=== PATIENT | male | born 1940 | race Hispanic/Latino ===

== ENCOUNTER 2018-09-03 09:37 | Emergency (ER) | payer OTHER ==
--- NOTE | 2018-09-03 10:41 | RAD REPORT ---
EXAM DESCRIPTION: RAD - Ribs Left - 09/03/2018 10:35 am CLINICAL HISTORY: PAIN Trauma COMPARISON: Chest Pa And Lat (2 Views) dated 09/03/2018 FINDINGS: Left lateral seventh rib demonstrates cortical irregularity likely representing a fracture . Displacement is minimal. Additional fracture is not seen. No underlying pneumothorax is present.
--- NOTE | 2018-09-03 10:41 | RAD REPORT ---
EXAM DESCRIPTION: RAD - Chest Pa And Lat (2 Views) - 09/03/2018 10:35 am CLINICAL HISTORY: BLUNT CHEST TRAUMA Chest pain. COMPARISON: Ribs Left dated 09/03/2018 FINDINGS: Linear subsegmental atelectasis is present in the left lung base. No pneumothorax. No foca l infiltrate typical of pneumonia seen. The heart is normal in size.
[2018-09-03 10:59] LABS: Absolute Lymphocytes (CBC) 1.6 K/uL (0.7-4.9); Absolute Monocytes 0.7 K/uL (0.1-1.3); Absolute Neutrophil 5.5 K/uL (1.8-8.0); Basophils % 0.4 % (0-1.3); Eosinophils % 4.1 % (0-4.4); Hematocrit 48.2 % (39.6-49.0); Lymphocytes % 19.7 % (15.3-44.8); MCH 33.9 pg (27.0-35.0); MCV 97.8 fL (80-100); MPV 9.9 fL (7.6-11.3); Monocytes % 8.1 % (3.3-12.3); RBC Red Blood Cell Count 4.93 M/uL (4.33-5.43)
[2018-09-03 11:02] LABS: Protime INR 0.91
[2018-09-03 11:09] LABS: BUN Blood Urea Nitrogen 10 mg/dL (7-18); Bicarbonate 27 mmol/L (21-32); Glucose Level 94 mg/dL (74-106); Lipase 135 U/L (73-393); Potassium 4.2 mmol/L (3.5-5.1); Sodium Level 139 mmol/L (136-145)
--- NOTE | 2018-09-03 11:48 | RAD REPORT ---
EXAM DESCRIPTION: CT - Abdomen Pelvis W Contrast - 09/03/2018 11:22 am CLINICAL HISTORY: left sided abd trauma and bruising left flank, IV only COMPARISON: May 2018 CT imaging TECHNIQUE: Biphasic, helical CT imaging of the abdomen and pelvis was performed following 100 ml non -ionic IV contrast. Oral contrast was given. All CT scans are performed using dose optimization technique as appropriate and may include automated exposure control or mA/KV adjustment according to patient size. FINDINGS: There multiple small 4 mm or less pulmonary nodules in the lower lung moreira. No calcifica tions. No cardiomegaly or pericardial effusion. Small hiatal hernia is present. The liver, spleen, and pancreas show no suspicious findings. Gallbladder and biliary tree are also wi thout suspicious finding. Symmetric renal function is seen with no hydronephrosis or suspicious renal mass. Multiple left-side parapelvic cysts are present as an incidental finding. No dilated bowel loops or bowel wall thickening. Diverticulosis is present without diverticulitis. No appendicitis. No acute GI process seen. No free air, free fluid or inflammatory stranding. No mass or bulky lymphadenopathy. No omental thickening. Bilateral fat filled inguinal hernias are present. T he urinary bladder is without significant finding. No adrenal abnormality. No suspicious bony findings. No clearly blastic or pathologic bone findings. IMPRESSION: No evidence for an acute posttraumatic injury to the abdomen or pelvis. Multiple less than 6 millimeter sized pulmonary nodules seen in the lower lung moreira. Given the pros rubalcava cancer history, follow-up CT chest imaging may be needed as an outpatient for complete character ization of lung moreira. Nonacute findings detailed in the body of the report.
--- NOTE | 2018-09-03 11:54 | EDPHYS ---
Physician Documentation [facility] Name: Roxane Chávez Age: 77 yrs Sex: Male : 1940 Arrival Date: 09/03/2018 Time: 09:40 Bed 18 Private MD: ED Physician Luigi Gonsalves HPI: 09/03 10:22 This 77 yrs old Male presents to ER via Ambulatory with complaints of Fall rn Injury. 10:22 Details of fall: The patient fell from an upright position. Onset: The symptoms/episode rn began/occurred 2 day(s) ago. Associated injuries: The patient sustained injury to the chest, injury to the abdomen. Severity of symptoms: At their worst the symptoms were moderate, in the emergency department the symptoms are unchanged. The patient has not experienced similar symptoms in the past. The patient has not recently seen a physician. REports left abd and rib pain s/p fall 2 days ago, landed on 2x6, pain with movement, not on blood thinners.. Historical: - Allergies: 09:47 No Known Allergies; hj - Home Meds: 09:47 None [Active]; hj - PMHx: 09:47 None; hj - PSHx: 09:47 None; hj - Immunization history:: Adult Immunizations up to date. - Social history:: Smoking status: Patient/guardian denies using tobacco, Patient uses alcohol, occasionally. - Ebola Screening: : Patient negative for fever greater than or equal to 101.5 degrees Fahrenheit, and additional compatible Ebola Virus Disease symptoms Patient denies exposure to infectious person Patient denies travel to an Ebola-affected area in the 21 days before illness onset. - Family history:: not pertinent. - Hospitalizations: : No recent hospitalization is reported. ROS: 10:22 Constitutional: Negative for fever, chills, and weight loss, Eyes: Negative for injury, rn pain, redness, and discharge, Cardiovascular: + left chest wall injury and pain Respiratory: + pleuritic chest pain Abdomen/GI: + left sided abd pain Back: Negative for injury and pain, MS/Extremity: Negative for injury and deformity, Skin: + bruising Neuro: Negative for headache, weakness, numbness, tingling, and seizure. Exam: 10:22 Constitutional: This is a well developed, well nourished patient who is awake, alert, rn and in no acute distress. Head/Face: Normocephalic, atraumatic. Eyes: Pupils equal round and reactive to light, extra-ocular motions intact. Lids and lashes normal. Conjunctiva and sclera are non-icteric and not injected. Cornea within normal limits. Periorbital areas with no swelling, redness, or edema. Chest/axilla: Normal chest wall appearance and motion. No crepitus, + left anterior/inferior rib tenderness Cardiovascular: Regular rate and rhythm with a normal S1 and S2. No gallops, murmurs, or rubs. Normal PMI, no JVD. No pulse deficits. Respiratory: Lungs have equal breath sounds bilaterally, clear to auscultation. No rales, rhonchi or wheezes noted. No increased work of breathing, no retractions or nasal flaring. Abdomen/GI: soft, + left sided abd tenderness, + linear ecchymosis LLQ to epigastric region, no peritoneal signs Back: No spinal tenderness. No costovertebral tenderness. Full range of motion. MS/ Extremity: Pulses equal, no cyanosis. Neurovascular intact. Full, normal range of motion. Equal circumference. Neuro: Awake and alert, GCS 15, oriented to person, place, time, and situation. Cranial nerves II-XII grossly intact. Motor strength 5/5 in all extremities. Sensory grossly intact. Cerebellar exam normal. Normal gait. Vital Signs: 09:49 BP 172 / 127; Pulse 75; Resp 18; Temp 98.1(O); Pulse Ox 97% on R/A; Weight 77.11 kg; Height 5 ft. 11 in. (180.34 cm); Pain 9/10; 10:46 BP 161 / 102; Pulse 79; Resp 18; Pulse Ox 97% on R/A; hj 11:56 BP 160 / 109; Pulse 80; Resp 18; Pulse Ox 97% on R/A; hj 09:49 Body Mass Index 23.71 (77.11 kg, 180.34 cm) 11:56 MD aware; MDM: 09:46 Patient medically screened. rn 11:52 Differential diagnosis: abrasion, contusion, fracture. Data reviewed: vital signs, rn nurses notes, lab test result(s), radiologic studies, plain films, and as a result, I will discharge patient. Counseling: I had a detailed discussion with the patient and/or guardian regarding: the historical points, exam findings, and any diagnostic results supporting the discharge/admit diagnosis, lab results, radiology results, the need for outpatient follow up, to return to the emergency department if symptoms worsen or persist or if there are any questions or concerns that arise at home. Special discussion: Based on the patient's history, exam, and Dx evaluation, there is no indication for emergent intervention or inpatient Tx. It is understood by the patient/guardian that if the Sx's persist or worsen they need to return immediately for re-evaluation. I discussed with the patient/guardian in detail that at this point there is no indication for admission to the hospital. It is understood, however, that if the symptoms persist or worsen the patient needs to return immediately for re-evaluation. 11:52 Special discussion: I discussed with the patient the need to follow-up with the rn PCP/specialist for the noted incidental finding on X-ray/CT scanning. 09/03 09:52 Order name: CBC with Diff; Complete Time: 11:13 09/03 09:52 Order name: Basic Metabolic Panel; Complete Time: 11:13 09/03 09:52 Order name: CT Abd/Pelvis - W/Contrast; Complete Time: 11:51 09/03 09:52 Order name: Protime (+inr); Complete Time: 11:13 09/03 09:52 Order name: Ptt, Activated; Complete Time: 11:13 09/03 09:52 Order name: Lipase; Complete Time: 11:13 09/03 09:52 Order name: IV Start; Complete Time: 10:05 09/03 09:52 Order name: XRAY Chest Pa And Lat (2 Views); Complete Time: 10:58 09/03 09:52 Order name: XRAY Ribs LEFT; Complete Time: 10:58 09/03 10:15 Order name: Labs - recollect needed; Complete Time: 10:42 eb Administered Medications: 11:59 Drug: [place] 10 mg-325 mg 1 tabs Route: PO; hj 12:04 Follow up: Response: No adverse reaction; Pain is decreased hj Disposition: 09/03/18 11:53 Discharged to Home. Impression: Fracture of one rib, left side. - Condition is Stable. - Discharge Instructions: Rib Fracture. - Prescriptions for Tylenol- Codeine #3 300-30 mg Oral Tablet - take 1 tablet by ORAL route every 6 hours As needed; 15 tablet. - Medication Reconciliation Form, Thank You Letter, Antibiotic Education, Prescription Opioid Use form. - Follow up: Private Physician; When: As needed; Reason: Recheck today's complaints, Re-evaluation by your physician. - Problem is new. - Symptoms have improved. Signatures: Dispatcher [employer] EDMS Luigi Gonsalves MD MD rn Joaquin, Henry, RN RN hj Botello, Elizabeth eb Corrections: (The following items were deleted from the chart) 12:07 11:53 09/03/2018 11:53 Discharged to Home. Impression: Fracture of one rib, left side. hj Condition is Stable. Forms are Medication Reconciliation Form, Thank You Letter, Antibiotic Education, Prescription Opioid Use. Follow up: Private Physician; When: As needed; Reason: Recheck today's complaints, Re-evaluation by your physician. Problem is new. Symptoms have improved. rn
--- NOTE | 2018-09-03 11:54 | ER ---
Nurse's Notes [facility] Name: Roxane Chávez Age: 77 yrs Sex: Male : 1940 Arrival Date: 09/03/2018 Time: 09:40 Bed 18 Private MD: Diagnosis: Fracture of one rib, left side Presentation: 09/03 09:45 Presenting complaint: Patient states: was working at home last Saturday when i hit the L hj side of my chest and to a 2x6 wood; ever since monik been hurting especially when i cough or burp or deep breathe; denies SOB;. Transition of care: patient was not received from another setting of care. Onset of symptoms was August 31, 2018. Risk Assessment: Do you want to hurt yourself or someone else? Patient reports no desire to harm self or others. Initial Sepsis Screen: Does the patient meet any 2 criteria? No. Patient's initial sepsis screen is negative. Does the patient have a suspected source of infection? No. Patient's initial sepsis screen is negative. Care prior to arrival: None. 09:45 Method Of Arrival: Ambulatory 09:45 Acuity: TITO 4 hj Triage Assessment: 09:48 General: Appears in no apparent distress. uncomfortable, Behavior is calm, cooperative, hj appropriate for age. Pain: Complains of pain in L side of chest. Historical: - Allergies: 09:47 No Known Allergies; hj - Home Meds: 09:47 None [Active]; hj - PMHx: 09:47 None; hj - PSHx: 09:47 None; hj - Immunization history:: Adult Immunizations up to date. - Social history:: Smoking status: Patient/guardian denies using tobacco, Patient uses alcohol, occasionally. - Ebola Screening: : Patient negative for fever greater than or equal to 101.5 degrees Fahrenheit, and additional compatible Ebola Virus Disease symptoms Patient denies exposure to infectious person Patient denies travel to an Ebola-affected area in the 21 days before illness onset. - Family history:: not pertinent. - Hospitalizations: : No recent hospitalization is reported. Screenin:48 Abuse screen: Denies threats or abuse. Denies injuries from another. Nutritional hj screening: No deficits noted. Tuberculosis screening: No symptoms or risk factors identified. Fall Risk Fall in past 12 months (25 points). Assessment: 09:47 Reassessment: see triage for assessment;. hj 10:30 Reassessment: Patient and/or family updated on plan of care and expected duration. Pain hj level reassessed. Patient is alert, oriented x 3, equal unlabored respirations, skin warm/dry/pink. awaiting results and POC;. 11:56 Reassessment: Patient and/or family updated on plan of care and expected duration. Pain hj level reassessed. Patient is alert, oriented x 3, equal unlabored respirations, skin warm/dry/pink. provider in room for POC and D/C instructions;. Vital Signs: 09:49 BP 172 / 127; Pulse 75; Resp 18; Temp 98.1(O); Pulse Ox 97% on R/A; Weight 77.11 kg; hj Height 5 ft. 11 in. (180.34 cm); Pain 9/10; 10:46 BP 161 / 102; Pulse 79; Resp 18; Pulse Ox 97% on R/A; hj 11:56 BP 160 / 109; Pulse 80; Resp 18; Pulse Ox 97% on R/A; hj 09:49 Body Mass Index 23.71 (77.11 kg, 180.34 cm) hj 11:56 MD aware; hj ED Course: 09:40 Patient arrived in ED. iw 09:40 Carlos Disla, RN is Primary Nurse. hj 09:46 Luigi Gonsalves MD is Attending Physician. rn 09:47 Triage completed. hj 09:48 Arm band placed on right wrist. hj 09:49 Patient has correct armband on for positive identification. Bed in low position. Call light in reach. Side rails up X 1. Adult w/ patient. 09:54 Radiology exam delayed due to lab results not completed at this time. (BUN/Creatinine). sj 10:06 Initial lab(s) drawn, by ma, sent to lab. Inserted saline lock: 20 gauge in right mh5 forearm, using aseptic technique. Blood collected. 10:07 Protime (+inr) Sent. 5 10:07 Ptt, Activated Sent. 5 10:07 Basic Metabolic Panel Sent. 5 10:08 Warm blanket given. Pulse ox on. NIBP on. [facility] 10:08 Lipase Sent. 5 10:13 Radiology exam delayed due to lab results not completed at this time. (BUN/Creatinine). sj 10:34 XRAY Chest Pa And Lat (2 Views) In Process Unspecified. EDMS 10:34 XRAY Ribs LEFT In Process Unspecified. EDMS 10:42 Lab(s) recollected, by me, sent to lab. hj 11:03 Radiology exam delayed due to lab results not completed at this time. (BUN/Creatinine). sj 11:20 CT completed. Patient tolerated procedure well. Patient moved to CT via wheelchair. vr Patient moved back from CT. 11:21 CT Abd/Pelvis - W/Contrast In Process Unspecified. EDMS 12:06 No provider procedures requiring assistance completed. IV discontinued, intact, hj bleeding controlled, No redness/swelling at site. Pressure dressing applied. Administered Medications: 11:59 Drug: [place] 10 mg-325 mg 1 tabs Route: PO; hj 12:04 Follow up: Response: No adverse reaction; Pain is decreased hj Outcome: 11:53 Discharge ordered by MD. rn 12:06 Discharged to home ambulatory, with family. hj 12:06 Condition: stable 12:06 Discharge instructions given to patient, family, Instructed on discharge instructions, follow up and referral plans. medication usage, Demonstrated understanding of instructions, follow-up care, medications, Prescriptions given X 1. 12:07 Patient left the ED. Signatures: Dispatcher [employer] Nelly Pereira Irene, RN Luigi Rodriguez MD MD rn Davis, Victoria vr Joaquin, Henry, RN RN hj Martinez, Maria [facility]
[2018-09-03] MEDS ORDERED: HYDROCODONE/APAP 10/325 TAB ONE (12:07)
== END 2018-09-03 12:07 | disposition home or self-care (01) ==
LOC: ER 09:37
DX: S22.32XA Fracture of one rib, left side, initial encounter for closed fracture (principal); W19.XXXA Unspecified fall, initial encounter; Y93.9 Activity, unspecified; Y92.9 Unspecified place or not applicable
CPT/HCPCS: 36415; 71046; 71100; 74177; 80048; 83690; 85025; 85610; 85730; Q9967

== ENCOUNTER 2018-11-23 11:52 | Emergency (ER) | payer OTHER ==
--- NOTE | 2018-11-23 14:17 | RAD REPORT ---
EXAM DESCRIPTION: CT - Spine Lumbar Wo Con - 11/23/2018 2:06 pm CLINICAL HISTORY: Radiculopathy. Pain;Lower back pain COMPARISON: <Comparisons> TECHNIQUE: Axial noncontrast CT imaging of the lumbar spine was performed with coronal and sagittal re-formatted images. All CT scans are performed using dose optimization technique as appropriate and may include automated exposure control or mA/KV adjustment according to patient size. FINDINGS: No acute lumbar spine fracture seen. No aggressive marrow pattern or malalignment. 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 Paraspinal tissues are normal in thickness. No paraspinal abscess or hematoma seen. Mild posterior disc bulges are seen lower lumbar levels. Within these limitations, no high-grade keny l stenosis suspected. IMPRESSION: No acute cervical spine finding. 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
[2018-11-23 14:52] LABS: Absolute Lymphocytes (CBC) 1.2 K/uL (0.7-4.9); Absolute Monocytes 0.4 K/uL (0.1-1.3); Absolute Neutrophil 8.6 K/uL (1.8-8.0); Basophils % 0.2 % (0-1.3); Eosinophils % 0.8 % (0-4.4); Hematocrit 47.5 % (39.6-49.0); Lymphocytes % 11.7 % (15.3-44.8); MPV 10.4 fL (7.6-11.3); Monocytes % 3.6 % (3.3-12.3); RBC Red Blood Cell Count 4.88 M/uL (4.33-5.43)
--- NOTE | 2018-11-23 15:07 | RAD REPORT ---
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 No fracture, dislocation or aggressive bone lesion.
--- NOTE | 2018-11-23 15:08 | RAD REPORT ---
EXAM DESCRIPTION: RAD - Femur Right - 11/23/2018 3:00 pm CLINICAL HISTORY: PAIN COMPARISON: No comparisons FINDINGS: Osteoarthritic changes are seen involving the right hip. No fracture, dislocation or aggre ssive bone lesion is seen involving the right femur.
[2018-11-23 15:31] LABS: Urine Blood NEGATIVE (NEG); Urine Glucose NEGATIVE (NEG); Urine Protein NEGATIVE (NEG)
--- NOTE | 2018-11-23 15:37 | EDPHYS ---
Physician Documentation [facility] Name: Roxane Chávez Age: 77 yrs Sex: Male : 1940 Arrival Date: 11/23/2018 Time: 11:55 Bed 24 Private MD: HUGO Physician Suman Shah HPI: 11/23 13:43 This 77 yrs old Male presents to ER via Ambulatory with complaints of Back zach Pain. 13:43 The patient presents with pain that is acute, with no known mechanism of injury. The zach symptoms are located in the low back. Onset: The symptoms/episode began/occurred 3 day(s) ago. The pain radiates to the right low back. Associated signs and symptoms: The patient has no apparent associated signs or symptoms. The problem was sustained from unknown cause. Modifying factors: The patient symptoms are alleviated by remaining still, the patient symptoms are aggravated by bending, lifting. Severity of symptoms: At their worst the symptoms were mild, in the emergency department the symptoms are unchanged. The patient has experienced similar episodes in the past, a few times. Historical: - Allergies: 12:05 No Known Allergies; iw - PMHx: 12:05 prostate cancer; iw - PSHx: 12:05 None; iw - Immunization history:: Adult Immunizations not up to date. - Social history:: Smoking status: Smoking status: Patient/guardian denies using tobacco. - Ebola Screening: : Patient negative for fever greater than or equal to 101.5 degrees Fahrenheit, and additional compatible Ebola Virus Disease symptoms Patient denies exposure to infectious person Patient denies travel to an Ebola-affected area in the 21 days before illness onset No symptoms or risks identified at this time. - Family history:: not pertinent. ROS: 13:43 Constitutional: Negative for fever, chills, and weight loss, Eyes: Negative for injury, zach pain, redness, and discharge, ENT: Negative for injury, pain, and discharge, Neck: Negative for injury, pain, and swelling, Cardiovascular: Negative for chest pain, palpitations, and edema, Respiratory: Negative for shortness of breath, cough, wheezing, and pleuritic chest pain, Abdomen/GI: Negative for abdominal pain, nausea, vomiting, diarrhea, and constipation, Back: Negative for injury and pain, : Negative for injury, bleeding, discharge, and swelling, Skin: Negative for injury, rash, and discoloration, Neuro: Negative for headache, weakness, numbness, tingling, and seizure, Psych: Negative for depression, anxiety, suicide ideation, homicidal ideation, and hallucinations, Allergy/Immunology: Negative for hives, rash, and allergies, Endocrine: Negative for neck swelling, polydipsia, polyuria, polyphagia, and marked weight changes, Hematologic/Lymphatic: Negative for swollen nodes, abnormal bleeding, and unusual bruising. 13:43 MS/extremity: Positive for decreased range of motion, pain, of the lumbar area, right mid back and right low back. Exam: 13:43 Constitutional: This is a well developed, well nourished patient who is awake, alert, zach and in no acute distress. Head/Face: Normocephalic, atraumatic. Eyes: Pupils equal round and reactive to light, extra-ocular motions intact. Lids and lashes normal. Conjunctiva and sclera are non-icteric and not injected. Cornea within normal limits. Periorbital areas with no swelling, redness, or edema. ENT: Nares patent. No nasal discharge, no septal abnormalities noted. Tympanic membranes are normal and external auditory canals are clear. Oropharynx with no redness, swelling, or masses, exudates, or evidence of obstruction, uvula midline. Mucous membranes moist. Neck: Trachea midline, no thyromegaly or masses palpated, and no cervical lymphadenopathy. Supple, full range of motion without nuchal rigidity, or vertebral point tenderness. No Meningismus. Chest/axilla: Normal chest wall appearance and motion. Nontender with no deformity. No lesions are appreciated. Cardiovascular: Regular rate and rhythm with a normal S1 and S2. No gallops, murmurs, or rubs. Normal PMI, no JVD. No pulse deficits. Respiratory: Lungs have equal breath sounds bilaterally, clear to auscultation and percussion. No rales, rhonchi or wheezes noted. No increased work of breathing, no retractions or nasal flaring. Abdomen/GI: Soft, non-tender, with normal bowel sounds. No distension or tympany. No guarding or rebound. No evidence of tenderness throughout. Male : Normal genitalia with no discharge or lesions. Skin: Warm, dry with normal turgor. Normal color with no rashes, no lesions, and no evidence of cellulitis. MS/ Extremity: Pulses equal, no cyanosis. Neurovascular intact. Full, normal range of motion. Neuro: Awake and alert, GCS 15, oriented to person, place, time, and situation. Cranial nerves II-XII grossly intact. Motor strength 5/5 in all extremities. Sensory grossly intact. Cerebellar exam normal. Normal gait. Psych: Awake, alert, with orientation to person, place and time. Behavior, mood, and affect are within normal limits. 13:43 Back: pain, that is mild, ROM is painful, normal spinal alignment noted, CVA tenderness, is absent, vertebral tenderness, is not appreciated, muscle spasm, is appreciated in the right mid back and right low back. Vital Signs: 12:05 BP 191 / 110; Pulse 68; Resp 18; Temp 98.2(TE); Pulse Ox 100% ; Weight 80.29 kg; Height iw 5 ft. 11 in. (180.34 cm); Pain 7/10; 13:06 BP 214 / 97; Pulse 83; Resp 16; Pulse Ox 99% on R/A; Pain 8/10; mt 14:00 BP 195 / 140; Pulse 79; Resp 18; Pulse Ox 99% on R/A; mt 15:26 BP 190 / 99; iw 16:35 BP 186 / 90; Pulse 69; Resp 16; Pulse Ox 100% on R/A; iw 12:05 Body Mass Index 24.69 (80.29 kg, 180.34 cm) iw MDM: 13:18 Patient medically screened. [facility] 13:43 Data reviewed: vital signs, nurses notes, lab test result(s), radiologic studies, CT zach scan, plain films. 11/23 13:43 Order name: CBC with Diff; Complete Time: 15:15 [facility] 11/23 13:43 Order name: Urine Culture [facility] 11/23 13:43 Order name: Hip Right 2 View XRAY; Complete Time: 15:15 zach 11/23 13:43 Order name: Femur Right XRAY; Complete Time: 15:15 [facility] 11/23 14:51 Order name: Urine Dipstick--Ancillary (enter results); Complete Time: 15:36 ag 11/23 15:49 Order name: Comprehensive Metabolic Panel; Complete Time: 16:41 [facility] 11/23 13:43 Order name: CT Lumbar Spine Wo Con; Complete Time: 14:30 zach 11/23 13:43 Order name: Urine Dipstick-Ancillary (obtain specimen); Complete Time: 14:48 [facility] 11/23 13:43 Order name: IV Saline Lock - Large Bore; Complete Time: 14:48 [facility] Administered Medications: 15:48 Drug: Norvasc 5 mg Route: PO; iw 16:50 Follow up: Response: No adverse reaction iw 16:12 Drug: [place] (7.5 mg-325 mg) 1 tabs Route: PO; iw 16:50 Follow up: Response: No adverse reaction Disposition: 11/23/18 15:37 Discharged to Home. Impression: Sciatica, right side, Low back pain, Spondylolysis, lumbar region, Essential (primary) hypertension. - Condition is Stable. - Discharge Instructions: Back Pain, Adult, Chronic Back Pain, Hypertension, Musculoskeletal Pain, Sciatica, Back Injury Prevention, Zzmf-bt-Alup, Hypertension, Dmrf-uv-Hzzk, Back Pain, Adult, Zbhf-gk-Ufwz. - Prescriptions for Skelaxin 800 mg Oral Tablet - take 1 tablet by ORAL route every 6 hours As needed; 28 tablet. Tylenol- Codeine #3 300-30 mg Oral Tablet - take 2 tablet by ORAL route every 6 hours As needed; 30 tablet. Motrin IB 200 mg Oral Tablet - take 1 tablet by ORAL route every 6 hours As needed as needed with food; 20 tablet. Medrol (Zac) 4 mg Oral Tablets, Dose Pack - take 1 tablet by ORAL route as directed - follow package instructions; 1 packet. Norvasc 5 mg Oral Tablet - take 1 tablet by ORAL route once daily; 20 tablet. - Medication Reconciliation Form, Thank You Letter, Antibiotic Education, Prescription Opioid Use form. - Follow up: Private Physician; When: 2 - 3 days; Reason: Recheck today's complaints, Continuance of care, Re-evaluation by your physician. Follow up: Concepcion Catherine; When: 2 - 3 days; Reason: Recheck today's complaints, Continuance of care, Re-evaluation by your physician. - Problem is new. - Symptoms have improved. Signatures: Dispatcher [employer] Suman Hernandez MD MD cha Williams, Irene, RN RN iw Corrections: (The following items were deleted from the chart) 17:21 15:37 11/23/2018 15:37 Discharged to Home. Impression: Sciatica, right side; Low back iw pain; Spondylolysis, lumbar region; Essential (primary) hypertension. Condition is Stable. Discharge Instructions: Back Pain, Adult, Chronic Back Pain, Musculoskeletal Pain, Sciatica, Back Injury Prevention, Zzre-gh-Rjwd, Back Pain, Adult, Mmlw-yb-Ctgv. Prescriptions for Skelaxin 800 mg Oral Tablet - take 1 tablet by ORAL route every 6 hours As needed; 28 tablet, Tylenol-Codeine #3 300-30 mg Oral Tablet - take 2 tablet by ORAL route every 6 hours As needed; 30 tablet, Motrin IB 200 mg Oral Tablet - take 1 tablet by ORAL route every 6 hours As needed as needed with food; 20 tablet, Medrol (Zac) 4 mg Oral Tablets, Dose Pack - take 1 tablet by ORAL route as directed - follow package instructions; 1 packet. and Forms are Medication Reconciliation Form, Thank You Letter, Antibiotic Education, Prescription Opioid Use. Follow up: Private Physician; When: 2 - 3 days; Reason: Recheck today's complaints, Continuance of care, Re-evaluation by your physician. Follow up: Concepcion Catherine; When: 2 - 3 days; Reason: Recheck today's complaints, Continuance of care, Re-evaluation by your physician. Problem is new. Symptoms have improved. zach
--- NOTE | 2018-11-23 15:37 | ER ---
Nurse's Notes [facility] Name: Roxane Chávez Age: 77 yrs Sex: Male : 1940 Arrival Date: 11/23/2018 Time: 11:55 Bed 24 Private MD: Diagnosis: Sciatica, right side;Low back pain;Spondylolysis, lumbar region;Essential (primary) hypertension Presentation: 11/23 12:02 Presenting complaint: Patient states: pain radiating from right low back down to right iw knee, X 4 days, denies pain or blood in urine. Transition of care: patient was not received from another setting of care. Onset of symptoms was November 19, 2018. Risk Assessment: Do you want to hurt yourself or someone else? Patient reports no desire to harm self or others. Initial Sepsis Screen: Does the patient meet any 2 criteria? No. Patient's initial sepsis screen is negative. Does the patient have a suspected source of infection? No. Patient's initial sepsis screen is negative. Care prior to arrival: None. 12:02 Method Of Arrival: Ambulatory iw 12:02 Acuity: TITO 4 iw Historical: - Allergies: 12:05 No Known Allergies; iw - PMHx: 12:05 prostate cancer; iw - PSHx: 12:05 None; iw - Immunization history:: Adult Immunizations not up to date. - Social history:: Smoking status: Smoking status: Patient/guardian denies using tobacco. - Ebola Screening: : Patient negative for fever greater than or equal to 101.5 degrees Fahrenheit, and additional compatible Ebola Virus Disease symptoms Patient denies exposure to infectious person Patient denies travel to an Ebola-affected area in the 21 days before illness onset No symptoms or risks identified at this time. - Family history:: not pertinent. Screenin:16 Abuse screen: Denies threats or abuse. Nutritional screening: No deficits noted. tl3 Tuberculosis screening: No symptoms or risk factors identified. Fall Risk None identified. Assessment: 13:16 General: Appears uncomfortable, slender, well groomed, well developed, well nourished, tl3 Behavior is calm, cooperative, appropriate for age. Pain: Complains of pain in right sided pain that radiates from hip to knee. Neuro: Level of Consciousness is awake, alert, obeys commands, Oriented to person, place, time, situation, Appropriate for age. Cardiovascular: Patient's skin is warm and dry. Respiratory: Airway is patent Respiratory effort is even, unlabored, Respiratory pattern is regular, symmetrical. GI: No signs and/or symptoms were reported involving the gastrointestinal system. : No signs and/or symptoms were reported regarding the genitourinary system. EENT: No signs and/or symptoms were reported regarding the EENT system. Derm: No signs and/or symptoms reported regarding the dermatologic system. Musculoskeletal: Reports pain in right sided pain that starts at hip and goes down leg to knee since for the last four days, no known injury. 13:40 Reassessment: I agree with above assessment by Elida Browne LVN. iw 14:04 Reassessment: Patient appears in no apparent distress at this time. No changes from tl3 previously documented assessment. Patient and/or family updated on plan of care and expected duration. Pain level reassessed. Patient is alert, oriented x 3, equal unlabored respirations, skin warm/dry/pink. 14:48 Reassessment: Patient appears in no apparent distress at this time. No changes from tl3 previously documented assessment. Patient and/or family updated on plan of care and expected duration. Pain level reassessed. Patient is alert, oriented x 3, equal unlabored respirations, skin warm/dry/pink. 16:05 Reassessment: Patient appears in no apparent distress at this time. new orders placed iw for CMP, blood drawn and sent to lab, pt updated on POC, new pain med orders placed. Vital Signs: 12:05 BP 191 / 110; Pulse 68; Resp 18; Temp 98.2(TE); Pulse Ox 100% ; Weight 80.29 kg; Height iw 5 ft. 11 in. (180.34 cm); Pain 7/10; 13:06 BP 214 / 97; Pulse 83; Resp 16; Pulse Ox 99% on R/A; Pain 8/10; mt 14:00 BP 195 / 140; Pulse 79; Resp 18; Pulse Ox 99% on R/A; mt 15:26 BP 190 / 99; iw 16:35 BP 186 / 90; Pulse 69; Resp 16; Pulse Ox 100% on R/A; iw 12:05 Body Mass Index 24.69 (80.29 kg, 180.34 cm) iw ED Course: 11:55 Patient arrived in ED. iw 12:04 Triage completed. iw 12:05 Arm band placed on. iw 13:12 María Elena Allred, RN is Primary Nurse. tl3 13:16 Patient has correct armband on for positive identification. Bed in low position. Call tl3 light in reach. Side rails up X 1. Adult w/ patient. Pulse ox on. NIBP on. Warm blanket given. 13:16 No provider procedures requiring assistance completed. tl3 13:18 Suman Shah MD is Attending Physician. zach 14:[address] via wheelchair. tl3 14:06 CT Lumbar Spine Wo Con In Process Unspecified. EDMS 14:48 Initial lab(s) drawn, by me, sent to lab. Inserted saline lock: 20 gauge in right tl3 antecubital area, using aseptic technique. Blood collected. 15:00 Hip Right 2 View XRAY In Process Unspecified. EDMS 15:00 Femur Right XRAY In Process Unspecified. EDMS 15:15 Report received from María Elena Orr RN. ed1 15:34 Primary Nurse role handed off by María Elena Allred, RN ed1 15:34 Elida Browne LVN is Primary Nurse. ed1 15:37 Concepcion Biggs MD is Referral Physician. zach 17:21 Patient did not have IV access during this emergency room visit. iw Administered Medications: 15:48 Drug: Norvasc 5 mg Route: PO; iw 16:50 Follow up: Response: No adverse reaction iw 16:12 Drug: [place] (7.5 mg-325 mg) 1 tabs Route: PO; iw 16:50 Follow up: Response: No adverse reaction iw Outcome: 15:37 Discharge ordered by . zach 17:21 Discharged to home ambulatory, with family. iw 17:21 Condition: good 17:21 Discharge instructions given to patient, family, Instructed on discharge instructions, follow up and referral plans. medication usage, Demonstrated understanding of instructions, follow-up care, medications, Prescriptions given X 4. 17:21 Patient left the ED. iw Signatures: Dispatcher [employer] EDMS Suman Shah MD MD cha Williams, Irene, RN RN iw Elida Browne LVN LVN ed1 Becky Lala sd María Elena Allred, RN RN tl3 Corrections: (The following items were deleted from the chart) 15:27 12:05 BP 119 / 110; Pulse 68bpm; Resp 18bpm; Pulse Ox 100%; Temp 98.2F Temporal; 80.29 iw kg; Height 5 ft. 11 in.; BMI: 24.6; Pain 7/10; iw 15:28 15:26 BP 190 / 99; iw iw 16:19 16:18 BP 110 / 64; Pulse 79bpm; Resp 18bpm; Pulse Ox 100%; tl3 tl3 16:19 16:18 Reassessment: Patient appears in no apparent distress at this time. No changes tl3 from previously documented assessment. Patient and/or family updated on plan of care and expected duration. Pain level reassessed. Patient is alert, oriented x 3, equal unlabored respirations, skin warm/dry/pink. tl3
[2018-11-23] MEDS ORDERED: AMLODIPINE 5 MG TAB ONE (15:54)
[2018-11-23] MEDS ORDERED: HYDROCODONE/APAP 7.5/325 MG TAB ONE (16:17)
[2018-11-23 16:38] LABS: ALT/SGPT 31 U/L (12-78); AST/SGOT 27 U/L (15-37); Albumin 4.5 g/dL (3.4-5.0); Alkaline Phosphatase 75 U/L (45-117); BUN Blood Urea Nitrogen 8 mg/dL (7-18); Bicarbonate 29 mmol/L (21-32); Bilirubin Total 0.5 mg/dL (0.2-1.0); Glucose Level 102 mg/dL (74-106); Potassium 3.8 mmol/L (3.5-5.1); Protein, Total 8.2 g/dL (6.4-8.2); Sodium Level 140 mmol/L (136-145)
== END 2018-11-23 17:21 | disposition home or self-care (01) ==
LOC: ER 11:52
DX: M54.41 Lumbago with sciatica, right side (principal); M47.816 Spondylosis without myelopathy or radiculopathy, lumbar region; I10 Essential (primary) hypertension; Z85.46 Personal history of malignant neoplasm of prostate
CPT/HCPCS: 36415; 72131; 80053; 81003; 85025; 87086; 87088; 99284

== ENCOUNTER 2019-11-04 19:47 | Emergency (ER) | payer OTHER ==
--- OUTSIDE RECORDS SUMMARY | 2019-11-04 19:49 | XMS REPORT ---
:1940 [facility] [address] [place] [address] Dr. Phillips [address] [place] [id number] Care Team Providers Name Role Phone Unavailable Unavailable Unavailable Problems This patient has no known problems. Allergies, Adverse Reactions, Alerts This patient has no known allergies or adverse reactions. Medications This patient has no known medications. Encounters Start End Encounter Admission Attending Care Care Encounter Date/Time Date/Time Type Type Clinicians Facility Department ID 2019-10-14 2019-10-14 Inpatient E [facility] [id number] 03:16:00 00:09:00
[2019-11-04 21:14] LABS: Protime INR 1.11
[2019-11-04 21:15] LABS: Absolute Lymphocytes (CBC) 1.2 K/uL (0.7-4.9); Basophils % 0.2 % (0-1.3); Hematocrit 28.6 % (39.6-49.0); Lymphocytes % 7.9 % (15.3-44.8); MPV 8.9 fL (7.6-11.3); RBC Red Blood Cell Count 3.14 M/uL (4.33-5.43)
[2019-11-04 21:32] LABS: ALT/SGPT 19 U/L (12-78); AST/SGOT 16 U/L (15-37); Albumin 2.7 g/dL (3.4-5.0); Alkaline Phosphatase 79 U/L (45-117); BUN Blood Urea Nitrogen 8 mg/dL (7-18); Bicarbonate 28 mmol/L (21-32); Bilirubin Direct 0.3 mg/dL (0-0.2); Bilirubin Total 0.7 mg/dL (0.2-1.0); Glucose Level 112 mg/dL (74-106); NT PRO-BNP 2913 pg/mL (<450); Potassium 3.5 mmol/L (3.5-5.1); Sodium Level 137 mmol/L (136-145); Troponin (Emerg Dept Use Only) < 0.02 ng/mL (0.0-0.045)
--- NOTE | 2019-11-04 21:42 | RAD REPORT ---
EXAM DESCRIPTION: RAD - Elbow Left 3 View - 11/04/2019 8:56 pm CLINICAL HISTORY: Left elbow pain FINDINGS: No fracture or dislocation is seen. A posterior humeral fat pad is present indicative of joint effusion. Mild joint space narrowing
--- NOTE | 2019-11-04 23:12 | ER ---
Nurse's Notes [facility] Name: Roxane Chávez Age: 78 yrs Sex: Male : 1940 Arrival Date: 11/04/2019 Time: 19:49 Bed 2 Private MD: Diagnosis: Contusion of left upper arm Presentation: 11/04 20:07 Presenting complaint: Patient states: C/O left neck pain and knee that started on ao Saturday. Pt was hospitalize at [facility] and left AMA this morning. Per report pt had an elevated WBC and low K. Pt report pain is getting worst today. Transition of care: patient was not received from another setting of care. Onset of symptoms is unknown. Risk Assessment: Do you want to hurt yourself or someone else? Patient reports no desire to harm self or others. Initial Sepsis Screen: Does the patient meet any 2 criteria? No. Patient's initial sepsis screen is negative. Does the patient have a suspected source of infection? No. Patient's initial sepsis screen is negative. Care prior to arrival: None. 20:07 Method Of Arrival: Ambulatory ao 20:07 Acuity: TITO 3 ao Historical: - Allergies: 20:13 Ciprofloxacin; ao - Home Meds: 20:13 Protonix Oral [Active]; Sucralfate Oral [Active]; ao - PMHx: 20:13 Prostate Cancer; GERD; Hypertension; ao - PSHx: 20:13 None; ao - Immunization history:: Adult Immunizations unknown. - Social history:: Smoking status: Patient/guardian denies using tobacco. - Ebola Screening: : Patient negative for fever greater than or equal to 101.5 degrees Fahrenheit, and additional compatible Ebola Virus Disease symptoms Patient denies exposure to infectious person Patient denies travel to an Ebola-affected area in the 21 days before illness onset. Screenin:15 Abuse screen: Denies threats or abuse. Denies injuries from another. Nutritional ao screening: No deficits noted. Tuberculosis screening: No symptoms or risk factors identified. Fall Risk None identified. Assessment: 20:14 General: Appears in no apparent distress. comfortable, Behavior is calm, cooperative, ao appropriate for age. Pain: Complains of pain in neck and knee Pain does not radiate. Neuro: Level of Consciousness is awake, alert, obeys commands, Oriented to person, place, time, situation, Appropriate for age Moves all extremities. Weakness Speech is normal. Cardiovascular: Capillary refill < 3 seconds Patient's skin is warm and dry. Respiratory: Airway is patent Respiratory effort is even, unlabored, Respiratory pattern is regular, symmetrical. GI: Abdomen is flat, non-distended. : No signs and/or symptoms were reported regarding the genitourinary system. EENT: No signs and/or symptoms were reported regarding the EENT system. Derm: Skin is intact, Skin is pink, warm \T\ dry. normal, Skin temperature is warm C/O elbow pain. Musculoskeletal: Circulation, motion, and sensation intact. Range of motion: intact in all extremities, Swelling present in left arm and left elbow. 20:29 Pain: Complains of pain in left elbow, posterior neck. Musculoskeletal: Range of lp1 motion: limited in left elbow Swelling present in left elbow. 21:34 Reassessment: Patient appears in no apparent distress at this time. Patient and/or lp1 family updated on plan of care and expected duration. Pain level reassessed. Patient is alert, oriented x 3, equal unlabored respirations, skin warm/dry/pink. States tolerable pain to left elbow, denies need for medication. 22:30 Reassessment: Patient appears in no apparent distress at this time. No changes from lp1 previously documented assessment. Patient and/or family updated on plan of care and expected duration. Pain level reassessed. Patient resting, eyes closed, respirations unlabored. Vital Signs: 20:03 BP 141 / 74; Pulse 92; Resp 18; Temp 98.2; Pulse Ox 100% on R/A; Weight 81.65 kg; ao Height 5 ft. 11 in. (180.34 cm); Pain 7/10; 21:35 BP 140 / 74; Pulse 95; Resp 18; Pulse Ox 100% on R/A; lp1 22:56 BP 149 / 69; Pulse 89; Resp 18; Pulse Ox 100% ; ao 20:03 Body Mass Index 25.10 (81.65 kg, 180.34 cm) ao ED Course: 19:49 Patient arrived in ED. ag3 19:55 Hola Ortiz MD is Attending Physician. tw4 20:12 Triage completed. ao 20:14 Arm band placed on right wrist. Patient placed in an exam room, on a stretcher, on ao media monitor, on pulse oximetry, Patient notified of wait time. 20:15 Patient has correct armband on for positive identification. Placed in gown. Bed in low ao position. Call light in reach. monitor car operator on. Pulse ox on. NIBP on. 20:29 Gogo Cali, RN is Primary Nurse. lp1 20:43 EKG done, by ED staff, reviewed by Hola Ortiz MD. ao 20:56 Elbow Left 3 View XRAY In Process Unspecified. EDMS 21:06 Inserted saline lock: 20 gauge in right antecubital area, using aseptic technique. ao Blood collected. 22:24 CXR XRAY In Process Unspecified. EDMS 23:20 No provider procedures requiring assistance completed. IV discontinued, No lp1 redness/swelling at site. Pressure dressing applied. 23:20 Sling applied to left arm. lp1 Administered Medications: No medications were administered Outcome: 23:12 Discharge ordered by MD. tw4 23:20 Discharged to home with significant other. lp1 23:20 Condition: good 23:20 Discharge instructions given to patient, significant other, Instructed on discharge instructions, follow up and referral plans. medication usage, Demonstrated understanding of instructions, follow-up care, medications, Prescriptions given X 1. 23:34 Patient left the ED. lp1 Signatures: Dispatcher [employer] EDDE Gogo Cali, RN RN lp1 Greyson Jorgensen RN Hola Alcantar MD MD tw4 Madison Soriano ag3 Corrections: (The following items were deleted from the chart) 20:06 20:03 BP 141 / 74; Pulse 92bpm; Resp 18bpm; Pulse Ox 100% RA; Temp 98.2F; ao ao 21:36 20:14 Derm: Skin is intact, Skin is pink, warm \T\ dry. normal, Skin temperature is warm ao ao 21:36 20:14 Musculoskeletal: Circulation, motion, and sensation intact. Range of motion: ao intact in all extremities, ao
--- NOTE | 2019-11-04 23:13 | EDPHYS ---
Physician Documentation [facility] Name: Roxane Chávez Age: 78 yrs Sex: Male : 1940 Arrival Date: 11/04/2019 Time: 19:49 Bed 2 Private MD: ED Physician Hola Ortiz HPI: 11/05 05:31 This 78 yrs old Male presents to ER via Ambulatory with complaints of Arm Pain.tw4 05:31 The patient or guardian complains of pain, swelling, tenderness. The complaints affect tw4 the left antecubital area and left elbow. Context: The problem was sustained outdoors, resulted from a fall, on an outstretched hand. Onset: The symptoms/episode began/occurred last week. Treatment prior to arrival includes: no previous treatment. Modifying factors: The symptoms are alleviated by nothing. the symptoms are aggravated by nothing. Severity of symptoms: At their worst the symptoms were moderate, in the emergency department the symptoms are unchanged. 05:31 was admitted to hospital in [facility] for similar complaints. Received CT scan and tw4 workup which per patient states were negative. Pt was receiving antibiotics and left the hospital AMA. Historical: - Allergies: 11/04 20:13 Ciprofloxacin; ao - Home Meds: 20:13 Protonix Oral [Active]; Sucralfate Oral [Active]; ao - PMHx: 20:13 Prostate Cancer; GERD; Hypertension; ao - PSHx: 20:13 None; ao - Immunization history:: Adult Immunizations unknown. - Social history:: Smoking status: Patient/guardian denies using tobacco. - Ebola Screening: : Patient negative for fever greater than or equal to 101.5 degrees Fahrenheit, and additional compatible Ebola Virus Disease symptoms Patient denies exposure to infectious person Patient denies travel to an Ebola-affected area in the 21 days before illness onset. ROS: 11/05 05:31 Constitutional: Negative for fever, chills, and weight loss, Eyes: Negative for injury, tw4 pain, redness, and discharge, Cardiovascular: Negative for chest pain, palpitations, and edema, Respiratory: Negative for shortness of breath, cough, wheezing, and pleuritic chest pain, Abdomen/GI: Negative for abdominal pain, nausea, vomiting, diarrhea, and constipation, Back: Negative for injury and pain, Skin: Negative for injury, rash, and discoloration, Neuro: Negative for headache, weakness, numbness, tingling, and seizure. MS/extremity: Positive for injury or acute deformity, decreased range of motion, pain, swelling, tenderness, of the left antecubital area and left elbow, Negative for abrasion, bite, deformity, ecchymosis, erythema, laceration, paresthesias, puncture, rash, tingling, warmth. Exam: 05:31 Constitutional: This is a well developed, well nourished patient who is awake, alert, tw4 and in no acute distress. Head/Face: Normocephalic, atraumatic. Eyes: Pupils equal round and reactive to light, extra-ocular motions intact. Lids and lashes normal. Conjunctiva and sclera are non-icteric and not injected. Cornea within normal limits. Periorbital areas with no swelling, redness, or edema. Chest/axilla: Normal chest wall appearance and motion. Nontender with no deformity. No lesions are appreciated. Cardiovascular: Regular rate and rhythm with a normal S1 and S2. No gallops, murmurs, or rubs. Normal PMI, no JVD. No pulse deficits. Respiratory: Lungs have equal breath sounds bilaterally, clear to auscultation and percussion. No rales, rhonchi or wheezes noted. No increased work of breathing, no retractions or nasal flaring. Abdomen/GI: Soft, non-tender, with normal bowel sounds. No distension or tympany. No guarding or rebound. No evidence of tenderness throughout. Back: No spinal tenderness. No costovertebral tenderness. Full range of motion. Skin: Warm, dry with normal turgor. Normal color with no rashes, no lesions, and no evidence of cellulitis. Neuro: Awake and alert, GCS 15, oriented to person, place, time, and situation. Cranial nerves II-XII grossly intact. Motor strength 5/5 in all extremities. Sensory grossly intact. Cerebellar exam normal. Normal gait. 05:31 Musculoskeletal/extremity: Extremities: noted in the left antecubital area and left elbow: decreased ROM, pain, ROM: limited active range of motion due to pain, limited passive range of motion due to pain. 05:31 Musculoskeletal/extremity: ROM: Circulation is intact in all extremities. the left antecubital area and left elbow Compartment Syndrome exam of affected extremity: is normal. Vital Signs: 11/04 20:03 BP 141 / 74; Pulse 92; Resp 18; Temp 98.2; Pulse Ox 100% on R/A; Weight 81.65 kg; ao Height 5 ft. 11 in. (180.34 cm); Pain 7/10; 21:35 BP 140 / 74; Pulse 95; Resp 18; Pulse Ox 100% on R/A; lp1 22:56 BP 149 / 69; Pulse 89; Resp 18; Pulse Ox 100% ; ao 20:03 Body Mass Index 25.10 (81.65 kg, 180.34 cm) ao MDM: 19:56 Patient medically screened. tw4 11/05 05:39 Differential diagnosis: dislocation, open fracture, closed fracture, contusion. Data tw4 reviewed: vital signs, nurses notes. Data interpreted: Pulse oximetry: Interpretation: normal. Test interpretation: by ED physician or midlevel provider: ECG, plain radiologic studies. Counseling: I had a detailed discussion with the patient and/or guardian regarding: the historical points, exam findings, and any diagnostic results supporting the discharge/admit diagnosis, lab results, radiology results. 11/04 20:29 Order name: Basic Metabolic Panel; Complete Time: 21:36 tw4 11/04 21:36 Interpretation: Normal except: GLUC 112; GFR 83. tw4 11/04 20:29 Order name: CBC with Diff; Complete Time: 21:36 tw4 11/04 21:36 Interpretation: Normal except: WBC 15.0; RBC 3.14; HGB 9.5; HCT 28.6; MCV 91.0; MCH tw4 30.1; LYM% 7.9; COLT% 81.1; RDW 18.2; NEUT A 12.2; MNA 1.6. 11/04 20:29 Order name: LFT's; Complete Time: 21:36 tw4 11/04 21:36 Interpretation: Normal except: BILID 0.3; ALB 2.7; GLOB 4.3; A/G 0.6. tw4 11/04 20:29 Order name: Magnesium; Complete Time: 21:36 tw4 11/04 21:37 Interpretation: Within normal limits: MG 2.0. tw4 11/04 20:29 Order name: NT PRO-BNP; Complete Time: 21:36 tw4 11/04 21:36 Interpretation: Normal except: NT PRO-BNP 2913. tw11/04 20:29 Order name: PT-INR; Complete Time: 21:36 tw4 11/04 21:37 Interpretation: Normal except: PT 13.1. 11/04 20:29 Order name: Troponin (emerg Dept Use Only); Complete Time: 21:36 tw4 11/04 20:29 Order name: EKG; Complete Time: 20:30 4 11/04 20:29 Order name: Cardiac monitoring; Complete Time: 20:31 tw4 11/04 20:29 Order name: EKG - Nurse/Tech; Complete Time: 20:43 tw4 11/04 20:29 Order name: IV Saline Lock; Complete Time: 21:06 4 11/04 20:29 Order name: Labs collected and sent; Complete Time: 21:06 4 11/04 20:29 Order name: Elbow Left 3 View XRAY 11/04 21:37 Order name: CXR XRAY 11/04 20:29 Order name: O2 Per Protocol; Complete Time: 20:31 tw4 11/04 20:29 Order name: O2 Sat Monitoring; Complete Time: 20:31 tw4 11/04 23:19 Order name: Sling; Complete Time: 23:23 lp1 EC:39 Rate is 88 beats/min. Rhythm is regular. Right axis deviation noted. IL interval is tw4 normal. QRS interval is normal. QT interval is normal. No Q waves. T waves are Normal. No ST changes noted. Clinical impression: NSR w/ Non-specific ST/T Changes. Interpreted by me. Reviewed by me. Administered Medications: No medications were administered Disposition: 11/04/19 23:12 Discharged to Home. Impression: Contusion of left upper arm. - Condition is Stable. - Discharge Instructions: Contusion, Elbow Contusion. - Prescriptions for Tramadol 50 mg Oral Tablet - take 1 tablet by ORAL route every 8 hours as needed; 12 tablet. - Medication Reconciliation Form, Thank You Letter, Antibiotic Education, Prescription Opioid Use form. - Follow up: Private Physician; When: Upon discharge from the Emergency Department; Reason: If symptoms return, Recheck today's complaints, Continuance of care. - Problem is new. - Symptoms have improved. Signatures: Dispatcher [employer] EDGogo Montes RN RN lp1 Greyson Jorgensen RN RN ao Hola Ortiz MD MD tw4 Corrections: (The following items were deleted from the chart) 11/04 23:34 23:12 11/04/2019 23:12 Discharged to Home. Impression: Contusion of left upper arm. lp1 Condition is Stable. Forms are Medication Reconciliation Form, Thank You Letter, Antibiotic Education, Prescription Opioid Use. Follow up: Private Physician; When: Upon discharge from the Emergency Department; Reason: If symptoms return, Recheck today's complaints, Continuance of care. Problem is new. Symptoms have improved. tw4 11/05 05:35 05:31 The patient has not experienced similar symptoms in the past, tw4 tw4
[2019-11-05 02:47] VITALS: TEMP 98.2; O2SAT 100
[2019-11-05 02:49] VITALS: BP 149/69
--- NOTE | 2019-11-05 07:52 | RAD REPORT ---
EXAM DESCRIPTION: MIKAELAAmyt Single View11/04/2019 10:24 pm CLINICAL HISTORY: Shortness of breath COMPARISON: 2018 FINDINGS: Mild left basilar atelectasis Remaining lungs appear clear Heart is normal size
--- NOTE | 2019-11-05 12:43 | EKG ---
Test Date: 2019-11-04 Test Time: 20:39:20 Chemistry Quality Control Technician: KARINA MEASUREMENT RESULTS: Intervals: Rate: 88 NE: 178 QRSD: 90 QT: 370 QTc: 447 Dalbo: P: NE: 178 QRS: 211 T: 161 INTERPRETIVE STATEMENTS: Normal sinus rhythm Right superior axis deviation ST & T wave abnormality, consider inferior ischemia Abnormal ECG No previous ECG available for comparison Electronically Signed On 11-05-19 12:41:37 PROFESSIONAL DEVELOPMENT INSTRUCTOR by Cash De La Cruz
== END 2019-11-04 23:34 | disposition home or self-care (01) ==
LOC: ER 19:47
DX: S40.022A Contusion of left upper arm, initial encounter (principal); X58.XXXA Exposure to other specified factors, initial encounter; Y93.9 Activity, unspecified; Y92.9 Unspecified place or not applicable; Z88.1 Allergy status to other antibiotic agents; K21.9 Gastro-esophageal reflux disease without esophagitis; Z85.46 Personal history of malignant neoplasm of prostate
CPT/HCPCS: 36415; 71045; 80048; 80076; 83735; 83880; 84484; 85025; 85610; 93005; 99284

== ENCOUNTER 2019-11-09 14:03 | Emergency (ER) | payer OTHER ==
--- OUTSIDE RECORDS SUMMARY | 2019-11-09 14:06 | XMS REPORT | Continuity of Care Document ---
:1940 Author Organization [facility] HCIS Care Team Providers Name Role Phone FOUND, PCP NOT Primary Care Physician Unavailable MD CRUZITO YAÑEZ Admitting Physician MD CRUZITO YAÑEZ Attending Physician Allergies, Adverse Reactions, Alerts No known allergies. Medications Medication Status Dose Units Route Sig Qty Days Start End Instructions Date Date Pantoprazole Active 40 MG PO Twice A (Protonix) 40 Day Mg TABEC Sucralfate Active 1 GM PO Before (Carafate) 1 Meals And Gm TAB At Bedtime Problems No problem information available. Procedures Procedure Date Performed Status X-ray of chest, single view November 02, 2019 completed Computed tomography of head or November 03, 2019 completed brain without contrast CT angiography of neck November 03, 2019 completed X-ray of chest, two views November 04, 2019 completed Relevant Diagnostic Tests and/or Laboratory Data Laboratory Results Test Date/Time Result Interpretation Reference Result Performing Range Comment Site White Blood Count October 14.4 4.5-11.5 [facility], [facility] [employer] [facility] 2018 10*3/uL [facility] [address] 5:20am Red Blood Count October 2.79 4.4-6.2 [facility] 2018 10*6/uL [facility] [address] 5:20am Hemoglobin October 8.3 g/dL 13.0-17.5 [facility] 2018 [facility] [address] 5:20am Hematocrit October 25.3 % 39.0-52.5 [facility], [employer] 2018 [place] [address] 5:20am Mean Corpuscular October 90.7 fL 80-94 [facility], [employer] Volume 2018 [place] [address] 5:20am Mean Corpuscular October 29.7 pg 27.0-33.0 [facility] , [employer] Hemoglobin 2018 [place] [address] 5:20am Mean Corpuscular Rinku 32.8 g/dL 33.0-37.0 [facility], [facility] [employer] Hemoglobin 2018 [place] [address] Concent 5:20am Red Cell October 16.3 % 10.7-14.5 [facility], [employer] Distribution 2018 [place] [address] Width 5:20am Platelet Count October 340 150-450 [facility], [employer] 2018 10*3/[place] [address] 5:20am Mean Platelet October 10.1 fL 5.7-10.7 [facility], [employer] Volume 2018 [place] [address] 5:20am Manual October ----- [facility] [employer] Differential 2018 [place] [address] 5:20am Neutrophils % October 87 % 42-75 [facility], [employer] (Manual) 2018 [place] [address] 5:20am Lymphocytes % October 9 % 21-51 [facility], [employer] (Manual) 2018 [place] [address] 5:20am Monocytes % Rinku 2 % 1-9 [facility], [employer] (Manual) 2018 [place] [address] 5:20am Eosinophils % Rinku 2 % 0-7 [employer] [employer] [facility], [employer] (Manual) 2018 [place] [address] 5:20am Platelet Estimate Rinku Adequate [facility], [address] [employer] [address] [place] [address] 5:20am Red Blood Cell October Normal [facility], [facility] [employer] Morphology 2018 [place] [address] 5:20am Urine Source October URINE [facility] Zana [employer] [address] [place] [address] 4:30pm Urine Color October Lt Yellow Yel-Kaylah [facility], [facility] [employer] 2018 * [place] [address] 4:30pm Urine Appearance October Clear Clear * [facility] [employer] [address] [place] [address] 4:30pm Urine pH October 7.0 5.0-8.0 [facility] [employer] [address] [place] [address] 4:30pm Urine Specific Rinku 1.005 1.005-1.03 [facility] [employer] Adams 2018 [address] [place] [address] 4:30pm Urine Protein Rinku Negative Negative * [facility] [employer] 2018 mg/[place] [address] 4:30pm Urine Glucose Rinku Negative Negative * [facility] Zana [employer] (UA) 2018 mg/[place] [address] 4:30pm Urine Ketones Rinku Negative Negative * [facility] [employer] 2018 mg/[place] [address] 4:30pm Urine Occult Rinku Negative Negative * [facility] [employer] Blood 2018 [place] [address] 4:30pm Urine Nitrite Rinku Negative Negative [facility] [employer] [address] [place] [address] 4:30pm Urine Bilirubin Rinku Negative Negative [facility] [employer] 2018 mg/[place] [address] 4:30pm Urine Rinku Negative 0.0-1.0 [facility] [employer] Urobilinogen 2018 mg/[place] [address] 4:30pm Urine Leukocyte October Negative Negative [facility], [employer] Esterase 2018 {Freddy}/[place] [address] 4:30pm Microscopic October Not Ind [facility], [employer] Urinalysis (T) 2018 [place] [address] 4:30pm Urinalysis October * * Ref Range=* [facility], [employer] Comment 2018 Clinical [place] [address] 4:30pm evaluation required. Sodium Level October 136 136-145 [facility], [employer] 2018 mmol/[place] [address] 5:20am Potassium Level October 3.1 3.5-5.1 [facility], [employer] 2018 mmol/[place] [address] 5:20am Chloride Level October 104 98-107 [facility], [employer] 2018 mmol/[place] [facility] [place] [address] 5:20am Carbon Dioxide October 23 mmol/L 23-31 [facility], [employer] Level 2018 [place] [address] 5:20am Anion Gap October 12 07-05 [facility], [employer] 2018 [place] [address] 5:20am Blood Urea October 5 mg/dL 07-13 [facility], [employer] Nitrogen 2018 [place] [address] 5:20am Creatinine October 0.6 mg/dL 0.7-1.3 [facility], [employer] 2018 [place] [address] 5:20am Estimat October 139 50-100 Stages [facility], [employer] Glomerular 2018 [place] [address] Filtration Rate 5:20am with Estimated GFR Known Kidney Disease (ml/min/1.73 sq.meters)Sta ge 1 - Kidney damage w/normal 90 mL/min or greater or increased GFRStage 2 - Kidney disease w/mildly 60-89 mL/min decreased GFRStage 3 - Moderately decreased GFR 30-59 mL/minStage 4 - Severely decreased GFR 15-29 mL/minStage 5 - Kidney failure 14 mL/min or lessTo estimate the GFR for Americans, multiply the result provided by 1.21. BUN/Creatinine October 8 [facility], [facility] [employer] Ratio 2018 [place] [address] 5:20am Glucose Level October 112 mg/dL 60-100 [facility] 2018 [place] [address] 5:20am Calculated October 270 [facility], [facility] [employer] Osmolality 2018 mosm/[place] [address] 5:20am Calcium Level October 8.1 mg/dL 8.8-10.0 [facility] [employer] [address] [place] [address] 5:20am Phosphorus Level October 3.0 mg/dL 2.3-4.7 [facility] , [facility] [employer] 2018 [place] [address] 4:40am Magnesium Level October 1.91 1.60-2.60 [facility] [employer] 2018 mg/[place] [address] 4:40am Total Bilirubin October 0.9 mg/dL 0.2-1.2 [facility] [employer] [address] [place] [address] 4:40am Aspartate Amino October 26 U/L 5-34 [facility] [employer] Transf (AST/SGOT) 2018 [facility] [address] 4:40am Alanine October 13 U/L 0-55 [facility] [employer] Aminotransferase 2018 [place] [address] (ALT/SGPT) 4:40am Total Protein October 6.1 g/dL 5.8-7.6 [facility] [employer] [address] [place] [address] 4:40am Albumin October 3.3 g/dL 3.2-4.7 [facility] [employer] [address] [place] [address] 4:40am Globulin Rinku 2.8 g/dL [facility] [employer] [address] [place] [address] 4:40am Albumin/Globulin Rinku 1.2 [facility] Ratio 2018 [place] [address] 4:40am Alkaline October 71 U/L 40-150 [facility] [employer] Phosphatase 2018 [place] [address] 4:40am Bedside Sodium October 134 136-145 [facility] [employer] 2018 mmol/[place] [address] 4:35pm Bedside Potassium Rinku 2.9 3.5-5.1 Critical [facility] mmol/[place] [employer] [address] 4:35pm reported at bedside.POC testing performed at the bedside. Immediate notification of results given to nurse/physici an at time of testing. Bedside Chloride October 101 100-112 [facility] [employer] 2018 mmol/[place] [address] 4:35pm Bedside Total CO2 October 22.0 24.0-33.0 [facility], [employer] 2018 mmol/[place] [address] 4:35pm Bedside Blood Rinku 5 mg/dL 8-23 [facility], [employer] Urea Nitrogen 2018 [place] [address] 4:35pm Bedside Rinku 0.7 mg/dL 0.9-1.5 [facility], [employer] Creatinine 2018 [place] [address] 4:35pm Bedside Glucose October 105 mg/dL 60-100 [facility], [employer] [address] [place] [address] 4:35pm Bedside Whole Rinku 1.04 1.12-1.32 [facility], [employer] Blood Ionized 2018 mmol/[place] [address] Calcium 4:35pm Bedside Anion Gap October 16 8-18 [facility], [employer] 2018 [place] [address] 4:35pm Estimat October 117 50-100 Stages [facility], [employer] Glomerular 2018 [place] [address] Filtration Rate 4:35pm with Estimated GFR Known Kidney Disease (ml/min/1.73 sq.meters)Sta ge 1 - Kidney damage w/normal 90 mL/min or greater or increased GFRStage 2 - Kidney disease w/mildly 60-89 mL/min decreased GFRStage 3 - Moderately decreased GFR 30-59 mL/minStage 4 - Severely decreased GFR 15-29 mL/minStage 5 - Kidney failure 14 mL/min or lessTo estimate the GFR for Americans, multiply the result provided by 1.21. Bedside October 10.2 g/dL 13.0-17.5 [facility], [employer] Hemoglobin 2018 [place] [address] 4:35pm Bedside October 30.0 % 40.0-53.0 [facility], [employer] Hematocrit 2018 [place] [address] 4:35pm Bedside Lactic October 1.18 0.50-2.20 [facility], [employer] Acid Venous 2018 mmol/L [facility] [employer] [address] 6:04pm Microbiology Results Procedure Source Result Collection Result Result Performing Date/Time Date/Time Comment Site Blood Culture Blood, No growth October [facility], [address] Peripheral in 24 hrs. 2018 [place] [address] Blood Draw 6:05pm 12:10am Diagnostic Imaging Reports Report Dictated Date/Time Dictated By Status Chest X-Ray November 02, 2019 ANTONIO CASTAÑEDA MD completed 6:25pm EXAM: Chest one view HISTORY: Leukocytosis, neck pain COMPARISON: None FINDINGS AND IMPRESSION: No focal airspace consolidation, pleural effusion or significant pulmonary edema is identified. The cardiac silhouette is normal in size. Dictated By: ANTONIO CASTAÑEDA MD Date Dictated: 11/02/191824 Signed by: ANTONIO CASTAÑEDA MD Date Signed: 11/02/191824 CT Angiography November 03, 2019 PRATIBHA WHITMAN MD completed 4:19pm History: Recent fall/injury. Neck pain. Elevated white blood cell count. COMPARISON: None CT head without contrast, 11/03/2019, 1332 hours TECHNIQUE: Axial tomographic images are performed. Sagittal and coronal reformatted images are also provided. This CT exam was performed using one or more of the following dose reduction techniques: Automated exposure control, adjustment of the MA and/or KV according to patient's size, or use of iterative reconstruction technique. FINDINGS: There is no acute intracranial bleed nor mass effect process. Mild age-appropriate generalized cortical atrophy is present with moderate bilateral supratentorial periventricular white matter low density related to small vessel ischemia and/or degenerative gliosis. There is some atherosclerotic calcif ication involving the bilateral ICA and distal vertebral arteries. Bilateral lentiform nucleus etiopathic basal ganglia calcifications are noted. Calvarium, sinuses and mastoid air cells are maintained. There is left to right nasal septal deviation. Bilateral cataract surgery is evident. IMPRESSION: 1. No acute abnormality noted. 2. Small vessel disease and intracranial atherosclerosis. CT angiography neck, 11/03/2019, 1339 hours TECHNIQUE: Spiral CT angiography of the cervical arterial circulation is performed following IV water soluble contrast solution. 2-D coronal and/or sagittal MIP and/or MPR images are reviewed. 3-D surface shaded and volume rendering images are reviewed. This CT exam was performed using one or more the following dose reduction techniques: Automated exposure control, adjustment of the MA and/or KV according to patient's size, or use of iterative reconstruction technique. COMPARISON: As above FINDINGS: There is mild to moderate scattered atherosclerotic calcification involving the visualized aortic arch, base of the bilateral great vessels, bilateral carotid bulbs and also the bilateral parasellar ICA compartments. No definite hemodynamic significant stenosis is seen at any level. No nirav occlusive disease is noted. Vertebral arteries are patent with left side being developmentally hypoplastic. Note is made of severe degenerative spurring and disc space narrowing changes within the primarily C4-C7 vertebral level. IMPRESSION: 1. Mild to moderate scattered thoracic, cervical and intracranial atherosclerosis but without nirav hemodynamic significant stenosis. 2. Advanced cervical spondylosis. Dictated By: PRATIBHA WHITMAN MD Date Dictated: 11/03/191618 Signed by: PRATIBHA WHITMAN MD Date Signed: 11/03/[address] November 03, 2019 PRATIBHA WHITMAN MD completed 4:19pm History: Recent fall/injury. Neck pain. Elevated white blood cell count. COMPARISON: None CT head without contrast, 11/03/2019, 1332 hours TECHNIQUE: Axial tomographic images are performed. Sagittal and coronal reformatted images are also provided. This CT exam was performed using one or more of the following dose reduction techniques: Automated exposure control, adjustment of the MA and/or KV according to patient's size, or use of iterative reconstruction technique. FINDINGS: There is no acute intracranial bleed nor mass effect process. Mild age-appropriate generalized cortical atrophy is present with moderate bilateral supratentorial periventricular white matter low density related to small vessel ischemia and/or degenerative gliosis. There is some atherosclerotic calcif ication involving the bilateral ICA and distal vertebral arteries. Bilateral lentiform nucleus etiopathic basal ganglia calcifications are noted. Calvarium, sinuses and mastoid air cells are maintained. There is left to right nasal septal deviation. Bilateral cataract surgery is evident. IMPRESSION: 1. No acute abnormality noted. 2. Small vessel disease and intracranial atherosclerosis. CT angiography neck, 11/03/2019, 1339 hours TECHNIQUE: Spiral CT angiography of the cervical arterial circulation is performed following IV water soluble contrast solution. 2-D coronal and/or sagittal MIP and/or MPR images are reviewed. 3-D surface shaded and volume rendering images are reviewed. This CT exam was performed using one or more the following dose reduction techniques: Automated exposure control, adjustment of the MA and/or KV according to patient's size, or use of iterative reconstruction technique. COMPARISON: As above FINDINGS: There is mild to moderate scattered atherosclerotic calcification involving the visualized aortic arch, base of the bilateral great vessels, bilateral carotid bulbs and also the bilateral parasellar ICA compartments. No definite hemodynamic significant stenosis is seen at any level. No nirav occlusive disease is noted. Vertebral arteries are patent with left side being developmentally hypoplastic. Note is made of severe degenerative spurring and disc space narrowing changes within the primarily C4-C7 vertebral level. IMPRESSION: 1. Mild to moderate scattered thoracic, cervical and intracranial atherosclerosis but without nirav hemodynamic significant stenosis. 2. Advanced cervical spondylosis. Dictated By: PRATIBHA WHITMAN MD Date Dictated: 11/03/191618 Signed by: PRATIBHA WHITMAN MD Date Signed: 11/03/191627 Chest X-Ray November 04, 2019 ANTONIO CASTAÑEDA MD completed 5:43pm EXAM: Chest 2 views HISTORY: Shortness of breath, left upper extremity pain. COMPARISON: Chest 11/02/2019 FINDINGS AND IMPRESSION: The lungs are emphysematous. No focal airspace consolidation, pleural effusion or significant pulmonary edema is identified. The cardiac silhouette is normal in size. Dictated By: ANTONIO CASTAÑEDA MD Date Dictated: 11/04/191742 Signed by: ANTONIO CASTAÑEDA MD Date Signed: 11/04/191743 Health Concerns Health Concerns may be documented in an alternate section. Advance Directives Advance Directive Response Recorded Date/Time Does the Patient have an No November 02, 2019 5:16pm Advance Directive? Chief Complaint and Reason for Visit Chief Complaint NECK PAIN FOR SEVERAL DAYS,TODAY FELL TO KNEES Reason for Visit null null null Encounters Encounter Location(s) Arrival/Admit Date Discharge/Depart Date Provider(s) Discharged [facility] November 02, November 04, 2019 [facility] 2018 5:41pm 1:48pm CRUZITO Banegas MD Assessments No Assessments Information Available Functional Status No Functional Status information available Goals Goals may be documented in an alternate section. Immunizations No Immunization Information Available Mental Status No Mental Status Information Available Medical Equipment No Medical Equipment Information available Insurance Providers Guarantor Aniket Chávez Address [address] [address] Contact Info. Home Phone: Payer Policy Id Coverage Id Subscriber's Subscriber Id Effective Expiration Name Date Date d [id number] Chávez, [id number] November Medicare [place] 2018 Out Of [facility] Mm Plan of Treatment Future Tests Future scheduled test information is unavailable Pending Tests Test Name Date ordered Blood Culture November 03, 2019 4:48pm White Blood Count November 05, 2019 4:00am Red Blood Count November 05, 2019 4:00am Hemoglobin November 05, 2019 4:00am Hematocrit November 05, 2019 4:00am Mean Corpuscular Volume November 05, 2019 4:00am Mean Corpuscular Hemoglobin November 05, 2019 4:00am Mean Corpuscular Hemoglobin Concent November 05, 2019 4:00am Red Cell Distribution Width November 05, 2019 4:00am Platelet Count November 05, 2019 4:00am Mean Platelet Volume November 05, 2019 4:00am Manual Differential November 05, 2019 4:00am Sodium Level November 05, 2019 4:00am Potassium Level November 05, 2019 4:00am Chloride Level November 05, 2019 4:00am Carbon Dioxide Level November 05, 2019 4:00am Anion Gap November 05, 2019 4:00am Blood Urea Nitrogen November 05, 2019 4:00am Creatinine November 05, 2019 4:00am Estimat Glomerular Filtration Rate November 05, 2019 4:00am BUN/Creatinine Ratio November 05, 2019 4:00am Glucose Level November 05, 2019 4:00am Calculated Osmolality November 05, 2019 4:00am Calcium Level November 05, 2019 4:00am Future Visits Future appointment information is unavailable Referrals to Other Providers Referral information is unavailable Future Procedures Future procedure information is unavailable Future Medications Future medication information is unavailable Patient Instructions OTHER Social History Assigned Sex Male Vital Signs Vital Reading Result Reference Range Collection Date/Time Body Temperature 99.5 [degF] (97.6 - 99.5) November 04, 2019 12:00pm Heart Rate 94 /min (60 - 100) November 04, 2019 12:00pm Heart Rate 75 /min November 02, 2019 11:46pm Respiratory rate 20 /min (12 - 24) November 04, 2019 12:00pm Respiratory rate 20 /min November 02, 2019 11:46pm BP Systolic 158 mm[Hg] (100 - 140) November 04, 2019 12:00pm BP Systolic 145 mm[Hg] November 02, 2019 11:46pm BP Diastolic 77 mm[Hg] (60 - 90) November 04, 2019 12:00pm BP Diastolic 63 mm[Hg] November 02, 2019 11:46pm Weight 186 [lb_av] November 02, 2019 4:12pm BMI (Body Mass Index) 25.9 kg/m2 November 02, 2019 4:12pm
--- OUTSIDE RECORDS SUMMARY | 2019-11-09 14:06 | XMS REPORT ---
:1940 [facility] Address [address] [place] [address] Dr. Phillips [address] [place] [id number] Care Team Providers Name Role Phone Unavailable [...]
[2019-11-09] MEDS ORDERED: ONDANSETRON 4 MG/2 ML VIAL ONE (15:32)
[2019-11-09] MEDS ORDERED: MORPHINE 2 MG/ML SYR ONE (15:32)
--- NOTE | 2019-11-09 16:37 | RAD REPORT ---
EXAM DESCRIPTION: CT - [id number] - 11/09/2019 4:18 pm CLINICAL HISTORY: Headache, neck pain COMPARISON: None. TECHNIQUE: Axial 5 mm thick images of the head were obtained. Axial 2 mm thick images of the cervic al spine were obtained with sagittal and coronal reconstruction images generated and reviewed. All CT scans are performed using dose optimization technique as appropriate and may include automated exposure control or mA/KV adjustment according to patient size. FINDINGS: No intracranial hemorrhage, mass, edema or acute intracranial finding. No suspicion for acute infarct ion. No cortical edema or sulcal effacement. Patient has mild to moderate atrophy. Ventricles are in proportion to volume loss. Mild to moderate chronic ischemic changes are present. Physiologic basal g anglia calcifications are present. Arterial tree calcifications also present. Mastoid air cells and p aranasal sinuses are clear. No globe or orbit abnormality seen. Anterior wedging of the C5 body is present. There is mild loss in height C6. These are both associate d with chronic degenerative change. Acute compression is not suspected. There is slight retrolisthesi s of C6 on C7. Severe disc space narrowing at C6-7 with [id number] disc space narrowing at C4 -5 and C5-6. Large anterior spurs are present C4-C7. No fracture or destructive bone process identifi ed. Patient has significant right bony foraminal encroachment C3-4 from severe facet hypertrophy and uncovertebral joint hypertrophy. [id number] bilateral foraminal encroachment at C4-5 from uncov ertebral joint hypertrophy. This is slightly less prominent at C5-6. Mild to moderate right-side and severe left-sided foraminal stenosis at C6-7. Endplate spurring causes central spinal stenosis to 9 m m at C6-7. No paraspinal mass or hematoma. IMPRESSION: Atrophy and chronic ischemic changes are present without an acute intracranial finding. Chronic ischemic changes can mask nonhemorrhagic acute infarction. MR brain followup can be obtained if there is ongoing concern for acute ischemia. Advanced cervical spine degenerative changes are present as detailed. No fracture or acute finding id entifiable.
--- NOTE | 2019-11-09 17:10 | ER ---
Nurse's Notes [facility] Name: Roxane Chávez Age: 78 yrs Sex: Male : 1940 Arrival Date: 11/09/2019 Time: 14:06 Bed 25 Private MD: Diagnosis: Strain of muscle, fascia and tendon at neck level Presentation: 11/09 14:27 Presenting complaint: states: headache all over, neck pain, joint pain all over sv since his fall last Saturday. Was seen here a few days back. Transition of care: patient was not received from another setting of care. Onset of symptoms was November 01, 2019. Risk Assessment: Do you want to hurt yourself or someone else? Patient reports no desire to harm self or others. Initial Sepsis Screen: Does the patient meet any 2 criteria? No. Patient's initial sepsis screen is negative. Does the patient have a suspected source of infection? No. Patient's initial sepsis screen is negative. Care prior to arrival: None. 14:27 Method Of Arrival: Wheelchair sv 14:27 Acuity: TITO 3 sv Historical: - Allergies: 14:29 Ciprofloxacin; sv - PMHx: 14:29 GERD; Hypertension; Prostate Cancer; sv - PSHx: 14:29 None; sv - Immunization history:: Flu vaccine status is unknown. - Social history:: Smoking status: unknown. - Ebola Screening: : No symptoms or risks identified at this time. Screenin:12 Abuse screen: Denies threats or abuse. Denies injuries from another. Nutritional mg2 screening: No deficits noted. Tuberculosis screening: No symptoms or risk factors identified. Fall Risk IV access (20 points). Assessment: 16:30 General: Appears in no apparent distress. comfortable, Behavior is calm, cooperative. mg2 Pain: Complains of pain in head. Neuro: Level of Consciousness is awake, alert, obeys commands, Oriented to person, place, time, situation, Reports headache. Cardiovascular: Capillary refill < 3 seconds Patient's skin is warm and dry. Respiratory: Airway is patent Respiratory effort is even, unlabored, Respiratory pattern is regular, symmetrical. GI: No signs and/or symptoms were reported involving the gastrointestinal system. : No signs and/or symptoms were reported regarding the genitourinary system. EENT: No signs and/or symptoms were reported regarding the EENT system. Derm: Skin is intact, is healthy with good turgor, Skin is pink, warm \T\ dry. normal. Musculoskeletal: Circulation, motion, and sensation intact. Capillary refill < 3 seconds, Reports pain in neck. Vital Signs: 14:29 BP 158 / 79; Pulse 83; Resp 16; Temp 98.6; Pulse Ox 100% ; Weight 80.74 kg; Height 5 sv ft. 11 in. (180.34 cm); Pain 8/10; 16:10 BP 138 / 78; Pulse 80; Resp 18; Temp 98; Pulse Ox 100% on R/A; mg2 17:15 BP 148 / 78; Pulse 80; Resp 18; Temp 98; Pulse Ox 100% on R/A; mg2 14:29 Body Mass Index 24.83 (80.74 kg, 180.34 cm) sv ED Course: 14:06 Patient arrived in ED. ag5 14:24 Chucky Guadarrama PA is PHCP. jm 14:24 Larissa Shaw MD is Attending Physician. jmm 14:28 Triage completed. sv 14:29 Arm band placed on. sv 14:54 Dderick Rodgers, RN is Primary Nurse. mg2 16:18 CT Head C Spine In Process Unspecified. EDMS 16:30 Inserted saline lock: in right hand, using aseptic technique. mg2 17:12 No provider procedures requiring assistance completed. mg2 17:13 Patient has correct armband on for positive identification. mg2 17:37 IV discontinued, intact, bleeding controlled, No redness/swelling at site. Pressure mg2 dressing applied. Administered Medications: 15:41 Drug: morphine 2 mg Route: IVP; Site: right hand; mg2 17:15 Follow up: Response: No adverse reaction; Marked relief of symptoms mg2 15:41 Drug: Zofran 4 mg Route: IVP; Site: right hand; mg2 17:15 Follow up: Response: No adverse reaction; Marked relief of symptoms mg2 Outcome: 17:09 Discharge ordered by . jmm 17:38 Discharged to home via wheelchair, with family. mg2 17:38 Condition: stable 17:38 Discharge instructions given to patient, family, Instructed on discharge instructions, follow up and referral plans. medication usage, Demonstrated understanding of instructions, follow-up care, medications, Prescriptions given X 1. 17:39 Patient left the ED. mg2 Signatures: Dispatcher [employer] Michelle Fuchs RN RN sv Mickail, Joel, PA PA jmm Gardose, Michele, RN RN mg2 Celio Murphy ag5
--- NOTE | 2019-11-09 17:10 | EDPHYS ---
Physician Documentation [facility] Name: Roxane Chávez Age: 78 yrs Sex: Male : 1940 Arrival Date: 11/09/2019 Time: 14:06 Bed 25 Private MD: ED Physician Larissa Shaw HPI: 11/09 15:29 This 78 yrs old Male presents to ER via Wheelchair with complaints of jmm Headache, Joint Pain, Neck Pain, >24Hrs Old. 15:29 Onset: The symptoms/episode began/occurred gradually, 1 week(s) ago. Associated signs jmm and symptoms: Pertinent positives: Pertinent negatives: fever. This is a 78 year old male with a history of GERD, HTN that presents to the ED with complaints of ongoing headache and neck pain. Patient states approx 1 week ago he fell and was evaluated at a hospital in [place]. Patient was admitted. Patient was reevaluated at this ED on 11/04 due to complains of elbow pain. states pain resolved for a few days but the patient now has worsening neck pain and headache. . Historical: - Allergies: 14:29 Ciprofloxacin; sv - PMHx: 14:29 GERD; Hypertension; Prostate Cancer; sv - PSHx: 14:29 None; sv - Immunization history:: Flu vaccine status is unknown. - Social history:: Smoking status: unknown. - Ebola Screening: : No symptoms or risks identified at this time. ROS: 15:59 Constitutional: Negative for fever, chills, and weight loss, Cardiovascular: Negative jmm for chest pain, palpitations, and edema, Respiratory: Negative for shortness of breath, cough, wheezing, and pleuritic chest pain. 15:59 Neck: Positive for pain with movement. 15:59 Neuro: Positive for headache. 15:59 All other systems are negative. Exam: 15:59 Constitutional: This is a well developed, well nourished patient who is awake, alert, jmm and in no acute distress. Head/Face: atraumatic. Eyes: EOMI, no conjunctival erythema appreciated ENT: Moist Mucus Membranes Neck: Trachea midline, Supple Chest/axilla: Normal chest wall appearance and motion. Cardiovascular: Regular rate and rhythm. No edema appreciated Respiratory: Normal respirations, no respiratory distress appreciated Abdomen/GI: Non distended, soft Back: Normal ROM Skin: General appearance color normal MS/ Extremity: Moves all extremities, no obvious deformities appreciated, no edema noted to the lower extremities Neuro: Awake and alert, normal gait Psych: Behavior is normal, Mood is normal, Patient is cooperative and pleasant Vital Signs: 14:29 BP 158 / 79; Pulse 83; Resp 16; Temp 98.6; Pulse Ox 100% ; Weight 80.74 kg; Height 5 sv ft. 11 in. (180.34 cm); Pain 8/10; 16:10 BP 138 / 78; Pulse 80; Resp 18; Temp 98; Pulse Ox 100% on R/A; mg2 17:15 BP 148 / 78; Pulse 80; Resp 18; Temp 98; Pulse Ox 100% on R/A; mg2 14:29 Body Mass Index 24.83 (80.74 kg, 180.34 cm) sv MDM: 15:25 Patient medically screened. [facility] 17:08 Data reviewed: vital signs, nurses notes. Counseling: I had a detailed discussion with kenneth the patient and/or guardian regarding: the historical points, exam findings, and any diagnostic results supporting the discharge/admit diagnosis, radiology results, the need for outpatient follow up, to return to the emergency department if symptoms worsen or persist or if there are any questions or concerns that arise at home. ED course: Pain is relieved in the ED. Patient advised to follow up with pcp and otherwise given strict return precautions. Patient and understood and agrees with the plan of care. . 11/09 15:59 Order name: CT Head C Spine; Complete Time: 16:43 [facility] 11/09 15:26 Order name: Saline Lock; Complete Time: 15:41 [facility] Administered Medications: 15:41 Drug: morphine 2 mg Route: IVP; Site: right hand; mg2 17:15 Follow up: Response: No adverse reaction; Marked relief of symptoms mg2 15:41 Drug: Zofran 4 mg Route: IVP; Site: right hand; mg2 17:15 Follow up: Response: No adverse reaction; Marked relief of symptoms mg2 Disposition: 11/10 07:28 Co-signature as Attending Physician, Larissa Shaw MD. ma2 Disposition: 11/09/19 17:09 Discharged to Home. Impression: Strain of muscle, fascia and tendon at neck level. - Condition is Stable. - Discharge Instructions: Muscle Strain. - Prescriptions for orphenadrine citrate 100 mg Oral Tablet Sustained Release - take 1 tablet by ORAL route 2 times per day As needed; 20 tablet. - Medication Reconciliation Form, Thank You Letter, Antibiotic Education, Prescription Opioid Use form. - Follow up: Private Physician; When: 2 - 3 days; Reason: Recheck today's complaints, Continuance of care, Re-evaluation by your physician. Signatures: Dispatcher [employer] EDMichelle Dimas RN RN Chucky Gonzalez PA PA jmm Alzahri, Mohammad, MD MD ma2 Dedrick Rodgers RN RN mg2 Corrections: (The following items were deleted from the chart) 11/09 16:01 15:29 This is a 78 year old male with a history of GERD. jorge alberto azul 17:39 17:09 11/09/2019 17:09 Discharged to Home. Impression: Strain of muscle, fascia and mg2 tendon at neck level. Condition is Stable. Forms are Medication Reconciliation Form, Thank You Letter, Antibiotic Education, Prescription Opioid Use. Follow up: Private Physician; When: 2 - 3 days; Reason: Recheck today's complaints, Continuance of care, Re-evaluation by your physician. jorge alberto
[2019-11-09 19:31] VITALS: TEMP 98; O2SAT 100
[2019-11-09 19:34] VITALS: BP 148/78
== END 2019-11-09 17:39 | disposition home or self-care (01) ==
LOC: ER 14:03
DX: S16.1XXA Strain of muscle, fascia and tendon at neck level, initial encounter (principal); I10 Essential (primary) hypertension; Z85.46 Personal history of malignant neoplasm of prostate; Z88.1 Allergy status to other antibiotic agents
CPT/HCPCS: 70450; 72125; 96375; 96374; 99284; J2270; J2405

== ENCOUNTER 2020-05-27 08:08 | Emergency (ER) | payer OTHER ==
--- OUTSIDE RECORDS SUMMARY | 2020-05-27 08:30 | XMS REPORT | Continuity of Care Document ---
:1940 Author Organization [facility] t Address [address] [place] [address] Care Team Providers Name Role Phone FOUND, NOT Primary Care Physician Unavailable Advance Directives Directive Decision Effective Date Termination Date Comments Sour ce Yes N/A [facility] Problems Condition Condition Condition Status Onset Resolution Last Treating Co mments Source Name Details Category Date Date Treatment Clinician Date Problem Condition [facility] Allergies, Adverse Reactions, Alerts This patient has no known allergies or adverse reactions. Social History Social Habit Start Date Stop Date Quantity Comments Source Sex Assigned At [birth year] Male [facility] 00:00:00 00:00:00 [facility] Smoking Status Start Date Stop Date Source Unknown if ever smoked [facility] Medications Ordered Filled Start Stop Current Ordering Indication Dosage Frequency Signature Comments Components Source Medication Medication Date Date Medication? Clinician (SIG) Name Name Pantoprazol No 40mg CHRISTU e S - (Protonix) [facility] 40 Mg [facility] Sucralfate No 1 CHRISTU (Carafate) S - 1 Gm TAB [facility] Vital Signs Vital Name Observation Time Observation Value Comments Source Body Temperature 2019-11-04 12:00:00 99.5 [degF] [facility] 2019-11-04 12:00:00 94 /min [facility] Respiratory rate 2019-11-04 12:00:00 20 /min CHRI [facility] BP Systolic 2019-11-04 12:00:00 158 mm[Hg] [facility] BP Diastolic 2019-11-04 12:00:00 77 mm[Hg] [facility] Heart Rate 2019-11-02 23:46:00 75 /min [facility] Respiratory rate 2019-11-02 23:46:00 20 /min CHRI [facility] BP Systolic 2019-11-02 23:46:00 145 mm[Hg] [facility] BP Diastolic 2019-11-02 23:46:00 63 mm[Hg] [facility] Weight 2019-11-02 16:12:00 186 [lb_av] [facility] BMI (Body Mass Index) 2019-11-02 16:12:00 25.9 kg/m2 [facility] Procedures Procedure Date / Time Performed Performing Clinician [facility] e X-ray of chest, two 2019-11-04 00:00:00 [facility] Computed tomography of 2019-11-03 00:00:00 LEE Fleming head or brain without [facility] ospital contrast CT angiography of neck 2019-11-03 00:00:00 LEE Makenzie Lonnie [facility] X-ray of chest, single 2019-11-02 00:00:00 [facility] Planned Activity Planned Date Details Comments Source Future Scheduled Test Bacterial blood culture [facility] Lonnie [code = 600-7] [facility] Future Scheduled Test Automated blood CHR ISABA - Lonnie leukocyte count [facility] (number/volume) [code = 6690-2] Future Scheduled Test Blood erythrocytes SULMA - Lonnie automated count [facility] (number/volume) [code = 789-8] Future Scheduled Test Blood hemoglobin CH RISABA - Lonnie measurement [facility] al (mass/volume) [code = 718-7] Future Scheduled Test Automated blood CHR ISNing - [facility] hematocrit (volume [facility] fraction) [code = 4544-3] Future Scheduled Test Automated erythrocyte [facility] - [facility] mean corpuscular volume [facility] (MCV) measurement [code = 787-2] Future Scheduled Test Automated erythrocyte [facility] - [facility] mean corpuscular [facility] spital hemoglobin (mass per erythrocyte) [code = 785-6] Future Scheduled Test Automated erythrocyte [facility] mean corpuscular [facility] spital hemoglobin concentration measurement (mass/vol [code = 786-4] Future Scheduled Test Automated erythrocyte [facility] distribution width [facility] ratio [code = 788-0] Future Scheduled Test Automated blood CHR ISTUS - [facility] platelet count [facility] (count/volume) [code = 777-3] Future Scheduled Test Automated blood CHR ISTUS - [facility] platelet mean volume [facility] measurement [code = 10896-9] Future Scheduled Test Service comment 04 [facility] - Tift [code = 8265-1] [facility] Future Scheduled Test Serum or plasma sodium [facility] measurement [facility] (moles/volume) [code = 2951-2] Future Scheduled Test Serum or plasma CHR ISTUS - [facility] potassium measurement [facility] (moles/volume) [code = 2823-3] Future Scheduled Test Serum or plasma CHR ISTUS - [facility] chloride measurement [facility] (moles/volume) [code = 2075-0] Future Scheduled Test Serum or plasma total [facility] carbon dioxide [facility] measurement (moles/volume) [code = 2027-9] Future Scheduled Test Serum or plasma anion [facility] - [facility] gap determination [facility] (moles/volume) [code = 55077-3] Future Scheduled Test Serum or plasma urea [facility] nitrogen measurement [facility] (mass/volume) [code = 3094-0] Future Scheduled Test Serum or plasma [facility]R I[facility]US - [facility] creatinine measurement [facility] (mass/volume) [code = 2160-0] Future Scheduled Test GFR estimate MDRD [code [facility] - T[facility] = 14247-6] [facility] Future Scheduled Test Serum or plasma urea [facility] nitrogen/creatinine [facility] mass ratio [code = 3097-3] Future Scheduled Test Serum or plasma glucose [facility] (mass/volume) [code = 2345-7] Future Scheduled Test Osmolality of Serum or [facility] - [facility] Plasma by calculation [facility] [code = 82153-6] Future Scheduled Test Serum or plasma calcium [facility] (mass/volume) [code = 21443-8] Instructions OTHER [facility] Encounters Start End Encounter Admission Attending Care Care Encounter Source Date/Time Date/Time Type Type Clinicians Facility Department ID 2019-11-02 2019-11-04 Discharged MAHNAZ Tift [id number] CHRISTU 17:41:00 13:48:00 Inpatient [facility] [address] 2019-10-14 2019-10-14 Inpatient E [facility] [id number] MHTW 03:16:00 00:09:00 Results Test Description Test Time Test Comments Results Result Comments Source Automated blood leukocyte count (number/volume) 2019-11-04 0 5:20:00 Test Item Value Reference Range Interpretation Comme nts White Blood Count (test code = 6690-2) 14.4 10*3/uL [facility] erythrocytes automated count (number/volume)2019-11-04 05:20:00 Test Item Value Reference Range Interpretation Comments Red Blood Count (test code = 2.79 10*6/uL 789-8) [facility] hemoglobin measurement (mass/volume) 2019-11-04 05:20:00 Test Item Value Reference Range Interpretation Comments Hemoglobin (test code = 718-7) 8.3 g/dL [facility] hematocrit (volume fraction) 2019-11-04 05:20:00 Test Item Value Reference Range Interpretation Comments Hematocrit (test code = 4544-3) 25.3 % [facility] mean corpuscular volume (MCV) [id number] 05:20:00 Test Item Value Reference Range Interpretation Comments Mean Corpuscular Volume (test code = 90.7 fL 787-2) [facility] mean corpuscular hemoglobin (mass per erythrocyte)2019-11-04 05:20:00 Test Item Value Reference Range Interpretation Comments Mean Corpuscular Hemoglobin (test 29.7 pg code = 785-6) [facility] erythrocyte mean corpuscular hemoglobin concentration measurement (mass/[id number] 05:20:00 Test Item Value Reference Range Interpretation Comments Mean Corpuscular Hemoglobin Concent 32.8 g/dL (test code = 786-4) [facility] width [id number] 05:20:00 Test Item Value Reference Range Interpretation Comments Red Cell Distribution Width (test code 16.3 % = 788-0) [facility] blood platelet count (count/volume) 2019-11-04 05:20:00 Test Item Value Reference Range Interpretation Comments Platelet Count (test code = 340 10*3/uL 777-3) [facility] blood platelet mean volume [id number] 05:20:00 Test Item Value Reference Range Interpretation Comments Mean Platelet Volume (test code = 10.1 fL 46345-4) [facility] comment [id number] 05:20:00 Test Item Value Reference Range Interpretation Comments Manual Differential (test code = ----- 8265-1) [facility] blood segmented neutrophils/100 [id number] 05:20:00 Test Item Value Reference Range Interpretation Comments Neutrophils % (Manual) (test code = 87 % 769-0) [facility] blood lymphocytes/100 leukocytes 2019-11-04 05:20:00 Test Item Value Reference Range Interpretation Comments Lymphocytes % (Manual) (test code = 9 % 737-7) [facility] blood monocytes/100 leukocytes 2019-11-04 05:20:00 Test Item Value Reference Range Interpretation Comments Monocytes % (Manual) (test code = 2 % 744-3) [facility] blood eosinophil count as percentage of total [id number] 05:20:00 Test Item Value Reference Range Interpretation Comments Eosinophils % (Manual) (test code = 2 % 714-6) [facility] platelet detection by light microscopy 2019-11-04 05:20:00 Test Item Value Reference Range Interpretation Comments Platelet Estimate (test code = Adequate 9317-9) [facility] erythrocyte morphology finding [id number] 05:20:00 Test Item Value Reference Range Interpretation Comments Red Blood Cell Morphology (test code = Normal 6742-1) [facility] or plasma sodium measurement (moles/volume)2019-11-04 05:20:00 Test Item Value Reference Range Interpretation Comments Sodium Level (test code = 2951-2) 136 mmol/L [facility] or plasma potassium measurement (moles/volume)2019-11-04 05:20:00 Test Item Value Reference Range Interpretation Comments Potassium Level (test code = 3.1 mmol/L 2823-3) [facility] or plasma chloride measurement (moles/volume)2019-11-04 05:20:00 Test Item Value Reference Range Interpretation Comments Chloride Level (test code = 104 mmol/L 5-0) [facility] or plasma total carbon dioxide measurement (moles/volume)2019-11-04 05:20:00 Test Item Value Reference Range Interpretation Comments Carbon Dioxide Level (test code = 23 mmol/L 8-9) [facility] or plasma anion gap determination (moles/volume)2019-11-04 05:20:00 Test Item Value Reference Range Interpretation Comments Anion Gap (test code = 42134-8) 12 [facility] or plasma urea nitrogen measurement (mass/volume)2019-11-04 05:20:00 Test Item Value Reference Range Interpretation Comments Blood Urea Nitrogen (test code = 5 mg/dL 3094-0) [facility] or plasma creatinine measurement (mass/volume)2019-11-04 05:20:00 Test Item Value Reference Range Interpretation Comments Creatinine (test code = 2160-0) 0.6 mg/dL [facility] [id number] 05:20:00 Test Item Value Reference Range Interpretation Comments Estimat Glomerular Filtration Rate 139 (test code = 05932-3) [facility] urea nitrogen/creatinine mass [id number] 05:20:00 Test Item Value Reference Range Interpretation Comments BUN/Creatinine Ratio (test code = 8 3097-3) [facility] glucose measurement (mass/volume)2019-11-04 05:20:00 Test Item Value Reference Range Interpretation Comments Glucose Level (test code = 2345-7) 112 mg/dL [facility] HospitalOsmolality [facility] Serum or Plasma by calculation 2019-11-04 05:20:00 Test Item Value Reference Range Interpretation Comments Calculated Osmolality (test code 270 mosm/kg = 37633-3) [facility] or plasma calcium measurement (mass/volume)2019-11-04 05:20:00 Test Item Value Reference Range Interpretation Comments Calcium Level (test code = 39063-3) 8.1 mg/dL [facility] or plasma phosphate measurement (mass/volume)2019-11-03 04:40:00 Test Item Value Reference Range Interpretation Comments Phosphorus Level (test code = 3.0 mg/dL 2777-1) [facility] or plasma magnesium measurement (mass/volume)2019-11-03 04:40:00 Test Item Value Reference Range Interpretation Comments Magnesium Level (test code = 1.91 mg/dL 81362-3) [facility] total bilirubin measurement (mass/volume)2019-11-03 04:40:00 Test Item Value Reference Range Interpretation Comments Total Bilirubin (test code = 0.9 mg/dL 1975-2) [facility] or plasma aspartate aminotransferase measurement (enzymatic activity/volume)2019-11-03 04:40:00 Test Item Value Reference Range Interpretation Comments Aspartate Amino Transf (AST/SGOT) 26 U/L (test code = 1920-8) [facility] or plasma alanine aminotransferase measurement (enzymatic activity/volume)2019-11-03 04:40:00 Test Item Value Reference Range Interpretation Comments Alanine Aminotransferase (ALT/SGPT) 13 U/L (test code = 1742-6) [facility] or plasma protein measurement (mass/volume)2019-11-03 04:40:00 Test Item Value Reference Range Interpretation Comments Total Protein (test code = 2885-2) 6.1 g/dL [facility] or plasma albumin measurement (mass/volume)2019-11-03 04:40:00 Test Item Value Reference Range Interpretation Comments Albumin (test code = 1751-7) 3.3 g/dL [facility] globulin measurement by calculation (mass/volume)2019-11-03 04:40:00 Test Item Value Reference Range Interpretation Comments Globulin (test code = 34549-2) 2.8 g/dL [facility] or plasma albumin/globulin mass ratio 2019-11-03 04:40:00 Test Item Value Reference Range Interpretation Comments Albumin/Globulin Ratio (test code = 1.2 1759-0) [facility] or plasma alkaline phosphatase measurement (enzymatic activity/volume)2019-11-03 04:40:00 Test Item Value Reference Range Interpretation Comments Alkaline Phosphatase (test code = 71 U/L 6768-6) [facility] blood [id number] 18:05:00 Test Item Value Reference Range Interpretation Comments Blood Culture (test code No growth in 24 hrs. = 600-7) [facility] blood lactic acid measurement (moles/volume)2019-11-02 18:04:00 Test Item Value Reference Range Interpretation Comments Bedside Lactic Acid Venous (test 1.18 mmol/L code = 2519-7) [facility] whole blood sodium measurement (moles/volume)2019-11-02 16:35:00 Test Item Value Reference Range Interpretation Comments Bedside Sodium (test code = 134 mmol/L 73085-0) [facility] whole blood potassium measurement (moles/volume)2019-11-02 16:35:00 Test Item Value Reference Range Interpretation Comments Bedside Potassium (test code = 2.9 mmol/L 41103-0) [facility] whole blood chloride measurement (moles/volume)2019-11-02 16:35:00 Test Item Value Reference Range Interpretation Comments Bedside Chloride (test code = 101 mmol/L 80314-0) [facility] blood total carbon dioxide measurement (moles/volume)2019-11-02 16:35:00 Test Item Value Reference Range Interpretation Comments Bedside Total CO2 (test code = 22.0 mmol/L 2026-11) [facility] whole blood urea nitrogen (BUN) measurement (mass/volume)2019-11-02 16:35:00 Test Item Value Reference Range Interpretation Comments Bedside Blood Urea Nitrogen (test 5 mg/dL code = 04406-8) [facility] measurement (mass/volume) 2019-11-02 16:35:00 Test Item Value Reference Range Interpretation Comments Bedside Creatinine (test code = 0.7 mg/dL 36126-0) [facility] whole blood glucose measurement (mass/volume)2019-11-02 16:35:00 Test Item Value Reference Range Interpretation Comments Bedside Glucose (test code = 105 mg/dL 38979-4) [facility] ionized calcium measurement (moles/volume)2019-11-02 16:35:00 Test Item Value Reference Range Interpretation Comments Bedside Whole Blood Ionized 1.04 mmol/L Calcium (test code = 1994-3) [facility] anion [id number] 16:35:00 Test Item Value Reference Range Interpretation Comments Bedside Anion Gap (test code = 97846-2) 16 [facility] estimate [id number] 16:35:00 Test Item Value Reference Range Interpretation Comments Estimat Glomerular Filtration Rate 117 (test code = 11443-5) [facility] blood hemoglobin measurement (mass/volume)2019-11-02 16:35:00 Test Item Value Reference Range Interpretation Comments Bedside Hemoglobin (test code = 10.2 g/dL 00414-5) [facility] blood hematocrit (volume fraction) 2019-11-02 16:35:00 Test Item Value Reference Range Interpretation Comments Bedside Hematocrit (test code = 30.0 % 92117-0) [facility] HospitalUrinalysis specimen collection method 2019-11-02 16:30:00 Test Item Value Reference Range Interpretation Comments Urine Source (test code = 25125-6) URINE [facility] HospitalColor of Urine by [id number] 16:30:00 Test Item Value Reference Range Interpretation Comments Urine Color (test code = 06195-2) Lt Yellow [facility] clarity [id number] 16:30:00 Test Item Value Reference Range Interpretation Comments Urine Appearance (test code = 02129-8) Clear [facility] pH measurement by automated test strip 2019-11-02 16:30:00 Test Item Value Reference Range Interpretation Comments Urine pH (test code = 66639-1) 7.0 [facility] by Automated test [id number] 16:30:00 Test Item Value Reference Range Interpretation Comments Urine Specific [place] (test code = 1.005 60489-9) [facility] protein measurement by automated test strip (mass/volume)2019-11-02 16:30:00 Test Item Value Reference Range Interpretation Comments Urine Protein (test code = Negative mg/dL 07657-6) [facility] glucose measurement by automated test strip (mass/volume)2019-11-02 16:30:00 Test Item Value Reference Range Interpretation Comments Urine Glucose (UA) (test code Negative mg/dL = 15978-7) [facility] ketones measurement by automated test strip (mass/volume)2019-11-02 16:30:00 Test Item Value Reference Range Interpretation Comments Urine Ketones (test code = Negative mg/dL 07982-8) [facility] erythrocytes count by automated test strip (number/volume)2019-11-02 16:30:00 Test Item Value Reference Range Interpretation Comments Urine Occult Blood (test code = Negative 21938-5) [facility] nitrite detection by automated test [id number] 16:30:00 Test Item Value Reference Range Interpretation Comments Urine Nitrite (test code = 87733-1) Negative [facility] total bilirubin measurement by automated test strip (mass/volume)2019-11-02 16:30:00 Test Item Value Reference Range Interpretation Comments Urine Bilirubin (test code = Negative mg/dL 18111-6) [facility] urobilinogen measurement by automated test strip (mass/volume)2019-11-02 16:30:00 Test Item Value Reference Range Interpretation Comments Urine Urobilinogen (test code Negative mg/dL = 93624-2) [facility] leukocytes count by automated test strip (number/volume)2019-11-02 16:30:00 Test Item Value Reference Range Interpretation Comments Urine Leukocyte Esterase Negative {Freddy}/uL (test code = 00783-3) [facility] HospitalMicroscopic examination of [id number] 16:30:00 Test Item Value Reference Range Interpretation Comments Microscopic Urinalysis (T) (test code Not Ind = 00155-8) [facility] [id number] 16:30:00 Test Item Value Reference Range Interpretation Comments Urinalysis Comment (test code = 8262-8) * [facility]
[2020-05-27] MEDS ORDERED: LIDOCAINE 1% MPF 5 ML VIAL ONE (08:40)
--- NOTE | 2020-05-27 09:25 | ER ---
Nurse's Notes [facility] Name: Roxane Chávez Age: 79 yrs Sex: Male : 1940 Arrival Date: 05/27/2020 Time: 08:10 Bed 17 Private MD: Laly Dunlap F Diagnosis: Laceration without foreign body of left little finger without damage to nail Presentation: 05/27 08:26 Chief complaint: Patient states: smash injury to L fifth finger that occurred 1 hour ss ago with a floor valeriy. Coronavirus screen: Proceed with normal triage. Patient denies a cough. Patient denies shortness of breath or difficulty breathing. Patient denies measured and/or subjective temperature greater than 100.4F prior to today's visit. Patient denies travel on a cruise ship or to a country the [facility] currently lists as an affected area. Patient denies contact with known and/or suspected case of COVID-19. Ebola Screen: Patient denies exposure to infectious person. Patient denies travel to an Ebola-affected area in the 21 days before illness onset. Initial Sepsis Screen: Does the patient meet any 2 criteria? No. Patient's initial sepsis screen is negative. Does the patient have a suspected source of infection? No. Patient's initial sepsis screen is negative. Risk Assessment: Do you want to hurt yourself or someone else? Patient reports no desire to harm self or others. Onset of symptoms was May 27, 2020. 08:26 Method Of Arrival: Ambulatory ss 08:26 Acuity: TITO 4 ss Historical: - Allergies: 08:28 Ciprofloxacin; ss - PMHx: 08:28 GERD; Hypertension; Prostate Cancer; ss - PSHx: 08:28 None; ss - Immunization history:: Adult Immunizations up to date. - Social history:: Smoking status: Patient denies any tobacco usage or history of. Screenin:25 Abuse screen: Denies threats or abuse. Denies injuries from another. Nutritional sv screening: No deficits noted. Tuberculosis screening: No symptoms or risk factors identified. Fall Risk None identified. Assessment: 08:48 General: Appears in no apparent distress. comfortable, well developed, Behavior is sv calm, cooperative, appropriate for age. Pain: Complains of pain in palmar aspect of middle phalanx of left little finger Pain currently is 5 out of 10 on a pain scale. Pain began 1 hour ago. Neuro: Level of Consciousness is awake, alert, obeys commands, Oriented to person, place, time, situation, Gait is steady. Respiratory: Respiratory effort is even, unlabored, Respiratory pattern is regular, symmetrical. Derm: Skin is normal. Injury Description: Laceration sustained to palmar aspect of middle phalanx of left little finger is 0.5 to 2.5 cm long, not bleeding, was sustained 30-60 minutes ago. 10:03 Reassessment: Patient appears in no apparent distress at this time. Patient and/or sv family updated on plan of care and expected duration. Pain level reassessed. Patient is alert, oriented x 3, equal unlabored respirations, skin warm/dry/pink. Patient denies pain at this time. Patient states feeling better. Patient states symptoms have improved. Vital Signs: 08:26 BP 157 / 88; Pulse 80; Resp 16; Temp 97.8(TE); Pulse Ox 96% on R/A; Weight 81.65 kg; ss Height 5 ft. 11 in. (180.34 cm); Pain 5/10; 08:26 Body Mass Index 25.10 (81.65 kg, 180.34 cm) ED Course: 08:10 Patient arrived in ED. ag5 08:11 Laly Dunlap MD is Private Physician. ag5 08:16 Michelle Falk, GABRIELLE is Primary Nurse. sv 08:16 Arm band placed on. sv 08:16 Patient has correct armband on for positive identification. Bed in low position. Call light in reach. Door closed. Head of bed elevated. 08:24 Ruby Koch [facility]-C [facility]. kb 08:24 Irving Arevalo MD is Attending Physician. kb 08:25 Nurse Practitioner and/or Physician Orchestra Musician to see patient. sv 08:27 Triage completed. ss 08:38 Assist provider with laceration repair Set up tray. sv 08:50 Assist provider with laceration repair on palmar aspect of middle phalanx of left sv little finger that was 2.5 cm. or less using sutures. Performed by Ruby GARCÍA Dressed with band aid, Neosporin, Patient tolerated well. Patient did not have IV access during this emergency room visit. Administered Medications: 08:48 Drug: Bupivacaine (0.5 %) 1 vials {Note: given to Ruby LAYUP WORKER for procedure.} Volume: 10 sv ml; Route: Infiltration; 08:49 Drug: Lidocaine (1 %) 1 vials {Note: given to Ruby LAYUP WORKER for procedure.} Volume: 5 ml; sv Route: Infiltration; Outcome: 09:25 Discharge ordered by . kb 10:03 Patient left the ED. sv 10:03 Discharged to home ambulatory. sv 10:03 Condition: stable 10:03 Discharge instructions given to patient, Instructed on discharge instructions, follow up and referral plans. wound care, Demonstrated understanding of instructions, follow-up care, wound care. Signatures: Ruby Koch, SKID WORKER-C SKID WORKER-Michelle Rust RN RN Corrine Acuña RN RN Celio Grace ag5
--- NOTE | 2020-05-27 09:26 | EDPHYS ---
Physician Documentation [facility] Name: Roxane Chávez Age: 79 yrs Sex: Male : 1940 Arrival Date: 05/27/2020 Time: 08:10 Bed 17 Private MD: Laly Dunlap F ED Physician Irving Arevalo HPI: 05/27 08:30 This 79 yrs old Male presents to ER via Ambulatory with complaints of Finger kb Laceration. 08:30 The patient has a laceration related to: working, occurred outdoors, and there are no kb complicating factors. The injury was accidental. The laceration(s) is(are) located on the palmar aspect of middle phalanx of left little finger. Onset: The symptoms/episode began/occurred just prior to arrival. Associated signs and symptoms: The patient has no apparent associated signs or symptoms. The patient has not experienced similar symptoms in the past. The patient has not recently seen a physician. Pt reports he smashed his finger between two posts causing laceration. Historical: - Allergies: 08:28 Ciprofloxacin; ss - PMHx: 08:28 GERD; Hypertension; Prostate Cancer; ss - PSHx: 08:28 None; ss - Immunization history:: Adult Immunizations up to date. - Social history:: Smoking status: Patient denies any tobacco usage or history of. ROS: 08:30 Constitutional: Negative for fever, chills, and weight loss, Neck: Negative for injury, kb pain, and swelling, Cardiovascular: Negative for chest pain, palpitations, and edema, Respiratory: Negative for shortness of breath, cough, wheezing, and pleuritic chest pain, Abdomen/GI: Negative for abdominal pain, nausea, vomiting, diarrhea, and constipation, Back: Negative for injury and pain, MS/Extremity: Negative for injury and deformity, Neuro: Negative for headache, weakness, numbness, tingling, and seizure. 08:30 Skin: Positive for laceration(s), of the palmar aspect of middle phalanx of left little finger. Exam: 08:30 Constitutional: This is a well developed, well nourished patient who is awake, alert, kb and in no acute distress. Head/Face: Normocephalic, atraumatic. Chest/axilla: Normal chest wall appearance and motion. Nontender with no deformity. No lesions are appreciated. Cardiovascular: Regular rate and rhythm with a normal S1 and S2. No gallops, murmurs, or rubs. Normal PMI, no JVD. No pulse deficits. Respiratory: Lungs have equal breath sounds bilaterally, clear to auscultation and percussion. No rales, rhonchi or wheezes noted. No increased work of breathing, no retractions or nasal flaring. Abdomen/GI: Soft, non-tender, with normal bowel sounds. No distension or tympany. No guarding or rebound. No evidence of tenderness throughout. MS/ Extremity: Pulses equal, no cyanosis. Neurovascular intact. Full, normal range of motion. Neuro: Awake and alert, GCS 15, oriented to person, place, time, and situation. Cranial nerves II-XII grossly intact. Motor strength 5/5 in all extremities. Sensory grossly intact. Cerebellar exam normal. Normal gait. 08:30 Skin: injury, laceration(s), the wound is approximately 2 cm(s), of the palmar aspect of middle phalanx of left little finger, that can be described as clean, no foreign body, irregular, without bleeding. Vital Signs: 08:26 BP 157 / 88; Pulse 80; Resp 16; Temp 97.8(TE); Pulse Ox 96% on R/A; Weight 81.65 kg; ss Height 5 ft. 11 in. (180.34 cm); Pain 5/10; 08:26 Body Mass Index 25.10 (81.65 kg, 180.34 cm) Laceration: 09:22 Wound Repair of 2cm ( 0.8in ) subcutaneous laceration to palmar aspect of middle kb phalanx of left little finger. Irregularly shaped.. Distal neuro/vascular/tendon intact. Anesthesia: Digital block administered with 3 mls of Lido/Marcaine. Wound prep: Extensive cleansing with betadine by me, Wound irrigation with saline by me. Skin closed with 7 5-0 Prolene using simple sutures and sterile technique. Dressed with Neosporin, bandaid. Patient tolerated well. MDM: 08:24 Patient medically screened. kb 08:29 Data reviewed: vital signs, nurses notes. Data interpreted: Pulse oximetry: on room air kb is 96 %. Interpretation: normal. 09:22 Counseling: I had a detailed discussion with the patient and/or guardian regarding: the kb historical points, exam findings, and any diagnostic results supporting the discharge/admit diagnosis, the need for outpatient follow up, a family practitioner, to return to the emergency department if symptoms worsen or persist or if there are any questions or concerns that arise at home. 05/27 08:27 Order name: Prolene, Sutures; Complete Time: 09:44 kb 05/27 08:27 Order name: Dressing - Wound; Complete Time: 09:44 kb 05/27 08:27 Order name: Gloves, Sterile; Complete Time: 08:37 kb 05/27 08:27 Order name: Setup Suture Tray; Complete Time: 08:37 kb Administered Medications: 08:48 Drug: Bupivacaine (0.5 %) 1 vials {Note: given to Ruby SUSTAINMENT LOGISTICS ANALYST for procedure.} Volume: 10 sv ml; Route: Infiltration; 08:49 Drug: Lidocaine (1 %) 1 vials {Note: given to Ruby SUSTAINMENT LOGISTICS ANALYST for procedure.} Volume: 5 ml; sv Route: Infiltration; Disposition: 15:34 Co-signature as Attending Physician, Irving Arevalo MD I agree with the assessment and kdr plan of care. Disposition: 05/27/20 09:25 Discharged to Home. Impression: Laceration without foreign body of left little finger without damage to nail. - Condition is Stable. - Discharge Instructions: Laceration Care, Adult, [id number]. - Medication Reconciliation Form, Thank You Letter, Antibiotic Education, Prescription Opioid Use form. - Follow up: Emergency Department; When: As needed; Reason: Worsening of condition. Follow up: Private Physician; When: 2 - 3 days; Reason: Recheck today's complaints, Continuance of care, Re-evaluation by your physician. - Notes: Keep clean and dry Keep covered when working and open to air at home Watch for signs of infection. Wash with soap and water throughout the day Have sutures removed in 10-14 days Signatures: Ruby Koch FNP-C FNP-Ckb Verde, Stephanie, RN RN sv Rittger, Kevin, MD MD kdr Smirch, Shelby, RN RN ss Corrections: (The following items were deleted from the chart) 10:03 09:25 05/27/2020 09:25 Discharged to Home. Impression: Laceration without foreign body sv of left little finger without damage to nail. Condition is Stable. Forms are Medication Reconciliation Form, Thank You Letter, Antibiotic Education, Prescription Opioid Use. Follow up: Emergency Department; When: As needed; Reason: Worsening of condition. Follow up: Private Physician; When: 2 - 3 days; Reason: Recheck today's complaints, Continuance of care, Re-evaluation by your physician. kb
[2020-05-27 10:08] VITALS: BP 157/88; TEMP 97.8; O2SAT 96
== END 2020-05-27 10:03 | disposition home or self-care (01) ==
LOC: ER 08:08
PROC: 0JQK0ZZ Repair Left Hand Subcutaneous Tissue and Fascia, Open Approach (ICD-10-PCS; principal; 2020-05-27)
DX: S61.217A Laceration without foreign body of left little finger without damage to nail, initial encounter (principal); W22.8XXA Striking against or struck by other objects, initial encounter; Y93.89 Activity, other specified; Y92.9 Unspecified place or not applicable
CPT/HCPCS: 99283

== ENCOUNTER 2020-09-03 07:54 | Emergency (ER) | payer OTHER ==
--- OUTSIDE RECORDS SUMMARY | 2020-09-03 07:57 | XMS REPORT | Continuity of Care Document ---
:1940 Author Organization [facility] t Address [address] [place] [address] Care Team Providers Name Role Phone FOUND, NOT Primary Care Physician Unavailable Doctor Unassigned, Name Attending Clinician Unavailable Advance Directives Directive Decision Effective Date Termination Date Comments Sour ce Yes N/A [facility] - Serjio [facility] Problems Condition Condition Condition Status Onset Resolution Last Treating Co mments Source Name Details Category Date Date Treatment Clinician Date Problem Condition [facility] Allergies, Adverse Reactions, Alerts This patient has no known allergies or adverse reactions. Social History Social Habit Start Date Stop Date Quantity Comments Source Sex Assigned At [birth year] Male [facility] 00:00:00 00:00:00 [facility] Smoking Status Start Date Stop Date Source Unknown if ever smoked [facility] Medications Ordered Filled Start Stop Current Ordering Indication Dosage Frequency Signature Comments Components Source Medication Medication Date Date Medication? Clinician (SIG) Name Name Pantoprazol No 40mg CHRISTU e S - (Protonix) [facility] 40 Mg [facility] Sucralfate No 1 [facility]RISTU (Carafate) S - 1 Gm TAB [facility] Vital Signs Vital Name Observation Time Observation Value Comments Source Body Temperature 2019-11-04 12:00:00 99.5 [degF] [facility] 2019-11-04 12:00:00 94 /min [facility] Respiratory rate 2019-11-04 12:00:00 20 /min [facility] al BP Systolic 2019-11-04 12:00:00 158 mm[Hg] [facility] BP Diastolic 2019-11-04 12:00:00 77 mm[Hg] [facility] al Heart Rate 2019-11-02 23:46:00 75 /min [facility] Respiratory rate 2019-11-02 23:46:00 20 /min CHRI [facility] al BP Systolic 2019-11-02 23:46:00 145 mm[Hg] [facility] BP Diastolic 2019-11-02 23:46:00 63 mm[Hg] [facility] Weight 2019-11-02 16:12:00 186 [lb_av] [facility] BMI (Body Mass Index) 2019-11-02 16:12:00 25.9 kg/m2 [facility] Procedures Procedure Date / Time Performed Performing Clinician [facility] X-ray of chest, two 2019-11-04 00:00:00 [facility] Computed tomography of 2019-11-03 00:00:00 LEE Fleming head or brain without [facility] ospital contrast CT angiography of neck 2019-11-03 00:00:00 [facility] X-ray of chest, single 2019-11-02 00:00:00 [facility] Plan of Care Planned Activity Planned Date Details Comments Source Future Scheduled Test Bacterial blood culture [facility] [code = 600-7] [facility] Future Scheduled Test [facility]ated [facility] leukocyte count [facility] (number/volume) [code = 6690-2] Future Scheduled Test [facility] (number/volume) [code = 789-8] Future Scheduled Test Blood hemoglobin [facility] Lonnie measurement [facility] al (mass/volume) [code = 718-7] Future Scheduled Test Automated blood [facility] - [facility] hematocrit (volume [facility] fraction) [code = 4544-3] Future Scheduled Test Automated erythrocyte [facility] mean corpuscular volume [facility] ([facility]) measurement [code = 787-2] Future Scheduled Test Automated erythrocyte [facility] mean corpuscular [facility] hemoglobin (mass per erythrocyte) [code = 785-6] Future Scheduled Test Automated erythrocyte [facility] mean corpuscular [facility] spital hemoglobin concentration measurement (mass/vol [code = 786-4] Future Scheduled Test Automated erythrocyte [facility] distribution width [facility] ratio [code = 788-0] Future Scheduled Test Automated blood [facility] platelet count [facility] (count/volume) [code = 777-3] Future Scheduled Test Automated blood [facility] - [facility] platelet mean volume [facility] measurement [code = 33757-3] Future Scheduled Test Service comment 04 [facility] [code = 8265-1] [facility] Future Scheduled Test Serum or plasma sodium [facility] measurement [facility] (moles/volume) [code = 2951-2] Future Scheduled Test Serum or plasma [facility] - [facility] potassium measurement [facility] (moles/volume) [code = 2823-3] Future Scheduled Test Serum or plasma [facility] - [facility] chloride measurement [facility] (moles/volume) [code = 2075-0] Future Scheduled Test Serum or plasma total [facility] carbon dioxide [facility] measurement (moles/volume) [code = 2027-9] Future Scheduled Test Serum or plasma anion [facility] gap determination [facility] ospital (moles/volume) [code = 37475-4] Future Scheduled Test Serum or plasma urea [facility] nitrogen measurement [facility] (mass/volume) [code = 3094-0] Future Scheduled Test Serum or plasma [facility] - [facility] creatinine measurement [facility] (mass/volume) [code = 2160-0] Future Scheduled Test GFR estimate MDRD [code [facility] - [facility] = 58601-1] [facility] Future Scheduled Test Serum or plasma urea [facility] nitrogen/creatinine [facility] mass ratio [code = 3097-3] Future Scheduled Test Serum or plasma glucose [facility] (mass/volume) [code = 2345-7] Future Scheduled Test Osmolality of Serum or [facility] Plasma by calculation [facility] [code = 13646-1] Future Scheduled Test Serum or plasma calcium [facility] (mass/volume) [code = 48525-1] Instructions OTHER [facility] - sp [facility] Encounters Start End Encounter Admission Attending Care Care Encounter Source Date/Time Date/Time Type Type Clinicians Facility Department ID 2020-08-19 2020-08-19 Orders Doctor CYRUS [id number] 00:00:00 00:00:00 Only Unassigned, JANES [id number] [place] [facility] [id number] 2019-11-02 2019-11-04 Discharged [facility] [place] [id number] CHRISTU 17:41:00 13:48:[address] Hospita l 2019-10-14 2019-10-14 Inpatient E [id number] 03:16:00 00:09:00 Results Test Description Test Time Test Comments Results Result Comments Source Automated blood leukocyte count (number/volume) 2019-11-04 0 5:20:00 Test Item Value Reference Range Interpretation Comme nts White Blood Count (test code = 6690-2) 14.4 10*3/uL [facility] erythrocytes automated count (number/volume)2019-11-04 05:20:00 Test Item Value Reference Range Interpretation Comments Red Blood Count (test code = 2.79 10*6/uL 789-8) [facility] hemoglobin measurement (mass/volume) 2019-11-04 05:20:00 Test Item Value Reference Range Interpretation Comments Hemoglobin (test code = 718-7) 8.3 g/dL [facility] hematocrit (volume fraction) 2019-11-04 05:20:00 Test Item Value Reference Range Interpretation Comments Hematocrit (test code = 4544-3) 25.3 % [facility] mean corpuscular volume (MCV) [id number] 05:20:00 Test Item Value Reference Range Interpretation Comments Mean Corpuscular Volume (test code = 90.7 fL 787-2) [facility] mean corpuscular hemoglobin (mass per erythrocyte)2019-11-04 05:20:00 Test Item Value Reference Range Interpretation Comments Mean Corpuscular Hemoglobin (test 29.7 pg code = 785-6) [facility] mean corpuscular hemoglobin concentration measurement (mass/[id number] 05:20:00 Test Item Value Reference Range Interpretation Comments Mean Corpuscular Hemoglobin Concent 32.8 g/dL (test code = 786-4) [facility] [id number] 05:20:00 Test Item Value Reference Range Interpretation Comments Red Cell Distribution Width (test code 16.3 % = 788-0) [facility] platelet count (count/volume) 2019-11-04 05:20:00 Test Item Value Reference Range Interpretation Comments Platelet Count (test code = 340 10*3/uL 777-3) [facility] blood platelet mean volume [id number] 05:20:00 Test Item Value Reference Range Interpretation Comments Mean Platelet Volume (test code = 10.1 fL 95296-9) [facility] comment 05:20:00 Test Item Value Reference Range Interpretation Comments Manual Differential (test code = ----- 8265-1) [facility] blood segmented neutrophils/100 [id number] 05:20:00 Test Item Value Reference Range Interpretation Comments Neutrophils % (Manual) (test code = 87 % 769-0) [facility] blood lymphocytes/100 leukocytes 2019-11-04 05:20:00 Test Item Value Reference Range Interpretation Comments Lymphocytes % (Manual) (test code = 9 % 737-7) [facility] blood monocytes/100 leukocytes 2019-11-04 05:20:00 Test Item Value Reference Range Interpretation Comments Monocytes % (Manual) (test code = 2 % 744-3) [facility] blood eosinophil count as percentage of total [id number] 05:20:00 Test Item Value Reference Range Interpretation Comments Eosinophils % (Manual) (test code = 2 % 714-6) [facility] platelet detection by light microscopy 2019-11-04 05:20:00 Test Item Value Reference Range Interpretation Comments Platelet Estimate (test code = Adequate 9317-9) [facility] erythrocyte morphology finding [id number] 05:20:00 Test Item Value Reference Range Interpretation Comments Red Blood Cell Morphology (test code = Normal 6742-1) [facility] or plasma sodium measurement (moles/volume)2019-11-04 05:20:00 Test Item Value Reference Range Interpretation Comments Sodium Level (test code = 2951-2) 136 mmol/L [facility] or plasma potassium measurement (moles/volume)2019-11-04 05:20:00 Test Item Value Reference Range Interpretation Comments Potassium Level (test code = 3.1 mmol/L 2823-3) [facility] or plasma chloride measurement (moles/volume)2019-11-04 05:20:00 Test Item Value Reference Range Interpretation Comments Chloride Level (test code = 104 mmol/L 5-0) [facility] or plasma total carbon dioxide measurement (moles/volume)2019-11-04 05:20:00 Test Item Value Reference Range Interpretation Comments Carbon Dioxide Level (test code = 23 mmol/L 8-9) [facility] or plasma anion gap determination (moles/volume)2019-11-04 05:20:00 Test Item Value Reference Range Interpretation Comments Anion Gap (test code = 80961-6) 12 [facility] or plasma urea nitrogen measurement (mass/volume)2019-11-04 05:20:00 Test Item Value Reference Range Interpretation Comments Blood Urea Nitrogen (test code = 5 mg/dL 3094-0) [facility] or plasma creatinine measurement (mass/volume)2019-11-04 05:20:00 Test Item Value Reference Range Interpretation Comments Creatinine (test code = 2160-0) 0.6 mg/dL [facility] [id number] 05:20:00 Test Item Value Reference Range Interpretation Comments Estimat Glomerular Filtration Rate 139 (test code = 01373-1) [facility] or plasma urea nitrogen/creatinine mass [id number] 05:20:00 Test Item Value Reference Range Interpretation Comments BUN/Creatinine Ratio (test code = 8 3097-3) [facility] or plasma glucose measurement (mass/volume)2019-11-04 05:20:00 Test Item Value Reference Range Interpretation Comments Glucose Level (test code = 2345-7) 112 mg/dL [facility] Hospital[facility] Serum or Plasma by calculation 2019-11-04 05:20:00 Test Item Value Reference Range Interpretation Comments Calculated Osmolality (test code 270 mosm/kg = 54216-0) [facility] or plasma calcium measurement (mass/volume)2019-11-04 05:20:00 Test Item Value Reference Range Interpretation Comments Calcium Level (test code = 48298-3) 8.1 mg/dL [facility] or plasma phosphate measurement (mass/volume)2019-11-03 04:40:00 Test Item Value Reference Range Interpretation Comments Phosphorus Level (test code = 3.0 mg/dL 2777-1) [facility] or plasma magnesium measurement (mass/volume)2019-11-03 04:40:00 Test Item Value Reference Range Interpretation Comments Magnesium Level (test code = 1.91 mg/dL 12885-7) [facility] or plasma total bilirubin measurement (mass/volume)2019-11-03 04:40:00 Test Item Value Reference Range Interpretation Comments Total Bilirubin (test code = 0.9 mg/dL 1975-2) [facility] or plasma aspartate aminotransferase measurement (enzymatic activity/volume)2019-11-03 04:40:00 Test Item Value Reference Range Interpretation Comments Aspartate Amino Transf (AST/SGOT) 26 U/L (test code = 1920-8) [facility] or plasma alanine aminotransferase measurement (enzymatic activity/volume)2019-11-03 04:40:00 Test Item Value Reference Range Interpretation Comments Alanine Aminotransferase (ALT/SGPT) 13 U/L (test code = 1742-6) [facility] or plasma protein measurement (mass/volume)2019-11-03 04:40:00 Test Item Value Reference Range Interpretation Comments Total Protein (test code = 2885-2) 6.1 g/dL [facility] or plasma albumin measurement (mass/volume)2019-11-03 04:40:00 Test Item Value Reference Range Interpretation Comments Albumin (test code = 1751-7) 3.3 g/dL [facility] globulin measurement by calculation (mass/volume)2019-11-03 04:40:00 Test Item Value Reference Range Interpretation Comments Globulin (test code = 62544-2) 2.8 g/dL [facility] or plasma albumin/globulin mass ratio 2019-11-03 04:40:00 Test Item Value Reference Range Interpretation Comments Albumin/Globulin Ratio (test code = 1.2 1759-0) [facility] or plasma alkaline phosphatase measurement (enzymatic activity/volume)2019-11-03 04:40:00 Test Item Value Reference Range Interpretation Comments Alkaline Phosphatase (test code = 71 U/L 6768-6) [facility] blood [id number] 18:05:00 Test Item Value Reference Range Interpretation Comments Blood Culture (test code No growth in 24 hrs. = 600-7) [facility] blood lactic acid measurement (moles/volume)2019-11-02 18:04:00 Test Item Value Reference Range Interpretation Comments Bedside Lactic Acid Venous (test 1.18 mmol/L code = 2519-7) [facility] whole blood sodium measurement (moles/volume)2019-11-02 16:35:00 Test Item Value Reference Range Interpretation Comments Bedside Sodium (test code = 134 mmol/L 44248-8) [facility] whole blood potassium measurement (moles/volume)2019-11-02 16:35:00 Test Item Value Reference Range Interpretation Comments Bedside Potassium (test code = 2.9 mmol/L 52185-9) [facility] whole blood chloride measurement (moles/volume)2019-11-02 16:35:00 Test Item Value Reference Range Interpretation Comments Bedside Chloride (test code = 101 mmol/L 89673-4) [facility] whole blood total carbon dioxide measurement (moles/volume)2019-11-02 16:35:00 Test Item Value Reference Range Interpretation Comments Bedside Total CO2 (test code = 22.0 mmol/L 2026-) [facility] whole blood urea nitrogen (BUN) measurement (mass/volume)2019-11-02 16:35:00 Test Item Value Reference Range Interpretation Comments Bedside Blood Urea Nitrogen (test 5 mg/dL code = 58964-6) [facility] creatinine measurement (mass/volume) 2019-11-02 16:35:00 Test Item Value Reference Range Interpretation Comments Bedside Creatinine (test code = 0.7 mg/dL 60982-5) [facility] whole blood glucose measurement (mass/volume)2019-11-02 16:35:00 Test Item Value Reference Range Interpretation Comments Bedside Glucose (test code = 105 mg/dL 48859-9) [facility] ionized calcium measurement (moles/volume)2019-11-02 16:35:00 Test Item Value Reference Range Interpretation Comments Bedside Whole Blood Ionized 1.04 mmol/L Calcium (test code = 1994-3) [facility] anion [id number] 16:35:00 Test Item Value Reference Range Interpretation Comments Bedside Anion Gap (test code = 19173-9) 16 [facility] [id number] 16:35:00 Test Item Value Reference Range Interpretation Comments Estimat Glomerular Filtration Rate 117 (test code = 69345-2) [facility] blood hemoglobin measurement (mass/volume)2019-11-02 16:35:00 Test Item Value Reference Range Interpretation Comments Bedside Hemoglobin (test code = 10.2 g/dL 04961-9) [facility] blood hematocrit (volume fraction) 2019-11-02 16:35:00 Test Item Value Reference Range Interpretation Comments Bedside Hematocrit (test code = 30.0 % 33549-2) [facility] Hospital[facility]inalysis specimen collection method 2019-11-02 16:30:00 Test Item Value Reference Range Interpretation Comments Urine Source (test code = 66351-1) URINE [facility] Urine by [id number] 16:30:00 Test Item Value Reference Range Interpretation Comments Urine Color (test code = 96062-3) Lt Yellow [facility] clarity [id number] 16:30:00 Test Item Value Reference Range Interpretation Comments Urine Appearance (test code = 02951-0) Clear [facility] pH measurement by automated test strip 2019-11-02 16:30:00 Test Item Value Reference Range Interpretation Comments Urine pH (test code = 76799-6) 7.0 [facility] gravity of Urine by Automated test [id number] 16:30:00 Test Item Value Reference Range Interpretation Comments Urine Specific [place] (test code = 1.005 51378-5) [facility] protein measurement by automated test strip (mass/volume)2019-11-02 16:30:00 Test Item Value Reference Range Interpretation Comments Urine Protein (test code = Negative mg/dL 99757-7) [facility] glucose measurement by automated test strip (mass/volume)2019-11-02 16:30:00 Test Item Value Reference Range Interpretation Comments Urine Glucose (UA) (test code Negative mg/dL = 77665-9) [facility] ketones measurement by automated test strip (mass/volume)2019-11-02 16:30:00 Test Item Value Reference Range Interpretation Comments Urine Ketones (test code = Negative mg/dL 85891-2) [facility] erythrocytes count by automated test strip (number/volume)2019-11-02 16:30:00 Test Item Value Reference Range Interpretation Comments Urine Occult Blood (test code = Negative 23148-4) [facility] nitrite detection by automated test [id number] 16:30:00 Test Item Value Reference Range Interpretation Comments Urine Nitrite (test code = 13329-0) Negative [facility] total bilirubin measurement by automated test strip (mass/volume)2019-11-02 16:30:00 Test Item Value Reference Range Interpretation Comments Urine Bilirubin (test code = Negative mg/dL 40494-4) [facility] urobilinogen measurement by automated test strip (mass/volume)2019-11-02 16:30:00 Test Item Value Reference Range Interpretation Comments Urine Urobilinogen (test code Negative mg/dL = 76430-7) [facility] leukocytes count by automated test strip (number/volume)2019-11-02 16:30:00 Test Item Value Reference Range Interpretation Comments Urine Leukocyte Esterase Negative {Freddy}/uL (test code = 75959-2) [facility] HospitalMicroscopic examination of [id number] 16:30:00 Test Item Value Reference Range Interpretation Comments Microscopic Urinalysis (T) (test code Not Ind = 45452-3) [facility] comment [id number] 16:30:00 Test Item Value Reference Range Interpretation Comments Urinalysis Comment (test code = 8262-8) * [facility]
--- OUTSIDE RECORDS SUMMARY | 2020-09-03 07:57 | XMS REPORT | Summary of Care ---
:1940 Author Organization [facility] - Health Address [address] [place] [address] Care Team Providers Name Role Phone Laly Dunlap Primary Care Provider Encounter Details Date Type Department Care Team Description 08/19/2020 Orders Only [facility] Doctor Unassigned, No [address] [facility] [place] [address] [address] [place] [address] Allergies Not on Filedocumented as of this encounter (statuses as of 08/19/2020) Medications Not on filedocumented as of this encounter (statuses as of 08/19/2020) Active Problems Not on filedocumented as of this encounter (statuses as of 08/19/2020) Social History Tobacco Use Types Packs/Day Years Used Date Never Assessed Sex Assigned at Date Recorded Not on file documented as of this encounter Last Filed Vital Signs Not on filedocumented in this encounter Plan of Treatment Date Type Specialty Care Team Description 08/19/2020 Office Visit Orthopedic Surgery Norman Chowdhury MD [address] [place] [address] [phone] Health Maintenance Due Date Last Done Comments Depression Screening 1952 DTaP,Tdap,and Td Vaccines (1 - Tdap) 1961 Zoster Recombinant Vaccine (SHINGRIX) (1 of 2) 1992 Medicare Wellness Visit 2007 PNEUMOCOCCAL VACCINES 65+ (1 of 1 - PPSV23) 2007 INFLUENZA VACCINE (#1) 2020 documented as of this encounter Procedures Procedure Name Priority Date/Time Associated Diagnosis Comme nts ASSIGNMENT OF BENEFITS Routine 08/19/2020 9:41 AM CDT documented in this encounter Results Not on filedocumented in this encounter Insurance Payer Benefit Plan / Subscriber ID Effective Dates Phone Addre ss Type Group MARTY RACHEL [id number] 2020-Prese Medicare Adv PLUS PLUS CHOICE nt HMO/POS documented as of this encounter
--- NOTE | 2020-09-03 08:59 | ER ---
Nurse's Notes [facility] Name: Roxane Chávez Age: 79 yrs Sex: Male : 1940 Arrival Date: 09/03/2020 Time: 07:57 Bed 20 Private MD: Laly Dunlap F Diagnosis: Pain in right foot;Osteoarthritis, unspecified site Presentation: 09/03 07:58 Chief complaint: Patient states: Woke up this morning with pain and redness on top of rb1 the right foot. 07:58 Coronavirus screen: Client denies travel out of the [place] in the last 14 days. At this rb1 time, the client does not indicate any symptoms associated with coronavirus-19. Ebola Screen: Patient denies travel to an Ebola-affected area in the 21 days before illness onset. Initial Sepsis Screen: Does the patient meet any 2 criteria? No. Patient's initial sepsis screen is negative. Does the patient have a suspected source of infection? Yes: Other: pt. has been scratching where the pain and redness are on the right foot. Risk Assessment: Do you want to hurt yourself or someone else? Patient reports no desire to harm self or others. Onset of symptoms was September 03, 2020. 07:58 Method Of Arrival: Ambulatory rb1 07:58 Acuity: TITO 4 rb1 Triage Assessment: 07:58 General: Appears in no apparent distress. comfortable, Behavior is calm, cooperative, rb1 Denies fever, feeling ill. Pain: Complains of pain in right foot Pain currently is 0 out of 10 on a pain scale. Pain began this morning. Pain is a 10/10 if you touch the right foot. Neuro: Level of Consciousness is awake, alert, obeys commands, Oriented to person, place, time, situation. Cardiovascular: Capillary refill < 3 seconds Pulses are palpable in right dorsalis pedis artery. Respiratory: Airway is patent Respiratory effort is even, unlabored, Respiratory pattern is regular, symmetrical. GI: No signs and/or symptoms were reported involving the gastrointestinal system. : No signs and/or symptoms were reported regarding the genitourinary system. Derm: Skin is red, redness is noted to the top of the right foot, pt. reports scratching his leg and foot due to a rash he has all over. He saw his PCP for it, and the PCP thinks it is related to an unknown medication. Musculoskeletal: Range of motion: intact in all extremities. Historical: - Allergies: 07:58 Ciprofloxacin; rb1 07:58 Unknown medication - Per PCP; rb1 - Home Meds: 07:58 hydrochlorothiazide 25 mg Oral tab 1 tab once daily [Active]; Benadryl 25 mg Oral cap 2 rb1 caps once daily [Active]; True Aloe 400 mg 1 tab daily [Active]; cetirizine 10 mg oral tab 1 tab once daily [Active]; - PMHx: 07:58 GERD; Hypertension; Prostate Cancer; rb1 - PSHx: 07:58 Tonsillectomy; rb1 - Immunization history:: Adult Immunizations up to date. - Social history:: Smoking status: Patient/guardian denies using. - Family history:: not pertinent. - Hospitalizations: : No recent hospitalization is reported. Screenin:58 Abuse screen: Denies threats or abuse. Nutritional screening: No deficits noted. rb1 Tuberculosis screening: No symptoms or risk factors identified. Fall Risk None identified. Assessment: 07:58 General: See triage assessment. rb1 08:50 Reassessment: Patient appears in no apparent distress at this time. No changes from rb1 previously documented assessment. Vital Signs: 07:58 BP 146 / 96; Pulse 91; Resp 19; Temp 97.8; Pulse Ox 96% ; Weight 83.46 kg; Height 5 ft. rb1 11 in. (180.34 cm); Pain 10/10; 08:50 BP 157 / 92; Pulse 58; Resp 17; Pulse Ox 99% ; rb1 07:58 Body Mass Index 25.66 (83.46 kg, 180.34 cm) rb1 07:58 Pt. reports it doesn't hurt if you don't touch it, but if you touch it, the pain is a rb1 10/10 ED Course: 07:57 Patient arrived in ED. as 07:57 Laly Dunlap MD is Private Physician. as 07:58 Lisa Fontanez, GABRIELLE is Primary Nurse. rb1 07:58 Luigi Gonsalves MD is Attending Physician. rn 07:58 Arm band placed on right wrist. rb1 07:58 Patient has correct armband on for positive identification. Bed in low position. Call rb1 light in reach. Side rails up X 1. Pulse ox on. NIBP on. 08:11 Triage completed. rb1 08:33 XRAY Foot RIGHT 3 View In Process Unspecified. EDMS 09:16 No provider procedures requiring assistance completed. Patient did not have IV access rb1 during this emergency room visit. Administered Medications: No medications were administered Outcome: 08:59 Discharge ordered by . rn 09:16 Discharged to home ambulatory, with family. rb1 09:16 Condition: stable 09:16 Discharge instructions given to patient, Instructed on discharge instructions, follow up and referral plans. medication usage, Demonstrated understanding of instructions, follow-up care, medications, Prescriptions given X 2. 09:17 Patient left the ED. rb1 Signatures: Dispatcher [employer] Ana Mariano Roman, MD MD rn Barber, Rebecca, RN RN rb1
--- NOTE | 2020-09-03 09:00 | EDPHYS ---
Physician Documentation [facility] Name: Roxane Chávez Age: 79 yrs Sex: Male : 1940 Arrival Date: 09/03/2020 Time: 07:57 Bed 20 Private MD: Laly Dunlap F ED Physician Luigi Gonsalves HPI: 09/03 08:27 This 79 yrs old Male presents to ER via Ambulatory with complaints of Foot rn Pain. 08:27 The patient presents with pain, that is acute. The complaints affect the right foot. rn Onset: The symptoms/episode began/occurred this morning. Modifying factors: The symptoms are alleviated by nothing, the symptoms are aggravated by touching area. Associated signs and symptoms: Pertinent positives: swelling, Pertinent negatives: fever. Severity of symptoms: At their worst the symptoms were mild, in the emergency department the symptoms are unchanged. The patient has not experienced similar symptoms in the past. Reports top of right foot hurting since this morning, no injury, reports has been dealing with nonspecific rash "for awhile". No fever. Has been scratching a lot. Told to take allergy medication recently without alleviation. . Historical: - Allergies: 07:58 Ciprofloxacin; rb1 07:58 Unknown medication - Per PCP; rb1 - Home Meds: 07:58 hydrochlorothiazide 25 mg Oral tab 1 tab once daily [Active]; Benadryl 25 mg Oral cap 2 rb1 caps once daily [Active]; True Aloe 400 mg 1 tab daily [Active]; cetirizine 10 mg oral tab 1 tab once daily [Active]; - PMHx: 07:58 GERD; Hypertension; Prostate Cancer; rb1 - PSHx: 07:58 Tonsillectomy; rb1 - Immunization history:: Adult Immunizations up to date. - Social history:: Smoking status: Patient/guardian denies using. - Family history:: not pertinent. - Hospitalizations: : No recent hospitalization is reported. ROS: 08:27 Constitutional: Negative for fever, chills, and weight loss, MS/Extremity: Negative for rn injury and deformity, Skin: Negative for injury Neuro: Negative for weakness, numbness, tingling Exam: 08:27 Constitutional: This is a well developed, well nourished patient who is awake, alert, rn and in no acute distress. Ambulatory without assistance to room Skin: Warm, dry, + excoriations to bilateral lower extremities, no streaking, no warmth, + small area on dorsum of right foot approx 1-2 cm, no fluctuance, no erythema, but tender with mild swelling. MS/ Extremity: Pulses equal, no cyanosis. Neurovascular intact. Full, normal range of motion. Equal circumference. Vital Signs: 07:58 BP 146 / 96; Pulse 91; Resp 19; Temp 97.8; Pulse Ox 96% ; Weight 83.46 kg; Height 5 ft. rb1 11 in. (180.34 cm); Pain 10/10; 08:50 BP 157 / 92; Pulse 58; Resp 17; Pulse Ox 99% ; rb1 07:58 Body Mass Index 25.66 (83.46 kg, 180.34 cm) rb1 07:58 Pt. reports it doesn't hurt if you don't touch it, but if you touch it, the pain is a rb1 1010 MDM: 07:58 Patient medically screened. rn 08:57 Differential diagnosis: fracture, sprain, arthritis, gout, cellulitis. Differential rn diagnosis: superficial thrombophlebitis. Data reviewed: vital signs, nurses notes. Counseling: I had a detailed discussion with the patient and/or guardian regarding: the historical points, exam findings, and any diagnostic results supporting the discharge/admit diagnosis, radiology results, the need for outpatient follow up, to return to the emergency department if symptoms worsen or persist or if there are any questions or concerns that arise at home. Special discussion: I discussed with the patient/guardian in detail that at this point there is no indication for admission to the hospital. It is understood, however, that if the symptoms persist or worsen the patient needs to return immediately for re-evaluation. ED course: + degenerative changes of 1st MCP with possible stress fractures there but patient without complaints, likely chronic, superficial swelling with focal tenderness could be thrombophlebitis vs early cellulitis given amount of excoriations and skin breakdown. Will dc home with abx and steroids, along with pcp f/u. Return precautions given and understood.. 09/03 08:08 Order name: XRAY Foot RIGHT 3 View; Complete Time: 09:17 rn Administered Medications: No medications were administered Disposition: 09/03/20 08:59 Discharged to Home. Impression: Pain in right foot, Osteoarthritis, unspecified site. - Condition is Stable. - Discharge Instructions: Musculoskeletal Pain, Foot Pain. - Prescriptions for Medrol (Zac) 4 mg Oral Tablets, Dose Pack - take 1 tablet by ORAL route as directed - follow package instructions; 1 packet. Keflex 500 mg Oral Capsule - take 1 capsule by ORAL route every 12 hours for 10 days; 20 capsule. - Medication Reconciliation Form, Thank You Letter, Antibiotic Education, Prescription Opioid Use form. - Follow up: Private Physician; When: As needed; Reason: Recheck today's complaints, Re-evaluation by your physician. - Problem is new. - Symptoms are unchanged. Signatures: Dispatcher [employer] EDMS Luigi Gonsalves MD MD rn Barber, Rebecca, RN RN rb1 Corrections: (The following items were deleted from the chart) : 08:59 09/03/2020 08:59 Discharged to Home. Impression: Pain in right foot; rb1 Osteoarthritis, unspecified site. Condition is Stable. Forms are Medication Reconciliation Form, Thank You Letter, Antibiotic Education, Prescription Opioid Use. Follow up: Private Physician; When: As needed; Reason: Recheck today's complaints, Re-evaluation by your physician. Problem is new. Symptoms are unchanged. rn
--- NOTE | 2020-09-03 09:15 | RAD REPORT ---
EXAM DESCRIPTION: RAD - Foot Right 3 View - 09/03/2020 8:33 am CLINICAL HISTORY: PAIN COMPARISON: Foot Right 3 View dated 09/14/2014 FINDINGS: No fracture, dislocation or periosteal reaction. No destructive bone process identifiable. Patient has advanced degenerative change at the first MTP joint. The joint space is narrowed. Medial spurring changes have increased and there is a slightly greater valgus configuration. No erosive or destructive component. The second- fifth MTP joints show no degenerative change. Increased soft tissu es noted along the medial first MTP joint without calcification. No air or foreign body in the soft tissues. IMPRESSION: No acute bone, joint or soft tissue finding identifiable. Advanced degenerative change with soft tissue thickening at the first MTP is not new but has shown si gnificant progression from 2013.
[2020-09-03 09:22] VITALS: TEMP 97.8
[2020-09-03 09:24] VITALS: BP 157/92; O2SAT 99
== END 2020-09-03 09:17 | disposition home or self-care (01) ==
LOC: ER 07:54
DX: M19.90 Unspecified osteoarthritis, unspecified site (principal); I10 Essential (primary) hypertension; K21.9 Gastro-esophageal reflux disease without esophagitis; Z85.46 Personal history of malignant neoplasm of prostate; Z88.1 Allergy status to other antibiotic agents
CPT/HCPCS: 99283

== ENCOUNTER 2020-12-18 14:57 | Emergency (ER) | payer OTHER ==
--- OUTSIDE RECORDS SUMMARY | 2020-12-18 15:00 | XMS REPORT | Summary of Care ---
:1940 Author Organization [facility] Address [address] [place] [id number] Care Team Providers Name Role Phone Laly Dunlap Primary Care Provider Reason for Referral MRI/CAT Scan (Routine) Status Reason Specialty Diagnoses / Referred By Referred To Procedures Contact Contact Closed Diagnostic Diagnoses Chronic left shoulder pain Chronic left shoulder pain Nnamdi Chowdhury Radiology Procedures MR SHOULDER LEFT WO CONTRAST CHG MRI, JOINT UPPER EXTREM MR SHOULDER LEFT WO CONTRAST MD Berry [address] [place] [address] MRI/CAT Scan (Routine) Status Reason Specialty Diagnoses / Referred By Referred To Procedures Contact Contact New Request Diagnostic Diagnoses Chronic left shoulder pain Nnamdi Chowdhury Radiology Procedures MR SHOULDER LEFT WO CONTRAST MR SHOULDER LEFT W WO CONTRAST MD Berry [address] [place] [address] Reason for Visit Reason Comments New Patient Left shoulder Pain (Routine) Status Reason Specialty Diagnoses / Referred By Referred To Procedures Contact Contact Authorized ORT-ORTHOPAEDIC Diagnoses Pain in left shoulder Pain in shoulder OUTSIDE SALES/Left Shoulder Pain/Has Films Laly Dunlap Craig SURGERY / Procedures CONSULT/REFERRAL ORTHOPAEDIC SURGERY NEW VISIT (FIRST TIME) Olivier Smart MD Orthopedic Surgery [address] [facility], [place] [phone] Phone: Fax: Encounter Details Date Type Department Care Team Description 08/19/2020 Office Visit [facility] Orthopaedic Nnamdi Chowdhury hronic left shoulder Surgery- Pretty Smart MD pain (Primary Dx) [address], [address] [place] [address] [place] [address] [address], [place] [phone] Allergies No Known Allergiesdocumented as of this encounter (statuses as of 09/28/2020) Medications Medication Sig Dispensed Refills Start Date End Date Status cetirizine 5 mg tablet TAKE 1 TABLET 0 07/31/2020 Active BY MOUTH EVERY DAY NEEDED diphenhydrAMINE Take 25 mg by 0 Active (BENADRYL) 25 mg capsule mouth every 6 (six) hours as needed for Allergies. documented as of this encounter (statuses as of 09/28/2020) Active Problems Not on filedocumented as of this encounter (statuses as of 09/28/2020) Social History Tobacco Use Types Packs/Day Years Used Date Never Smoker Smokeless Tobacco: Never Used Alcohol Use Drinks/Week oz/Week Comments Yes Alcohol Habits Answer Date Recorded How often do you have a drink containing alcohol? 2-3 times a week 08/19/2020 How many drinks containing alcohol do you have on a Not aske d 08/19/2020 typical day when you are drinking? How often do you have six or more drinks on one Not asked 08/19/2020 occasion? Sex Assigned at Date Recorded Not on file COVID-19 Exposure Response Date Recorded In the last month, have you been in contact with No / Unsure 09/13/2020 10:15 AM CDT someone who was confirmed or suspected to have Coronavirus / COVID-19? documented as of this encounter Last Filed Vital Signs Vital Sign Reading Time Taken Comments Blood Pressure - - Pulse - - Temperature - - Respiratory Rate - - Oxygen Saturation - - Inhaled Oxygen Concentration - - Weight 81.6 kg (180 lb) 08/19/2020 9:54 AM CDT Height 180.3 cm (5' 11") 08/19/2020 9:54 AM CDT Body Mass Index 25.1 08/19/2020 9:54 AM CDT documented in this encounter Progress Notes Nnamdi Chowdhury MD - 08/19/2020 9:45 AM CDT Cc: Chief Complaint Patient presents with New Patient Left shoulder Pain OUTSIDE SALES - Left Shoulder Injury - Mid-April. States he was attempting to cross over a baby gate while holding items in his arms. He tripped and fell landing on his left shoulder. Xrays from [facility]. Katt Vargas 08/19/2020 10:02 AM Roxane Chávez is a 79 year old male. Shoulder Pain The pain is present in the left shoulder. Episode onset: 04/2020. There has been a history of trauma. The problem occurs constantly. The problem has been gradually worsening. The quality of the pain isdescribed as aching and sharp. The pain is at a severity of 4/10. The pain is moderate. Associated symptoms include an inability to bear weight and a limited range of motion. The symptoms are aggravated by activity. He has tried NSAIDS and rest for the symptoms. Allergies Roxane has No Known Allergies. Medications Outpatient Medications Prior to Visit Medication Sig Dispense Refill diphenhydrAMINE (BENADRYL) 25 mg capsule Take 25 mg by mouth every 6 (six) hours as needed for Allergies. cetirizine 5 mg tablet TAKE 1 TABLET BY MOUTH EVERY DAY NEEDED No facility-administered medications prior to visit. Histories Past Medical History: Diagnosis Date Allergic rhinitis No past surgical history on file. Social History Socioeconomic History Marital status: Spouse name: Not on file Number of children: Not on file Years of education: Not on file Highest education level: Not on file Occupational History Not on file Social Needs Financial resource strain: Not on file Food insecurity Worry: Not on file Inability: Not on file Transportation needs Medical: Not on file Non-medical: Not on file Tobacco Use Smoking status: Never Smoker Smokeless tobacco: Never Used Substance and Sexual Activity Alcohol use: Yes Frequency: 2-3 times a week Drug use: Not on file Sexual activity: Not on file Lifestyle Physical activity Days per week: Not on file Minutes per session: Not on file Stress: Not on file Relationships Social connections Talks on phone: Not on file Gets together: Not on file Attends episcopal service: Not on file Active member of club or organization: Not on file Attends meetings of clubs or organizations: Not on file Relationship status: Not on file Intimate partner violence Fear of current or ex partner: Not on file Emotionally abused: Not on file Physically abused: Not on file Forced sexual activity: Not on file Other Topics Concern Not on file Social History Narrative Not on file Family History Problem Relation Age of Onset No Significant Medical Problems Mother No Significant Medical Problems Father Review of Systems Constitutional: Positive for activity change. HENT: Negative. Eyes: Negative. Respiratory: Negative. Cardiovascular: Negative. Gastrointestinal: Negative. Genitourinary: Negative. Musculoskeletal: Negative for gait problem and joint swelling. Skin: Negative. Neurological: Negative. Psychiatric/Behavioral: Negative. Endocrine: Endocrine negative Vital Signs Ht 71" (180.3 cm) | Wt 81.6 kg (180 lb) | BMI 25.10 kg/m Physical Exam Musculoskeletal: Comments: Positive casarez Positive neer General: Well-developed well-nourished oriented to person place and time HEENT normocephalic atraumatic atraumatic pupils equal round reactive to light extraocular muscles intact Cervical thoracic and lumbar spine without focal deficit normal kyphosis and lordosis Chest clear to auscultation and percussion Cardiovascular regular rate and rhythm without gallop rub or murmur soft without organomegaly Normal bowel sounds Neurologic: Focal myotome or dermatomal deficits Vascular: Intact symmetrical bilateral upper and lower extremities Skin without stasis varicosities or breakdown Extremities without cyanosis clubbing or edema Lymphatics no peripheral lymphedema Psych normal mood and affect. Neurovascular function is intact. To include brisk capillary refill warm pink skin active motor function and sensory function intact. Assessment/Plan Left shoulder injury MRI of the left shoulder documented in this encounter Plan of Treatment Name Type Priority Associated Diagnoses Order S chedule MR SHOULDER LEFT WO IMAGING Routine Chronic left shoulder Expected: 08/19/2020, CONTRAST pain Expires: 2020 Health Maintenance Due Date Last Done Comments Depression Screening 1954 DTaP,Tdap,and Td Vaccines (1 - Tdap) 1961 Zoster Recombinant Vaccine (SHINGRIX) (1 of 2) 1992 Medicare Wellness Visit 2007 PNEUMOCOCCAL VACCINES 65+ (1 of 1 - PPSV23) 2007 INFLUENZA VACCINE (#1) 2020 documented as of this encounter Results MR SHOULDER LEFT WO CONTRAST (09/13/2020 11:20 AM CDT) Specimen Narrative Performed At HISTORY: Pain in the left shoulder. PACS/VR/DOSE TECHNIQUE: MR imaging of the left shoulder was done in multiple projections using 1.5T MR unit and standard protocol. Some of the sequences had to be repeated due to motion. FINDINGS: Full-thickness tear detected involving most of the infraspinatus tendon, supraspinatus as well as upper s ubscapularis tendons allowing cephalad of displacement of the head of the humerus with decreased subacromial space. Moderate glenohumeral joint effusio n and moderate fluid in the subdeltoid/subacromial bursa note d. Moderate to severe atrophy noted involving supraspinat us and infraspinatus muscles. Due to tear involving the deep fibers of subs capularis, there is medial displacement of the long head of the biceps tendon. Long head of the biceps tendon also show ed partial tear in the intra-articular segment. There also appe ars to be large displaced tear involving mostly anterior and inferior labrum reaching up to the level of the bicipital anchor. AC joint shows mild degenerative arthrosis without sig nificant impingement. Thickening of the coracohumeral ligament noted. No sig nificant subcoracoid impingement. Glenohumeral joint showed mild degenerat monik osteoarthritis. CONCLUSIONS: 1. Massive tear involving supraspinatus, infraspinatus and upper half of subscapularis tendons with cephalad migration of the h ead of the humerus, moderate left glenohumeral joint effusio n and fluid in the subdeltoid/subacromial bursa. 2. Displaced tear involving entire anterior labrum ext ending from 12:00 to 6:00 location. 3. Partial tear in the intra-articular segment of long head of the biceps tendon. Procedure Note [facility], Radiant Results Inft User - 2019 12:14 PM CDT HISTORY: Pain in the left shoulder. TECHNIQUE: MR imaging of the left should er was done in multiple projections using 1.5T MR unit and standard protocol . Some of the sequences had to be repeated due to motion. FINDINGS: Full-thickness tear detected i nvolving most of the infraspinatus tendon, supraspinatus as well as upper s ubscapularis tendons allowing cephalad of displacement of the head of the humerus with decreased subacromial space. Moderate glenohumeral joint effusion and moderate fluid in the subdeltoid/subacromial bursa note d. Moderate to severe atrophy noted involvi ng supraspinatus and infraspinatus muscles. Due to tear involving the deep fibers of subscapularis, there is medial displacement of the long head of the biceps tendon. Long head of the biceps tendon also show ed partial tear in the intra-articular segment. There also appe ars to be large displaced tear involving mostly anterior and inferior l abrum reaching up to the level of the bicipital anchor. AC joint shows mild degenerative arthros is without significant impingement. Thickening of the coracohumeral ligament noted. No significant subcoracoid impingement. Glenohumeral joint showed mild degenerat monik osteoarthritis. CONCLUSIONS: 1. Massive tear involving supraspinatus, infraspinatus and upper half of subscapularis tendons with cephalad migr ation of the head of the humerus, moderate left glenohumeral joint effusio n and fluid in the subdeltoid/subacromial bursa. 2. Displaced tear involving entire anter ior labrum extending from 12:00 to 6:00 location. 3. Partial tear in the intra-articular s egment of long head of the biceps tendon. Performing Organization Address [facility] Phone Number PACS/VR/DOSE documented in this encounter Visit Diagnoses Diagnosis Chronic left shoulder pain - Primary Pain in joint, shoulder region documented in this encounter Insurance Payer Benefit Plan / Subscriber ID Effective Dates Phone Addre ss Type Group [employer] RACHEL [id number] 2020-Prese Medicare Adv PLUS PLUS CHOICE nt HMO/POS documented as of this encounter
--- OUTSIDE RECORDS SUMMARY | 2020-12-18 15:00 | XMS REPORT | Continuity of Care Document ---
:1940 Author Organization [facility] t Address [address] [place] [address] Care Team Providers Name Role Phone FOUND, NOT Primary Care Physician Unavailable Luciana PARK, L Attending Clinician Advance Directives Directive Decision Effective Date Termination Date Comments Sour ce Yes N/A [facility] - Serjio per [facility] Problems Condition Condition Condition Status Onset Resolution Last Treating Co mments Source Name Details Category Date Date Treatment Clinician Date Problem Condition [facility] Allergies, Adverse Reactions, Alerts This patient has no known allergies or adverse reactions. Social History Social Habit Start Date Stop Date Quantity Comments Source Sex Assigned At [birth year] Male [facility] 00:00:00 00:00:00 [facility] Smoking Status Start Date Stop Date Source Unknown if ever smoked [facility] Medications Ordered Filled Start Stop Current Ordering Indication Dosage Frequency Signature Comments Components Source Medication Medication Date Date Medication? Clinician (SIG) Name Name Pantoprazol No 40mg [facility]STU e S - (Protonix) [place] 40 Mg [facility] Sucralfate No 1 [facility] (Carafate) S - 1 Gm TAB [place] [facility] Vital Signs Vital Name Observation Time Observation Value Comments Source Body Temperature 2019-11-04 12:00:00 99.5 [degF] [facility] Heart Rate 2019-11-04 12:00:00 94 /min [facility] Respiratory rate 2019-11-04 12:00:00 20 /min [facility] BP Systolic 2019-11-04 12:00:00 158 mm[Hg] [facility] BP Diastolic 2019-11-04 12:00:00 77 mm[Hg] [facility] Heart Rate 2019-11-02 23:46:00 75 /min [facility] Respiratory rate 2019-11-02 23:46:00 20 /min [facility] BP Systolic 2019-11-02 23:46:00 145 mm[Hg] [facility] BP Diastolic 2019-11-02 23:46:00 63 mm[Hg] [facility] Weight 2019-11-02 16:12:00 186 [lb_av] [facility] BMI (Body Mass Index) 2019-11-02 16:12:00 25.9 kg/m2 [facility] Procedures Procedure Date / Time Performed Performing Clinician [facility] e X-ray of chest, two 2019-11-04 00:00:00 [facility] Computed tomography of 2019-11-03 [facility] ospital contrast CT angiography of neck 2019-11-03 00:00:00 [facility] X-ray of chest, single 2019-11-02 00:00:00 [facility] Plan of Care Planned Activity Planned Date Details Comments Source Future Scheduled Test Bacterial blood culture [facility] [code = 600-7] [facility] Future Scheduled Test [facility] (number/volume) [code = 6690-2] Future Scheduled Test Blood erythrocytes [facility] automated count [facility] (number/volume) [code = 789-8] Future Scheduled Test Blood hemoglobin [facility] [place] measurement [facility] al (mass/volume) [code = 718-7] Future Scheduled Test Automated blood [facility] [place] hematocrit (volume [facility] fraction) [code = 4544-3] Future Scheduled Test Automated erythrocyte [facility] [place] mean corpuscular volume [facility] ([facility]) measurement [code = 787-2] Future Scheduled Test Automated erythrocyte [facility] [place] mean corpuscular [facility] spital hemoglobin (mass per erythrocyte) [code = 785-6] Future Scheduled Test Automated erythrocyte [facility] [place] mean corpuscular [facility] spital hemoglobin concentration measurement (mass/vol [code = 786-4] Future Scheduled Test Automated erythrocyte [facility] [place] distribution width [facility] ratio [code = 788-0] Future Scheduled Test Automated blood [facility] [place] platelet count [facility] (count/volume) [code = 777-3] Future Scheduled Test Automated blood [facility] [place] platelet mean volume [facility] measurement [code = 86637-0] Future Scheduled Test Service comment 04 [facility] [place] [code = 8265-1] [facility] Future Scheduled Test Serum or plasma sodium [facility] [place] measurement [facility] (moles/volume) [code = 2951-2] Future Scheduled Test Serum or plasma [facility] [place] potassium measurement [facility] (moles/volume) [code = 2823-3] Future Scheduled Test Serum or plasma [facility] [place] chloride measurement [facility] (moles/volume) [code = 2075-0] Future Scheduled Test Serum or plasma total [facility] [place] carbon dioxide [facility] measurement (moles/volume) [code = 2027-9] Future Scheduled Test Serum or plasma anion [facility] [place] gap determination [facility]/volume[facility] [code = 79668-7] Future Scheduled Test Serum or plasma urea [facility] [place] nitrogen measurement [facility] (mass/volume) [code = 3094-0] Future Scheduled Test Serum or plasma [facility] [place] creatinine measurement [facility] (mass/volume) [code = 2160-0] Future Scheduled Test GFR estimate MDRD [code [facility] [place] = 08505-5] [facility] Future Scheduled Test Serum or plasma urea [facility] nitrogen/creatinine [facility] mass ratio [code = 3097-3] Future Scheduled Test Serum or plasma glucose [facility] (mass/volume) [code = 2345-7] Future Scheduled Test Osmolality of Serum or [facility] [place] Plasma by calculation [facility] [code = 91796-0] Future Scheduled Test Serum or plasma calcium [facility] (mass/volume) [code = 33635-8] Instructions OTHER [facility] - sp [facility] Encounters Start End Encounter Admission Attending Care Care Encounter Source Date/Time Date/Time Type Type Clinicians Facility Department ID 2020-08-19 2020-08-19 Office Luciana [facility] [id number] 09:44:23 10:10:38 Visit [facility] [id number] Surgical [id number] Specialti [id number] [place] 2019-11-02 2019-11-04 Discharged MAHNAZ [place] [id number] [facility] 17:41:00 13:48:[address] 2019-10-14 2019-10-14 Inpatient E [facility] [facility] 03:16:00 00:09:00 Results Test Description Test Time Test Comments Results Result Comments Source Automated blood leukocyte count (number/volume) 2019-11-04 0 5:20:00 Test Item Value Reference Range Interpretation Comme nts White Blood Count (test code = 6690-2) 14.4 10*3/uL [facility] erythrocytes automated count (number/volume)2019-11-04 05:20:00 Test Item Value Reference Range Interpretation Comments Red Blood Count (test code = 2.79 10*6/uL 789-8) [facility] hemoglobin measurement (mass/volume) 2019-11-04 05:20:00 Test Item Value Reference Range Interpretation Comments Hemoglobin (test code = 718-7) 8.3 g/dL [facility] hematocrit (volume fraction) 2019-11-04 05:20:00 Test Item Value Reference Range Interpretation Comments Hematocrit (test code = 4544-3) 25.3 % [facility] mean corpuscular volume (MCV) [id number] 05:20:00 Test Item Value Reference Range Interpretation Comments Mean Corpuscular Volume (test code = 90.7 fL 787-2) [facility] mean corpuscular hemoglobin (mass per erythrocyte)2019-11-04 05:20:00 Test Item Value Reference Range Interpretation Comments Mean Corpuscular Hemoglobin (test 29.7 pg code = 785-6) [facility] mean corpuscular hemoglobin concentration measurement (mass/[id number] 05:20:00 Test Item Value Reference Range Interpretation Comments Mean Corpuscular Hemoglobin Concent 32.8 g/dL (test code = 786-4) [facility] eryth[facility] distribution width [id number] 05:20:00 Test Item Value Reference Range Interpretation Comments Red Cell Distribution Width (test code 16.3 % = 788-0) [facility] blood platelet count (count/volume) 2019-11-04 05:20:00 Test Item Value Reference Range Interpretation Comments Platelet Count (test code = 340 10*3/uL 777-3) [facility] blood platelet mean volume [id number] 05:20:00 Test Item Value Reference Range Interpretation Comments Mean Platelet Volume (test code = 10.1 fL 11612-0) [facility] comment [id number] 05:20:00 Test Item Value Reference Range Interpretation Comments Manual Differential (test code = ----- 8265-1) [facility] blood segmented neutrophils/100 [id number] 05:20:00 Test Item Value Reference Range Interpretation Comments Neutrophils % (Manual) (test code = 87 % 769-0) [facility] blood lymphocytes/100 leukocytes 2019-11-04 05:20:00 Test Item Value Reference Range Interpretation Comments Lymphocytes % (Manual) (test code = 9 % 737-7) [facility] blood monocytes/100 leukocytes 2019-11-04 05:20:00 Test Item Value Reference Range Interpretation Comments Monocytes % (Manual) (test code = 2 % 744-3) [facility] blood eosinophil count as percentage of total [id number] 05:20:00 Test Item Value Reference Range Interpretation Comments Eosinophils % (Manual) (test code = 2 % 714-6) [facility] platelet detection by light microscopy 2019-11-04 05:20:00 Test Item Value Reference Range Interpretation Comments Platelet Estimate (test code = Adequate 9317-9) [facility] erythrocyte morphology finding [id number] 05:20:00 Test Item Value Reference Range Interpretation Comments Red Blood Cell Morphology (test code = Normal 6742-1) [facility] or plasma sodium measurement (moles/volume)2019-11-04 05:20:00 Test Item Value Reference Range Interpretation Comments Sodium Level (test code = 2951-2) 136 mmol/L [facility] or plasma potassium measurement (moles/volume)2019-11-04 05:20:00 Test Item Value Reference Range Interpretation Comments Potassium Level (test code = 3.1 mmol/L 2823-3) [facility] or plasma chloride measurement (moles/volume)2019-11-04 05:20:00 Test Item Value Reference Range Interpretation Comments Chloride Level (test code = 104 mmol/L 5-0) [facility] or plasma total carbon dioxide measurement (moles/volume)2019-11-04 05:20:00 Test Item Value Reference Range Interpretation Comments Carbon Dioxide Level (test code = 23 mmol/L 2027-9) [facility] or plasma anion gap determination (moles/volume)2019-11-04 05:20:00 Test Item Value Reference Range Interpretation Comments Anion Gap (test code = 59772-9) 12 [facility] or plasma urea nitrogen measurement (mass/volume)2019-11-04 05:20:00 Test Item Value Reference Range Interpretation Comments Blood Urea Nitrogen (test code = 5 mg/dL 3094-0) [facility] plasma creatinine measurement (mass/volume)2019-11-04 05:20:00 Test Item Value Reference Range Interpretation Comments Creatinine (test code = 2160-0) 0.6 mg/dL [facility] [id number] 05:20:00 Test Item Value Reference Range Interpretation Comments Estimat Glomerular Filtration Rate 139 (test code = 01259-4) [facility] or plasma urea nitrogen/creatinine mass [id number] 05:20:00 Test Item Value Reference Range Interpretation Comments BUN/Creatinine Ratio (test code = 8 3097-3) [facility] or plasma glucose measurement (mass/volume)2019-11-04 05:20:00 Test Item Value Reference Range Interpretation Comments Glucose Level (test code = 2345-7) 112 mg/dL [facility] Center[facility]sm[facility]ality [facility] Serum or Plasma by calculation 2019-11-04 05:20:00 Test Item Value Reference Range Interpretation Comments Calculated Osmolality (test code 270 mosm/kg = 01938-4) [facility] or plasma calcium measurement (mass/volume)2019-11-04 05:20:00 Test Item Value Reference Range Interpretation Comments Calcium Level (test code = 23077-5) 8.1 mg/dL [facility] or plasma phosphate measurement (mass/volume)2019-11-03 04:40:00 Test Item Value Reference Range Interpretation Comments Phosphorus Level (test code = 3.0 mg/dL 2777-1) [facility] plasma magnesium measurement (mass/volume)2019-11-03 04:40:00 Test Item Value Reference Range Interpretation Comments Magnesium Level (test code = 1.91 mg/dL 05766-1) [facility] or plasma total bilirubin measurement (mass/volume)2019-11-03 04:40:00 Test Item Value Reference Range Interpretation Comments Total Bilirubin (test code = 0.9 mg/dL 1975-2) [facility] or plasma aspartate aminotransferase measurement (enzymatic activity/volume)2019-11-03 04:40:00 Test Item Value Reference Range Interpretation Comments Aspartate Amino Transf (AST/SGOT) 26 U/L (test code = 1920-8) [facility] or plasma alanine aminotransferase measurement (enzymatic activity/volume)2019-11-03 04:40:00 Test Item Value Reference Range Interpretation Comments Alanine Aminotransferase (ALT/SGPT) 13 U/L (test code = 1742-6) [facility] or plasma protein measurement (mass/volume)2019-11-03 04:40:00 Test Item Value Reference Range Interpretation Comments Total Protein (test code = 2885-2) 6.1 g/dL [facility] plasma albumin measurement (mass/volume)2019-11-03 04:40:00 Test Item Value Reference Range Interpretation Comments Albumin (test code = 1751-7) 3.3 g/dL [facility] globulin measurement by calculation (mass/volume)2019-11-03 04:40:00 Test Item Value Reference Range Interpretation Comments Globulin (test code = 14071-0) 2.8 g/dL [facility] or plasma albumin/globulin mass ratio 2019-11-03 04:40:00 Test Item Value Reference Range Interpretation Comments Albumin/Globulin Ratio (test code = 1.2 1759-0) [facility] or plasma alkaline phosphatase measurement (enzymatic activity/volume)2019-11-03 04:40:00 Test Item Value Reference Range Interpretation Comments Alkaline Phosphatase (test code = 71 U/L 6768-6) [facility] Center[facility] blood [id number] 18:05:00 Test Item Value Reference Range Interpretation Comments Blood Culture (test code No growth in 24 hrs. = 600-7) [facility] blood lactic acid measurement (moles/volume)2019-11-02 18:04:00 Test Item Value Reference Range Interpretation Comments Bedside Lactic Acid Venous (test 1.18 mmol/L code = 2519-7) [facility] whole blood sodium measurement (moles/volume)2019-11-02 16:35:00 Test Item Value Reference Range Interpretation Comments Bedside Sodium (test code = 134 mmol/L 44953-1) [facility] whole blood potassium measurement (moles/volume)2019-11-02 16:35:00 Test Item Value Reference Range Interpretation Comments Bedside Potassium (test code = 2.9 mmol/L 47145-6) [facility] whole blood chloride measurement (moles/volume)2019-11-02 16:35:00 Test Item Value Reference Range Interpretation Comments Bedside Chloride (test code = 101 mmol/L 66451-7) [facility] whole blood total carbon dioxide measurement (moles/volume)2019-11-02 16:35:00 Test Item Value Reference Range Interpretation Comments Bedside Total CO2 (test code = 22.0 mmol/L 7-1) [facility] whole blood urea nitrogen (BUN) measurement (mass/volume)2019-11-02 16:35:00 Test Item Value Reference Range Interpretation Comments Bedside Blood Urea Nitrogen (test 5 mg/dL code = 21198-8) [facility] creatinine measurement (mass/volume) 2019-11-02 16:35:00 Test Item Value Reference Range Interpretation Comments Bedside Creatinine (test code = 0.7 mg/dL 49194-4) [facility] whole blood glucose measurement (mass/volume)2019-11-02 16:35:00 Test Item Value Reference Range Interpretation Comments Bedside Glucose (test code = 105 mg/dL 57771-3) [facility] ionized calcium measurement (moles/volume)2019-11-02 16:35:00 Test Item Value Reference Range Interpretation Comments Bedside Whole Blood Ionized 1.04 mmol/L Calcium (test code = 1994-3) [facility] anion [id number] 16:35:00 Test Item Value Reference Range Interpretation Comments Bedside Anion Gap (test code = 42049-2) 16 [facility] estimate [id number] 16:35:00 Test Item Value Reference Range Interpretation Comments Estimat Glomerular Filtration Rate 117 (test code = 97867-9) [facility] blood hemoglobin measurement (mass/volume)2019-11-02 16:35:00 Test Item Value Reference Range Interpretation Comments Bedside Hemoglobin (test code = 10.2 g/dL 19834-8) [facility] Center[facility] blood hematocrit (volume fraction) 2019-11-02 16:35:00 Test Item Value Reference Range Interpretation Comments Bedside Hematocrit (test code = 30.0 % 75009-3) [facility] CenterUrinalysis specimen collection method 2019-11-02 16:30:00 Test Item Value Reference Range Interpretation Comments Urine Source (test code = 99300-4) URINE [facility] CenterColor of Urine by [id number] 16:30:00 Test Item Value Reference Range Interpretation Comments Urine Color (test code = 40597-3) Lt Yellow [facility] clarity [id number] 16:30:00 Test Item Value Reference Range Interpretation Comments Urine Appearance (test code = 51726-7) Clear [facility] pH measurement by automated test strip 2019-11-02 16:30:00 Test Item Value Reference Range Interpretation Comments Urine pH (test code = 61526-3) 7.0 [facility] Urine by Automated test [id number] 16:30:00 Test Item Value Reference Range Interpretation Comments Urine Specific [place] (test code = 1.005 41474-4) [facility] protein measurement by automated test strip (mass/volume)2019-11-02 16:30:00 Test Item Value Reference Range Interpretation Comments Urine Protein (test code = Negative mg/dL 27022-0) [facility] glucose measurement by automated test strip (mass/volume)2019-11-02 16:30:00 Test Item Value Reference Range Interpretation Comments Urine Glucose (UA) (test code Negative mg/dL = 98291-8) [facility] ketones measurement by automated test strip (mass/volume)2019-11-02 16:30:00 Test Item Value Reference Range Interpretation Comments Urine Ketones (test code = Negative mg/dL 79627-6) [facility] erythrocytes count by automated test strip (number/volume)2019-11-02 16:30:00 Test Item Value Reference Range Interpretation Comments Urine Occult Blood (test code = Negative 64948-6) [facility] Center[facility] nitrite detection by automated test [id number] 16:30:00 Test Item Value Reference Range Interpretation Comments Urine Nitrite (test code = 25542-4) Negative [facility] total bilirubin measurement by automated test strip (mass/volume)2019-11-02 16:30:00 Test Item Value Reference Range Interpretation Comments Urine Bilirubin (test code = Negative mg/dL 81743-8) [facility] urobilinogen measurement by automated test strip (mass/volume)2019-11-02 16:30:00 Test Item Value Reference Range Interpretation Comments Urine Urobilinogen (test code Negative mg/dL = 48123-8) [facility] Center[facility] leukocytes count by automated test strip (number/volume)2019-11-02 16:30:00 Test Item Value Reference Range Interpretation Comments Urine Leukocyte Esterase Negative {Freddy}/uL (test code = 15743-4) [facility] CenterMicroscopic examination of [id number] 16:30:00 Test Item Value Reference Range Interpretation Comments Microscopic Urinalysis (T) (test code Not Ind = 07119-7) [facility] comment 16:30:00 Test Item Value Reference Range Interpretation Comments Urinalysis Comment (test code = 8262-8) * [facility]
--- OUTSIDE RECORDS SUMMARY | 2020-12-18 15:00 | XMS REPORT | Summary of Care ---
:1940 Author Organization [facility] Address [address] [place] [address] Care Team Providers Name Role Phone Laly Dunlap Primary Care Provider Reason for Referral MRI/CAT Scan (Routine) Status Reason Specialty Diagnoses / Referred By Referred To Procedures Contact Contact Closed Diagnostic Diagnoses Chronic left shoulder pain Chronic left shoulder pain Nnamdi Chowdhury Radiology Procedures MR SHOULDER LEFT WO CONTRAST CHG MRI, JOINT UPPER EXTREM MR SHOULDER LEFT WO CONTRAST MD Berry [address] [place] [address] MRI/CAT Scan (Routine) Status Reason Specialty Diagnoses / Referred By Referred To Procedures Contact Contact New Request Diagnostic Diagnoses Chronic left shoulder pain Nnamdi Chowdhury Radiology Procedures MR SHOULDER LEFT WO CONTRAST MR SHOULDER LEFT W WO CONTRAST MD Berry [address] [place] [address] Reason for Visit Reason Comments New Patient Left shoulder Pain (Routine) Status Reason Specialty Diagnoses / Referred By Referred To Procedures Contact Contact Authorized ORT-ORTHOPAEDIC Diagnoses Pain in left shoulder 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 Laly Dunlap Craig SURGERY / Procedures CONSULT/REFERRAL ORTHOPAEDIC SURGERY NEW VISIT (FIRST TIME) Olivier Smart MD Orthopedic Surgery [address] [facility] [place] [phone] Phone: Fax: Encounter Details Date Type Department Care Team Description 08/19/2020 Office Visit [facility] Orthopaedic Nnamdi Chowdhury hronic left shoulder Surgery- Pretty Smart MD pain (Primary Dx) [address], [address] [place] [place] [address] [place], [place] [phone] Allergies No Known Allergiesdocumented as of this [...] presents with New Patient 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 States he was attempting to cross over a baby gate while holding items in his arms. He tripped and fell landing on his left shoulder. Xrays from [place]. Katt Vargas 08/19/2020 10:02 AM Roxane Chávez [...] file Gets together: Not on file Attends religion service: Not on file Active member of [...] of the biceps tendon. Performing Organization Address [facility] Phone Number PACS/VR/DOSE documented in this encounter Visit Diagnoses Diagnosis Chronic left shoulder pain - Primary Pain in joint, shoulder region documented in this encounter Insurance Payer Benefit Plan / Subscriber ID Effective Dates Phone Addre ss Type Group [employer]ACHEL [id number] 2020-Prese Medicare Adv PLUS PLUS CHOICE nt HMO/POS documented as of this encounter
--- NOTE | 2020-12-18 16:04 | ER ---
Nurse's Notes [facility] Name: Roxane Chávez Age: 80 yrs Sex: Male : 1940 Arrival Date: 12/18/2020 Time: 15:00 Bed 15 Private MD: Diagnosis: Rash and other nonspecific skin eruption Presentation: 12/18 15:10 Chief complaint: Patient states: Rash with itching to whole body for 2 weeks. States it ll1 has been going on a long time. States it was starting to get better, but returned worse for 2 weeks. trying hydrocortisone spray and generic benadryl at home. Coronavirus screen: Client denies travel out of the [place] in the last 14 days. At this time, the client does not indicate any symptoms associated with coronavirus-19. Ebola Screen: Patient denies travel to an Ebola-affected area in the 21 days before illness onset. Initial Sepsis Screen: Does the patient meet any 2 criteria? No. Patient's initial sepsis screen is negative. Does the patient have a suspected source of infection? Yes: Skin breakdown/wound. Risk Assessment: Do you want to hurt yourself or someone else? Patient reports no desire to harm self or others. Onset of symptoms was December 04, 2020. 15:10 Method Of Arrival: Ambulatory ll1 15:10 Acuity: TITO 4 ll1 Historical: - Allergies: 15:14 Ciprofloxacin; ll1 - PMHx: 15:14 GERD; Hypertension; Prostate Cancer; ll1 - PSHx: 15:14 Tonsillectomy; ll1 - Immunization history:: Flu vaccine is up to date. - Social history:: Smoking status: Patient denies any tobacco usage or history of. Screenin:09 Abuse screen: Denies threats or abuse. Nutritional screening: No deficits noted. vg1 Tuberculosis screening: No symptoms or risk factors identified. Fall Risk No fall in past 12 months (0 pts). No secondary diagnosis (0 pts). No IV (0 pts). Ambulatory Aid- None/Bed Rest/Nurse Assist (0 pts). Gait- Normal/Bed Rest/Wheelchair (0 pts) Mental Status- Oriented to own ability (0 pts). Total Lucas Fall Scale indicates No Risk (0-24 pts). Assessment: 16:08 General: Appears in no apparent distress. comfortable, Behavior is calm, cooperative. vg1 Pain: Denies pain. Neuro: Level of Consciousness is awake, alert, obeys commands, Oriented to person, place, time, situation. Cardiovascular: Patient's skin is warm and dry. Respiratory: Airway is patent Respiratory effort is even, unlabored, Respiratory pattern is regular, symmetrical. GI: No signs and/or symptoms were reported involving the gastrointestinal system. : No signs and/or symptoms were reported regarding the genitourinary system. EENT: No signs and/or symptoms were reported regarding the EENT system. Derm: Reports itching, all over body for several months. Musculoskeletal: Circulation, motion, and sensation intact. Vital Signs: 15:10 BP 157 / 74; Pulse 60; Resp 16; Temp 97.7; Pulse Ox 98% on R/A; Pain 0/10; ll1 16:09 BP 164 / 75; Pulse 60; Resp 14; Pulse Ox 99% on R/A; vg1 ED Course: 15:00 Patient arrived in ED. mr 15:12 Triage completed. ll1 15:12 Arm band placed on. ll1 15:43 Jake Garcia, TONIA is PHCP. pm1 15:43 Larissa Shaw MD is Attending Physician. pm1 16:07 Rossi Watkins, RN is Primary Nurse. vg1 16:09 Patient has correct armband on for positive identification. Bed in low position. Call vg1 light in reach. 16:22 No provider procedures requiring assistance completed. Patient did not have IV access vg1 during this emergency room visit. Administered Medications: No medications were administered Outcome: 16:04 Discharge ordered by . pm1 16:22 Discharged to home ambulatory. vg1 16:22 Condition: stable 16:22 Discharge instructions given to patient, family, Instructed on discharge instructions, follow up and referral plans. medication usage, Demonstrated understanding of instructions, follow-up care, medications, Prescriptions given X 2. 16:23 Patient left the ED. vg1 Signatures: Gutierrez Michaela dowd Jake Garcia, FISH CUTTER FISH CUTTER pm1 Rossi Watkins, GABRIELLE RN vg1 Monique Garcia RN RN ll1
--- NOTE | 2020-12-18 16:04 | EDPHYS ---
Physician Documentation [facility] Name: Roxane Chávez Age: 80 yrs Sex: Male : 1940 Arrival Date: 12/18/2020 Time: 15:00 Bed 15 Private MD: ED Physician Larissa Shaw HPI: 12/18 16:03 This 80 yrs old Male presents to ER via Ambulatory with complaints of Rash. pm1 16:03 The patient's rash thought to be caused by an unknown cause. The rash is located on the pm1 body diffusely. The rash can be described as urticarial. Onset: The symptoms/episode began/occurred 3-4 months ago. Associated signs and symptoms: Pertinent positives: itching, Pertinent negatives: fever, Pain swelling of lips, swelling of throat, swelling of tongue. Severity of symptoms: in the emergency department the symptoms are worse. Treatment given at home: Benadryl, steroid lotion/cream. The patient has experienced similar episodes in the past, multiple times. Has been seen by his PCP and dermatology. Given steroid treatment that resolves it then the following month it returns. Historical: - Allergies: 15:14 Ciprofloxacin; ll1 - PMHx: 15:14 GERD; Hypertension; Prostate Cancer; ll1 - PSHx: 15:14 Tonsillectomy; ll1 - Immunization history:: Flu vaccine is up to date. - Social history:: Smoking status: Patient denies any tobacco usage or history of. ROS: 16:03 Constitutional: Negative for fever, chills, and weight loss, Cardiovascular: Negative pm1 for chest pain, palpitations, and edema, Respiratory: Negative for shortness of breath, cough, wheezing, and pleuritic chest pain, Abdomen/GI: Negative for abdominal pain, nausea, vomiting, diarrhea, and constipation, MS/Extremity: Negative for injury and deformity. 16:03 Neuro: Negative for headache, weakness, numbness, tingling, and seizure. 16:03 Skin: Positive for rash, diffusely. Exam: 16:03 Constitutional: This is a well developed, well nourished patient who is awake, alert, pm1 and in no acute distress. Head/Face: Normocephalic, atraumatic. 16:03 Neuro: Awake and alert, GCS 15, oriented to person, place, time, and situation. Cranial nerves II-XII grossly intact. Motor strength 5/5 in all extremities. Sensory grossly intact. Cerebellar exam normal. Normal gait. 16:03 Cardiovascular: Exam negative for acute changes, Rate: normal, Rhythm: regular, Pulses: no pulse deficits are appreciated. 16:03 Respiratory: Exam negative for acute changes, respiratory distress, shortness of breath. 16:03 Skin: Appearance: normal except for affected area, consistent with urticaria, to arms and back. Consistent with ringworm to gluteus and oswald and bilateral hamstring area. Vital Signs: 15:10 BP 157 / 74; Pulse 60; Resp 16; Temp 97.7; Pulse Ox 98% on R/A; Pain 0/10; ll1 16:09 BP 164 / 75; Pulse 60; Resp 14; Pulse Ox 99% on R/A; vg1 MDM: 15:43 Patient medically screened. pm1 16:03 Data reviewed: vital signs. Data interpreted: Pulse oximetry: on room air is 98 %. pm1 Interpretation: normal. Counseling: I had a detailed discussion with the patient and/or guardian regarding: the historical points, exam findings, and any diagnostic results supporting the discharge/admit diagnosis, the need for outpatient follow up, for definitive care, a dry end tester, to return to the emergency department if symptoms worsen or persist or if there are any questions or concerns that arise at home. Administered Medications: No medications were administered Disposition: 12/18/20 16:04 Discharged to Home. Impression: Rash and other nonspecific skin eruption. - Condition is Stable. - Discharge Instructions: Hives, Rash, Body Ringworm. - Prescriptions for Clotrimazole 1 % Topical Cream - Apply to affected area 1 application by TOPICAL route every 12 hours; 30 gram. Medrol (Zac) 4 mg Oral Tablets, Dose Pack - take 1 tablet by ORAL route as directed - follow package instructions; 1 packet. - Medication Reconciliation Form, Thank You Letter, Antibiotic Education, Prescription Opioid Use form. - Follow up: Emergency Department; When: As needed; Reason: Worsening of condition. Follow up: Private Physician; When: 2 - 3 days; Reason: Recheck today's complaints, Continuance of care, Re-evaluation by your physician. - Problem is new. - Symptoms have improved. Addendum: 12/19/2020 18:30 Co-signature as Attending Physician, Larissa Shaw MD. m a2 Signatures: Jake Garcia, TONIA TRACK HELPER pm1 Larissa Shaw MD MD ma2 Rossi Watkins, RN RN vg1 Monique Garcia RN RN ll1 Corrections: (The following items were deleted from the chart) 12/18 16:23 16:04 12/18/2020 16:04 Discharged to Home. Impression: Rash and other nonspecific skin vg1 eruption. Condition is Stable. Forms are Medication Reconciliation Form, Thank You Letter, Antibiotic Education, Prescription Opioid Use. Follow up: Emergency Department; When: As needed; Reason: Worsening of condition. Follow up: Private Physician; When: 2 - 3 days; Reason: Recheck today's complaints, Continuance of care, Re-evaluation by your physician. Problem is new. Symptoms have improved. pm1
[2020-12-18 16:33] VITALS: TEMP 97.7
[2020-12-18 16:34] VITALS: BP 164/75; O2SAT 99
== END 2020-12-18 16:23 | disposition home or self-care (01) ==
LOC: ER 14:57
DX: R21 Rash and other nonspecific skin eruption (principal); Z88.1 Allergy status to other antibiotic agents; Z85.46 Personal history of malignant neoplasm of prostate
CPT/HCPCS: 99282

== ENCOUNTER → 2022-02-27 | Day surgery (SDC) | payer OTHER ==
--- NOTE | 2022-02-27 09:35 | RAD REPORT ---
EXAM DESCRIPTION: US - Breast Core BX w/US Guidance - 02/27/2022 9:30 am CLINICAL HISTORY: ICD R 92.8 COMPARISON: April 05, 2021 ultrasound TECHNIQUE: The risks, benefits alternatives to the procedure were explained to the patient and infor med consent obtained. Skin and subcutaneous tissues anesthetized with lidocaine. Under sonographic guidance, 5 x 18 gauge core samples were obtained of the right breast mass. Tissue given to pathology. Patient experienced no immediate complication IMPRESSION: Technically successful ultrasound-guided core biopsy of a right breast mass.
--- NOTE | 2022-02-27 10:10 | RAD REPORT ---
EXAM DESCRIPTION: US - Biopsy Lymph Node - 02/27/2022 9:30 am CLINICAL HISTORY: Right axillary lymphadenopathy COMPARISON: No comparisons FINDINGS: Preoperative diagnosis: Right axillary lymphadenopathy. Post operative diagnosis: Same. Conscious Sedation: None Fluoroscopy time: None Contrast used: None Estimated blood loss: Minimal Specimens:4 x 18 gauge core sample The right axilla was prepped and draped in the usual sterile fashion. 1% lidocaine was infiltrated in to the subcutaneous tissues for local anesthesia. Real time ultrasound scanning of the right axilla d emonstrated the enlarged lymph node. Under ultrasound guidance, using a 18-gauge, 6 cm long, 2 cm thr ow core biopsy gun, 4 specimens were obtained of this lesion and sent to pathology for evaluation. Th ere were no complications. IMPRESSION: Technically successful ultrasound-guided core biopsy of an enlarged right axillary lymph node
== END ==
LOC: DS 08:57
PROVIDERS: ATTEND Surgery
DX: N63.10 Unspecified lump in the right breast, unspecified quadrant (principal); L04.2 Acute lymphadenitis of upper limb
CPT/HCPCS: 19083; 38505; 76942

== ENCOUNTER 2022-03-14 07:23 | Day surgery (SDC) | payer OTHER ==
--- NOTE | 2022-03-12 09:36 | RAD REPORT ---
EXAM DESCRIPTION: RAD - Chest Pa And Lat (2 Views) - 03/12/2022 9:02 am CLINICAL HISTORY: Pre op pending mass removalfrom the right axilla region, history of prostate cance r COMPARISON: Portable chest 11/04/2019, two view chest 09/03/2018 TECHNIQUE: Frontal and lateral views of the chest were obtained. FINDINGS: The lungs are clear of an acute infiltrate, mass or failure finding. 2 small nodular densi ties overlie the lower lung moreira. This symmetric nodular pattern is consistent with nipple shadows. No worrisome lung parenchymal mass. Chronic interstitial pattern matches comparison. Heart size is normal and central vasculature is within normal limits. No pleural effusion or pneumothorax seen. No acute bony finding noted. No aortic abnormality. IMPRESSION: No acute cardiopulmonary process. No significant change from comparison study.
[2022-03-12 09:52] LABS: Absolute Lymphocytes (CBC) 10.8 K/uL (0.7-4.9); Hematocrit 40.6 % (39.6-49.0); Lymphocytes % 67.6 % (15.3-44.8); MPV 9.1 fL (7.6-11.3); RBC Red Blood Cell Count 4.46 M/uL (4.33-5.43)
[2022-03-12 09:53] LABS: Potassium 4.1 mmol/L (3.5-5.1)
[2022-03-12 10:49] LABS: Blood Morphology Comment NOTED (NOT SEEN); Hypochromasia 1+; Platelet Estimate ADEQ
[2022-03-12 10:51] LABS: Anisocytosis SLIGHT
[2022-03-14] MEDS ORDERED: Ringers Lactate 1,000 ML IV ONE (07:49)
[2022-03-14] MEDS ORDERED: CEFAZOLIN SODIUM 1 GM/VIAL ONE (07:49)
[2022-03-14] MEDS ORDERED: propofoL 200 MG/20 ML VIAL IV ONE (09:14)
[2022-03-14] MEDS ORDERED: MIDAZOLAM HCL 2 MG/2 ML INJ ONE (09:15)
[2022-03-14] MEDS ORDERED: FENTANYL CITR 100 MCG/2 ML ONE (09:15)
[2022-03-14] MEDS ORDERED: LIDOCAINE 2% MPF 5 ML VIAL ONE (09:16)
[2022-03-14] MEDS ORDERED: EPHEDRINE SULF 50 MG/ML VIAL ONE (10:28)
--- NOTE | 2022-03-14 10:52 | P.OP ---
Date of Service: 03/14/22 Preop diagnosis: Right axilla and right breast mass, rule out lymphoma Postop diagnosis: Same Procedure performed: Excision right axillary mass Surgeon: Dilan Ludwig MD Review Nurse: Raimundo TAVARES Estimated blood loss: Minimal Specimen: Enlarged lymph node Findings: As above Anesthesia: General Complications: None Drains: None Fluids and blood products: Nonapplicable Disposition: Recovery room Operative note: Patient brought to the OR and placed in the supine position. Patient prepped and draped in the usual sterile fashion after general anesthesia was begun. Marcaine 0.5% was infiltrated locally. A 4 cm incision was made in the right axilla. Subcutaneous tissue divided and deep to the subcutaneous tissue enlarged lymph node identified. Sharp and blunt dissection utilized and the vascular pedicles tied off with 3-0 silk sutures. The lymph node removed and sent to pathology fresh. Wound irrigated and bleeding controlled with cautery. 3-0 chromic used to reapproximate subcutaneous tissue and 4-0 chromic used to close skin. Sterile dressing applied and patient taken to recovery room in good general condition. CC: Dr. Rodas's office
[2022-03-14] MEDS ORDERED: HYDROCODONE/APAP 7.5/325 MG TAB PO PRN (10:54)
[2022-03-14] MEDS ORDERED: NALOXONE 0.4 MG/ML VIAL ONE (11:19)
[2022-03-14] MEDS: FENTANYL CITR 100 MCG/2 ML ONE ×4 (11:37→11:55)
[2022-03-14 11:58] VITALS: O2SAT 96
[2022-03-14] MEDS ORDERED: HYDROCODONE/APAP 7.5/325 MG TAB ONE (12:36)
[2022-03-14 13:25] VITALS: BP 174/86; TEMP 96.9
== END 2022-03-14 12:50 | disposition home or self-care (01) ==
LOC: OR 07:23
PROVIDERS: ATTEND Surgery
PROC: 07T50ZZ Resection of Right Axillary Lymphatic, Open Approach (ICD-10-PCS; principal; 2022-03-14 09:15)
DX: C85.94 Non-Hodgkin lymphoma, unspecified, lymph nodes of axilla and upper limb (principal); Z20.822 Contact with and (suspected) exposure to COVID-19; Z85.46 Personal history of malignant neoplasm of prostate
CPT/HCPCS: 38525; 93005; 85025; 80048; 36415; 88305; 71046; U0003; J2704; J2310; J3010 ×2; J7120; J0690; J2250

== ENCOUNTER 2022-04-13 09:55 | Day surgery (SDC) | payer OTHER ==
[2022-04-12 14:31] LABS: Absolute Lymphocytes (CBC) 9.8 K/uL (0.7-4.9); Hematocrit 40.7 % (39.6-49.0); Lymphocytes % 62.5 % (15.3-44.8); RBC Red Blood Cell Count 4.36 M/uL (4.33-5.43)
[2022-04-12 16:43] LABS: Blood Morphology Comment NOT SEEN (NOT SEEN); Platelet Estimate ADEQ; White Blood Cell Scan OK (OK)
[2022-04-13] MEDS ORDERED: Ringers Lactate 1,000 ML IV ONE (10:17)
[2022-04-13 12:13] VITALS: O2SAT 100
[2022-04-13] MEDS ORDERED: NS 0.9% VIAL 20 ML ONE (12:47)
[2022-04-13] MEDS: CEFAZOLIN SODIUM 1 GM/VIAL ONE ×2 (13:13→14:23)
[2022-04-13] MEDS: LIDOCAINE 1% MPF 5 ML VIAL ONE ×2 (13:14→14:35)
[2022-04-13] MEDS: HEPARIN 5000 UNIT/ML 1 ML VIAL ONE ×3 (13:36→14:57)
[2022-04-13] MEDS ORDERED: FENTANYL CITR 100 MCG/2 ML ONE (14:09)
[2022-04-13] MEDS ORDERED: propofoL 200 MG/20 ML VIAL IV ONE ×2 (14:09→14:43)
[2022-04-13] MEDS ORDERED: LIDOCAINE 2% MPF 5 ML VIAL ONE (14:10)
[2022-04-13] MEDS ORDERED: ONDANSETRON 4 MG/2 ML VIAL ONE (14:10)
[2022-04-13] MEDS ORDERED: HYDROCODONE/APAP 7.5/325 MG TAB PO PRN (15:09)
--- NOTE | 2022-04-13 15:15 | P.OP ---
Date of Service: 04/13/22 Preop diagnosis: Malignant lymphoma Postop diagnosis: Same Procedure performed: Right IJ Port-A-Cath placement, interpretation of intr aoperative fluoroscopy Surgeon: Dilan Ludwig MD Minute Clerk For Basic Traffic: None Estimated blood loss: Minimal Specimen: None Findings: Normal anatomy Anesthesia: MAC Complications: None Drains: None Fluids and blood products: Nonapplicable Disposition: Recovery room Operative note: Patient brought to the OR and placed in the supine position. MAC anesthesia begun and patient prepped and draped in the usual sterile fashion. Lidocaine 1% infiltrated locally. 18-gauge needle used to access the right IJ vein. Guidewire passed and position confirmed with fluoroscopy. 3 cm anterior right chest wall incision made. Subcutaneous tissue divided and a pocket created. Bleeding controlled with cautery. A tunneling device used to tunnel the catheter between the 2 wounds. Then Seldinger technique used and tip of the catheter placed in the SVC under fluoroscopy. Then the catheter cut to appropriate size. Catheter attached to the Port-A-Cath device. Port-A-Cath device attached to the subcutaneous tissue with 3-0 Vicryl. Then 3-0 chromic used to approximate subcu tissue in close skin. Port flushed with heparin and packed with heparin with good blood flow. Sterile dressing applied. Then maciej ent awakened and taken to recovery room in good general condition. Chest x-ray has been ordered. CC: Dr. Rodas's office
--- NOTE | 2022-04-13 15:38 | RAD REPORT ---
EXAM DESCRIPTION: RAD - Chest Single View - 04/13/2022 3:33 pm CLINICAL HISTORY: Status post Port-A-Cath placement COMPARISON: Chest Pa And Lat (2 Views) dated 03/12/2022; Chest Single View dated 11/04/2019; Chest Pa And Lat (2 Views) dated 09/03/2018 FINDINGS: Lines: Right IJ approach Port-A-Cath with tip overlying the proximal SVC. Lungs: No evidence of edema or pneumonia. Pleural: No significant pleural effusions or pneumothorax. Cardiac: The heart size is within normal limits. Bones: No acute fractures. Other: IMPRESSION: No acute cardiopulmonary disease.
[2022-04-13 17:12] VITALS: BP 188/81; TEMP 97
--- NOTE | 2022-04-13 18:44 | RAD REPORT ---
EXAM DESCRIPTION: RAD - Fluoroscopy <1 Hour - 04/13/2022 3:14 pm CLINICAL HISTORY: PORT A CATH COMPARISON: Breast Core BX w/US Guidance dated 02/27/2022 FINDINGS/IMPRESSION: Five intraoperative fluoroscopic images were submitted showing placement of a r ight IJ approach Port-A-Cath. The tip of the Port-A-Cath overlies the SVC. Fluoro time: 0.3 minutes 2 minutes dose: 3.9 mGy
== END 2022-04-13 16:20 | disposition home or self-care (01) ==
LOC: OR 09:55
PROVIDERS: ATTEND Surgery
PROC: 0JH60WZ Insertion of Totally Implantable Vascular Access Device into Chest Subcutaneous Tissue and Fascia, Open Approach (ICD-10-PCS; principal; 2022-04-13 12:15)
DX: C85.90 Non-Hodgkin lymphoma, unspecified, unspecified site (principal); Z20.822 Contact with and (suspected) exposure to COVID-19
CPT/HCPCS: 85025; 36415; 71045; 36561; U0003; J2704 ×2; J1644 ×2; J3010; J7120; J2405; J0690; C1788; 76000

== ENCOUNTER 2022-04-30 11:50 | Emergency (ER) | payer OTHER ==
--- OUTSIDE RECORDS SUMMARY | 2022-04-30 11:54 | XMS REPORT | Continuity of Care Document ---
:1940 Author Organization [facility] t Address [address] [place] [address] Dr. Goodwin. [address] [place] [address] Care Team Providers Name Role Phone FOUND, NOT Primary Care Physician Unavailable Doctor Unassigned, Name Attending Clinician Unavailable Henry Ochoa MD Attending Clinician Armando ANTHONY, T Attending Clinician Unavailable Only, Db Test Attending Clinician Unavailable Efren PARK Attending Clinician EFREN Attending Clinician Unavailable Darron Jones Attending Clinician Darron HDZ Attending Clinician Unavailable HENRY OCHOA Attending Clinician Unavailable HENRY OCHOA Attending Clinician Unavailable Miller_S_AH Attending Clinician Unavailable Emmanuelle SOLIS Attending Clinician Unavailable Luciana PARK, L Attending Clinician Radha-Anaayo_A_AH Attending Clinician Unavailable HENRY OCHOA Admitting Clinician Unavailable Miller_S_AH Admitting Clinician Unavailable Radha-Mbayo_A_AH Admitting Clinician Unavailable Payers Payer Name Policy Type Policy Number Effective Date Expiration Date S mindy [facility] [place] - [id number] 2019 [employer] 00:00:00 (MEDICARE REPLACEMENT/ADVANT AGE - HMO) Problems Condition Condition Condition Status Onset Resolution Last Treating Co mments Source Name Details Category Date Date Treatment Clinician Date No known No known Disease Unive rs active active ity of problems problems [facility] [place] Allergies, Adverse Reactions, Alerts Allergy Allergy Status Severity Reaction(s) Onset Inactive Treating Comm ents Source Name Type Date Date Clinician NO KNOWN Drug Active Univers ALLERGIE Class ity of [facility] [place] [facility] Social History Social Habit Start Date Stop Date Quantity Comments Source Exposure to Yes University of SARS-CoV-2 [place] [facility] (event) [facility] History SDCA University o f Alcohol Comment [place] [facility] Alcohol intake 2021-11-14 2021-11-14 Current drinker Unive rsity of 00:00:00 00:00:00 of alcohol [place] [facility] (finding) Branch Tobacco use and 2020-08-19 2020-08-19 Never used Universit y of exposure 00:00:00 00:00:00 [place] [facility] History SDOH 2020-08-19 2020-08-19 4 University o f Alcohol Frequency 00:00:00 00:00:00 [place] [facility] History [facility] 2020-08-19 2020-08-19 99 University o f Alcohol Std 00:00:00 00:00:00 [place] [facility] Drinks Branch History [facility] 2020-08-19 2020-08-19 99 University o f Alcohol Binge 00:00:00 00:00:00 [place] [facility] Sex Ass[birth year] At [birth year] [facility]00 Smoking Status Start Date Stop Date Source Unknown if ever smoked Encentuate Never smoker [facility] Branch Medications Ordered Filled Start Stop Current Ordering Indication Dosage Frequency Signature Comments Components Source Medication Medication Date Date Medication? Clinician (SIG) Name Name RIVASTIGMIN Yes [id number] 1{patch APPLY 1 Univers E 4.6 mg/24 1-24 } PATCH TO ity of hour patch 00:00: [facility] 00 DAILY. Medical CALL Branch OFFICE WHEN SCRIPT RUNS OUT. RIVASTIGMIN Yes [id number] 1{patch APPLY 1 Univers E 4.6 mg/24 1-24 } PATCH TO ity of hour patch 00:00: SKIN [place] 00 DAILY. Medical CALL Branch OFFICE WHEN SCRIPT RUNS OUT. RIVASTIGMIN Yes [id number] 1{patch APPLY 1 Univers E 4.6 mg/24 1-24 } PATCH TO ity of hour patch 00:00: SKIN [place] 00 DAILY. Medical CALL Branch OFFICE WHEN SCRIPT RUNS OUT. RIVASTIGMIN Yes [id number] 1{patch APPLY 1 Univers E 4.6 mg/24 1-24 } PATCH TO ity of hour patch 00:00: SKIN [place] 00 DAILY. Medical CALL Branch OFFICE WHEN SCRIPT RUNS OUT. RIVASTIGMIN Yes [id number] 1{patch APPLY 1 Univers E 4.6 mg/24 1-24 } PATCH TO ity of hour patch 00:00: SKIN [place] 00 DAILY. Medical CALL Branch OFFICE WHEN SCRIPT RUNS OUT. rivastigmin 2020-11 Yes [id number] 1{patch Apply 1 Univers e 4.6 mg/24 2-28 } Patch to ity of hour patch 00:00: skin [place] 00 daily. Medical Call Branch office when script runs out. rivastigmin 2020-11 Yes [id number] 1{patch Apply 1 Univers e 4.6 mg/24 2-28 } Patch to ity of hour patch 00:00: skin [place] 00 daily. Medical Call Branch office when script runs out. rivastigmin 2020-11 Yes [id number] 1{patch Apply 1 Univers e 4.6 mg/24 2-28 } Patch to ity of hour patch 00:00: skin [place] 00 daily. Medical Call Branch office when script runs out. rivastigmin 2020-11- No [id number] 1{patch Apply 1 Univers e 4.6 mg/24 2-28 -24 } Patch to ity of hour patch 00:00: 00:00 skin [place] 00 :00 daily. Medical Call Branch office when script runs out. tadalafiL 5 2020-11 Yes 5mg Take 5 mg U nivers mg tablet 2-18 by mouth ity of 00:00: daily. [place] [facility] tadalafiL 5 2020-11 Yes 5mg Take 5 mg U nivers mg tablet 2-18 by mouth ity of 00:00: daily. [place] [facility] tadalafiL 5 2020- Yes 5mg Take 5 mg U nivers mg tablet 2-18 by mouth ity of 00:00: daily. [place] [facility] tadalafiL 5 2020- Yes 5mg Take 5 mg U nivers mg tablet 2-18 by mouth ity of 00:00: daily. [place] [facility] tadalafiL 5 2020- Yes 5mg Take 5 mg U nivers mg tablet 2-18 by mouth ity of 00:00: daily. [place] 00 Medical Branch tadalafiL 5 2020- Yes 5mg Take 5 mg U nivers mg tablet 2-18 by mouth ity of 00:00: daily. [place] [facility] tadalafiL 5 2020- Yes 5mg Take 5 mg U nivers mg tablet 2-18 by mouth ity of 00:00: daily. [place] [facility] tadalafiL 5 2020- Yes 5mg Take 5 mg U nivers mg tablet 2-18 by mouth ity of 00:00: daily. [place] [facility] cetirizine 2020-0 Yes TAKE 1 Unive rs 5 mg tablet 9-13 TABLET BY ity of 00:00: [facility] EVERY DAY Medical NEEDED Branch cetirizine 2020-0 Yes TAKE 1 Unive rs 5 mg tablet 9-13 TABLET BY ity of 00:00: [facility] EVERY DAY Medical NEEDED Branch cetirizine 2020-0 Yes TAKE 1 Unive rs 5 mg tablet 9-13 TABLET BY ity of 00:00: [facility] EVERY DAY Medical NEEDED Branch cetirizine 2020-0 Yes TAKE 1 Unive rs 5 mg tablet 9-13 TABLET BY ity of 00:00: [facility] EVERY DAY Medical NEEDED Branch cetirizine 2020-0 Yes TAKE 1 Unive rs 5 mg tablet 9-13 TABLET BY ity of 00:00: [facility] EVERY DAY Medical NEEDED Branch cetirizine 2020-0 Yes TAKE 1 Unive rs 5 mg tablet 9-13 TABLET BY ity of 00:00: [facility] EVERY DAY Medical NEEDED Branch cetirizine 2020-0 Yes TAKE 1 Unive rs 5 mg tablet 9-13 TABLET BY ity of 00:00: [facility] EVERY DAY Medical NEEDED Branch cetirizine 2020-0 Yes TAKE 1 Unive rs 5 mg tablet 9-13 TABLET BY ity of 00:00: [facility] EVERY DAY Medical NEEDED Branch Pantoprazol No 40mg Twice A LEE TU e Day S (Protonix) Health 40 Mg TABEC Sucralfate No 1 Before [facility] (Carafate) Meals And S 1 Gm TAB At Bedtime Healt h Pantoprazol No 40mg [facility] e S - (Protonix) [place] 40 Mg TABEC [facility] Sucralfate No 1 [facility] (Carafate) S - 1 Gm TAB Lonnie [facility] l Immunizations Ordered Filled Immunization Date Status Comments [facility] e Immunization Name Name SARS-COV-2 COVID-19 2021-03-16 Completed Unive rsity of MODERNA VACCINE 00:00:00 [place] [facility] SARS-COV-2 COVID-19 2021-03-16 Completed Unive rsity of MODERNA VACCINE 00:00:00 [place] [facility] ical Branch SARS-COV-2 COVID-19 2021-03-16 Completed Unive rsity of MODERNA VACCINE 00:00:00 [place] [facility] ical [facility] SARS-COV-2 COVID-19 2021-03-16 Completed Unive rsity of MODERNA VACCINE 00:00:00 [place] [facility] ical Branch SARS-COV-2 COVID-19 2021-03-16 Completed Unive rsity of MODERNA VACCINE 00:00:00 [place] [facility] ical Branch SARS-COV-2 COVID-19 2021-03-16 Completed Unive rsity of MODERNA VACCINE 00:00:00 [place] [facility] ical Branch SARS-COV-2 COVID-19 2021-03-16 Completed Unive rsity of MODERNA VACCINE 00:00:00 [place] [facility] ical Branch SARS-COV-2 COVID-19 2021-03-16 Completed Unive rsity of MODERNA VACCINE 00:00:00 [place] [facility] ical Branch SARS-COV-2 COVID-19 2021-02-16 Completed Unive rsity of MODERNA VACCINE 00:00:00 [place] [facility] ical Branch SARS-COV-2 COVID-19 2021-02-16 Completed Unive rsity of MODERNA VACCINE 00:00:00 [place] [facility] ical Branch SARS-COV-2 COVID-19 2021-02-16 Completed Unive rsity of MODERNA VACCINE 00:00:00 [place] [facility] ical Branch SARS-COV-2 COVID-19 2021-02-16 Completed Unive rsity of MODERNA VACCINE 00:00:00 [place] [facility] ical Branch SARS-COV-2 COVID-19 2021-02-16 Completed Unive rsity of MODERNA VACCINE 00:00:00 [place] [facility] ical Branch SARS-COV-2 COVID-19 2021-02-16 Completed Unive rsity of MODERNA VACCINE 00:00:00 [place] [facility] ical Branch SARS-COV-2 COVID-19 2021-02-16 Completed Unive rsity of MODERNA VACCINE 00:00:00 [facility] SARS-COV-2 COVID-19 2021-02-16 Completed Unive rsity of MODERNA VACCINE 00:00:00 [facility] Vital Signs Vital Name Observation Time Observation Value Comments Source Systolic blood 2021-11-14 20:21:00 133 mm[Hg] Univer sity of pressure [facility] [place] Diastolic blood 2021-11-14 20:21:00 79 mm[Hg] Unive rsity of pressure [facility] [place] Heart rate 2021-11-14 20:18:00 65 /min [facility] Body height 2021-11-14 20:18:00 180.3 cm [facility] Body weight 2021-11-14 20:18:00 75.479 kg [facility] BMI 2021-11-14 20:18:00 23.21 kg/m2 [facility] Oxygen saturation in 2021-11-14 20:18:00 98 /min [facility] Arterial blood by [facility] Pulse oximetry Branch Body Temperature 2019-11-04 12:00:00 99.5 [degF] [employer] [facility] Heart Rate 2019-11-04 12:00:00 94 /min [facility] Respiratory rate 2019-11-04 12:00:00 20 /min [facility] BP Systolic 2019-11-04 12:00:00 158 mm[Hg] [facility] BP Diastolic 2019-11-04 12:00:00 77 mm[Hg] [facility] Rate 2019-11-02 23:46:00 75 /min [employer] [facility] Respiratory rate 2019-11-02 23:46:00 20 /min [facility] BP Systolic 2019-11-02 23:46:00 145 mm[Hg] [facility] BP Diastolic 2019-11-02 23:46:00 63 mm[Hg] [facility] Weight 2019-11-02 16:12:00 186 [lb_av] [facility] BMI (Body Mass 2019-11-02 16:12:00 25.9 kg/m2 [facility] US Health Index) Procedures Procedure Date / Time Performing Clinician Source Performed AUTHORIZATION FOR 2022-02-14 05:01:00 Doctor Unassigned, No [facility] RELEASE OF PHI Name Medical Branch X-ray of chest, two 2019-11-04 00:00:00 [facility] [employer] views Computed tomography of 2019-11-03 00:00:00 [facility] head or brain without contrast CT angiography of neck 2019-11-03 00:00:00 [facility] X-ray of chest, single 2019-11-02 00:00:00 [facility] Plan of Care Planned Activity Planned Date Details Comments Source Future Scheduled Test Bacterial blood culture [facility] [place] [code = 600-7] [facility] ital Future Scheduled Test Automated blood [facility] [place] leukocyte count [facility] (number/volume) [code = 6690-2] Future Scheduled Test Blood erythrocytes [facility] [place] automated count [facility] (number/volume) [code = 789-8] Future Scheduled Test Blood hemoglobin [facility] [place] measurement [facility] al (mass/volume) [code = 718-7] Future Scheduled Test Automated blood [facility] [place] hematocrit (volume [facility] fraction) [code = 4544-3] Future Scheduled Test Automated erythrocyte [facility] [place] mean corpuscular volume [facility] (MCV) measurement [code = 787-2] Future Scheduled Test Automated erythrocyte [facility] [place] mean corpuscular [facility] spital hemoglobin (mass per erythrocyte) [code = 785-6] Future Scheduled Test Automated erythrocyte [facility] [place] mean corpuscular [facility] spital hemoglobin concentration measurement (mass/vol [code = 786-4] Future Scheduled Test Automated erythrocyte [facility] [place] distribution width [facility] ratio [code = 788-0] Future Scheduled Test Automated blood [facility] [place] platelet count [facility] (count/volume) [code = 777-3] Future Scheduled Test Automated blood [facility] [place] platelet mean volume [facility] measurement [code = 11430-7] Future Scheduled Test Service comment 04 [facility] [place] [code = 8265-1] [facility] Test Serum or plasma sodium [facility] [place] measurement [facility] ([facility]oles/volume) [code = 2951-2] Future Scheduled Test Serum or plasma [facility] [place] potassium measurement [facility] (moles/volume) [code = 2823-3] Future Scheduled Test Serum or plasma [facility] [place] chloride measurement [facility] (moles/volume) [code = 2075-0] Future Scheduled Test Serum or plasma total [facility] [place] carbon dioxide [facility] measurement (moles/volume) [code = 8-9] Future Scheduled Test Serum or plasma anion [facility] [place] gap determination [facility] ospital (moles/volume) [code = 17908-9] Future Scheduled Test Serum or plasma urea [facility] [place] nitrogen measurement [facility] (mass/volume) [code = 3094-0] Future Scheduled Test Serum or plasma [facility] [place] creatinine measurement [facility] (mass/volume) [code = 2160-0] Future Scheduled Test GFR estimate MDRD [code [facility] = 23041-5] [facility] Future Scheduled Test Serum or plasma urea [facility] [place] nitrogen/creatinine [facility] mass ratio [code = 3097-3] Future Scheduled Test Serum or plasma glucose [facility] [place] measurement [facility] (mass/volume) [code = 2345-7] Future Scheduled Test Osmolality of Serum or [facility] [place] Plasma by calculation [facility] [code = 50571-6] Future Scheduled Test Serum or plasma calcium [facility] [place] measurement [facility] (mass/volume) [code = 36239-1] Instructions OTHER [facility] [place] Encounters Start End Encounter Admission Attending Care Care Encounter Source Date/Time Date/Time Type Type Clinicians Facility Department ID 2022-02-14 2022-02-14 Orders Doctor CYRUS [id number] Univers 00:00:00 00:00:00 Only Unassigned, JANES [id number] ity of [place] [facility] 4.2.7.2.686 Xavier as [id number] [facility] 009 Branch 2021-12-27 2021-12-27 Telephone ALBERTA Ochoa [id number] Univers 00:00:00 00:00:00 [facility] [id number] it[facility] 4.2.7.2.686 Xavier as NHI?BLEA [id number] [address] OFFICE [facility] 2021-12-19 2021-12-19 CYRUS Mckinney [id number] Univers 00:00:00 00:00:00 (Out) Sirena MARRERO [id number] it y of HOSPITAL 4.2.7.2.686 Xavier as [phone] [address] 2021-12-18 2021-12-18 Laboratory Only, Ang Db Test [facility] 1.2.8 40.114 [id number] Univers 14:00:00 14:15:00 Only Efren [facility] [id number] ity of [place] 4.2.7.2.686 Xavier as NHI?BLEA [id number] [address] 2021-12-18 2021-12-18 Outpatient R [facility] [id number] Univers 14:00:00 14:00:00 [id number] ity [facility] 2021-12-18 2021-12-18 [facility] [id number] Univers 14:00:00 14:00:00 AXEL ity [facility] 2021-12-09 2021-12-09 [facility] 1.2.840.114 [id number] Univers 00:00:00 00:00:00 [facility] [id number] ity [facility] 4.2.7.2.686 Xavier as NHI?BLEA [id number] [address] 2021-12-07 2021-12-07 CYRUS Mckinney 1.2.840.114 [id number] Univers 00:00:00 00:00:00 (Out) Sirena MARRERO [id number] it y of HOSPITAL 4.2.7.2.686 Xavier as [id number] [address] 2021-12-05 2021-12-05 Laboratory Only, Ang Db Test [facility] 1.2.8 40.114 [id number] Univers 16:00:00 16:15:00 Only Jocelyne Hdz [facility] [id number] ity of [facility] 4.2.7.2.686 Xavier as NHI?BLEA [id number] [facility] [address] [facility] OFFICE [facility] 2021-12-05 2021-12-05 Outpatient R WILDER [facility] [id number] Univers 16:00:00 16:00:00 JOCELYNE zanithya o f [facility] [place] 2021-12-05 2021-12-05 Outpatient R [facility] [id number] Univers 16:00:00 16:00:[id number] [facility] 2021-11-14 2021-11-14 Office Don [facility] [id number] Univers 14:20:00 14:42:[address] [facility] [id number] ity [facility] 4.2.7.2.686 Xavier as NHI?BLEA [id number] [place] 181512 [facility] OFFICE [facility] 2021-11-14 2021-11-14 Outpatient ARIANNE HA [facility] [id number] Univers 14:20:00 14:42:[address] [facility] 2021-10-24 2021-10-24 Outpatient ARIANNE HA [facility] RAD [id number] Univers 13:03:02 23:59:00 ARIANNE OCHOA nithya [facility] 2021-10-17 2021-10-17 Outpatient ARIANNE HA [facility] [id number] Univers 15:40:00 16:38:30 ARIANNE OCHOA nithya [facility] 2021-05-15 2021-05-15 Outpatient Naresh_S_ VFP VFP [id number] [place] 05:08:00 05:08:00 [id number] Family Practic e 2021-03-16 2021-03-16 Outpatient Rudi SOLIS [facility] [id number] Univers 12:10:00 12:05:[address] [facility] 2020-08-19 2020-08-19 Office ALBERTA Chowdhury [id number] 09:44:23 10:10:38 [facility] [id number] Surgical .2.7.2.686 [facility] [id number] es [address] 2020-01-14 2020-01-14 Outpatient Radha-Mbayo VFP VFP [id number] [facility] 06:03:00 06:03:00 _A_AH [id number] Family Practic e 2020-01-14 2020-01-14 Outpatient Radha-Mbayo VFP VFP [id number] 06:03:00 06:03:00 _A_AH 12299 Family Practic e 2020-01-14 2020-01-14 Outpatient Radha-Mbayo VFP VFP [id number] [facility] 06:03:00 06:03:00 _A_AH 91201 Family Practic e 2019-11-02 2019-11-04 Discharged SENDY Pascualsper [id number] [facility] 17:41:00 13:48:[address] 2019-11-02 2019-11-04 Discharged [facility] [place] [id number] [facility] 17:41:00 13:48:[address] 2019-10-14 2019-10-14 Inpatient E [facility] [id number] [facility] 03:16:00 00:09:00 Results Test Description Test Time Test Comments Results Result Comments Source Blood hemoglobin measurement (mass/volume) 2019-11-04 05:20: 00 Test Item Value Reference Range Interpretation Comme nts Hemoglobin (test code = 718-7) 8.3 g/dL 13.0-17.5 [facility] hematocrit (volume fraction)2019-11-04 05:20:00 Test Item Value Reference Range Interpretation Comments Hematocrit (test code = 4544-3) 25.3 % 39.0-52.5 [facility] erythrocyte mean corpuscular volume (MCV) measurement 2019-11-04 05:20:00 Test Item Value Reference Range Interpretation Comments Mean Corpuscular Volume (test code = 90.7 fL 80-94 787-2) [facility] erythrocyte mean corpuscular hemoglobin (mass per erythrocyte)2019-11-04 05:20:00 Test Item Value Reference Range Interpretation Comments Mean Corpuscular Hemoglobin (test 29.7 pg 27.0-33.0 code = 785-6) [facility] erythrocyte mean corpuscular hemoglobin concentration measurement (mass/[id number] 05:20:00 Test Item Value Reference Range Interpretation Comments Mean Corpuscular Hemoglobin Concent 32.8 g/dL 33.0-37.0 (test code = 786-4) [facility] erythrocyte distribution width [id number] 05:20:00 Test Item Value Reference Range Interpretation Comments Red Cell Distribution Width (test code 16.3 % 10.7-14.5 = 788-0) [facility]ated blood platelet count (count/volume)2019-11-04 05:20:00 Test Item Value Reference Range Interpretation Comments Platelet Count (test code = 340 10*3/uL 150-450 777-3) [facility] HealthAutomated blood platelet mean volume [id number] 05:20:00 Test Item Value Reference Range Interpretation Comments Mean Platelet Volume (test code = 10.1 fL 5.7-10.7 55585-2) [facility] HealthService comment [id number] 05:20:00 Test Item Value Reference Range Interpretation Comments Manual Differential (test code = ----- 8265-1) [facility] blood segmented neutrophils/100 [id number] 05:20:00 Test Item Value Reference Range Interpretation Comments Neutrophils % (Manual) (test code = 87 % 42-75 769-0) [facility] lymphocytes/100 [id number] 05:20:00 Test Item Value Reference Range Interpretation Comments Lymphocytes % (Manual) (test code = 9 % 21-51 737-7) [facility] HealthManual blood monocytes/100 [id number] 05:20:00 Test Item Value Reference Range Interpretation Comments Monocytes % (Manual) (test code = 2 % 1-9 744-3) [facility] count as percentage of total leukocytes 2019-11-04 05:20:00 Test Item Value Reference Range Interpretation Comments Eosinophils % (Manual) (test code = 2 % 0-7 714-6) [facility] HealthBlood platelet detection by light [id number] 05:20:00 Test Item Value Reference Range Interpretation Comments Platelet Estimate (test code = Adequate 9317-9) [facility] HealthBlood erythrocyte morphology finding [id number] 05:20:00 Test Item Value Reference Range Interpretation Comments Red Blood Cell Morphology (test code = Normal 6742-1) [facility] HealthSerum or plasma sodium measurement (moles/volume)2019-11-04 05:20:00 Test Item Value Reference Range Interpretation Comments Sodium Level (test code = 2951-2) 136 mmol/L 136-145 [facility] Health[facility]um or plasma potassium measurement (moles/volume)2019-11-04 05:20:00 Test Item Value Reference Range Interpretation Comments Potassium Level (test code = 3.1 mmol/L 3.5-5.1 2823-3) [facility] Health[facility]um or plasma chloride measurement (moles/volume)2019-11-04 05:20:00 Test Item Value Reference Range Interpretation Comments Chloride Level (test code = 104 mmol/L 98-107 2075-0) [facility] HealthSerum or plasma total carbon dioxide measurement (moles/volume) 2019-11-04 05:20:00 Test Item Value Reference Range Interpretation Comments Carbon Dioxide Level (test code = 23 mmol/L 2027-) [facility] HealthSerum or plasma anion gap determination (moles/volume)2019-11-04 05:20:00 Test Item Value Reference Range Interpretation Comments Anion Gap (test code = 34986-4) 07-05 [facility] HealthSerum or plasma urea nitrogen measurement (mass/volume)2019-11-04 05:20:00 Test Item Value Reference Range Interpretation Comments Blood Urea Nitrogen (test code = 5 mg/dL 07-13 3094-0) [facility] HealthSerum or plasma creatinine measurement (mass/volume)2019-11-04 05:20:00 Test Item Value Reference Range Interpretation Comments Creatinine (test code = 2160-0) 0.6 mg/dL 0.7-1.3 [facility] estimate [id number] 05:20:00 Test Item Value Reference Range Interpretation Comments Estimat Glomerular Filtration Rate 139 50-100 (test code = 80502-1) [facility] HealthSerum or plasma urea nitrogen/creatinine mass [id number] 05:20:00 Test Item Value Reference Range Interpretation Comments BUN/Creatinine Ratio (test code = 8 3097-3) [facility] HealthSerum or plasma glucose measurement (mass/volume)2019-11-04 05:20:00 Test Item Value Reference Range Interpretation Comments Glucose Level (test code = 2345-7) 112 mg/dL 60-100 [facility] HealthOsmolality of Serum or Plasma by [id number] 05:20:00 Test Item Value Reference Range Interpretation Comments Calculated Osmolality (test code 270 mosm/kg = 39715-9) [facility] HealthSerum or plasma calcium measurement (mass/volume)2019-11-04 05:20:00 Test Item Value Reference Range Interpretation Comments Calcium Level (test code = 82743-7) 8.1 mg/dL 8.8-10.0 [facility] (number/volume)2019-11-04 05:20:00 Test Item Value Reference Range Interpretation Comments White Blood Count (test code = 14.4 10*3/uL 4.5-11.5 6690-2) [facility] erythrocytes automated count (number/volume)2019-11-04 05:20:00 Test Item Value Reference Range Interpretation Comments Red Blood Count (test code = 2.79 10*6/uL 4.4-6.2 789-8) [facility] HealthSerum or plasma sodium measurement (moles/volume)2019-11-04 05:20:00 Test Item Value Reference Range Interpretation Comments Sodium Level (test code = 2951-2) 136 mmol/L [facility] potassium measurement (moles/volume)2019-11-04 05:20:00 Test Item Value Reference Range Interpretation Comments Potassium Level (test code = 3.1 mmol/L 2823-3) [facility] chloride measurement (moles/volume)2019-11-04 05:20:00 Test Item Value Reference Range Interpretation Comments Chloride Level (test code = 104 mmol/L 5-0) [facility] total carbon dioxide measurement (moles/volume)2019-11-04 05:20:00 Test Item Value Reference Range Interpretation Comments Carbon Dioxide Level (test code = 23 mmol/L 2028-07) [facility] plasma anion gap determination (moles/volume)2019-11-04 05:20:00 Test Item Value Reference Range Interpretation Comments Anion Gap (test code = 40588-7) 12 [facility] or plasma urea nitrogen measurement (mass/volume)2019-11-04 05:20:00 Test Item Value Reference Range Interpretation Comments Blood Urea Nitrogen (test code = 5 mg/dL 3094-0) [facility] or plasma creatinine measurement (mass/volume)2019-11-04 05:20:00 Test Item Value Reference Range Interpretation Comments Creatinine (test code = 2160-0) 0.6 mg/dL [facility] [id number] 05:20:00 Test Item Value Reference Range Interpretation Comments Estimat Glomerular Filtration Rate 139 (test code = 90865-2) [facility] or plasma urea nitrogen/creatinine mass [id number] 05:20:00 Test Item Value Reference Range Interpretation Comments BUN/Creatinine Ratio (test code = 8 3097-3) [facility] or plasma glucose measurement (mass/volume)2019-11-04 05:20:00 Test Item Value Reference Range Interpretation Comments Glucose Level (test code = 2345-7) 112 mg/dL [facility] HospitalOsmolality of Serum or Plasma by calculation 2019-11-04 05:20:00 Test Item Value Reference Range Interpretation Comments Calculated Osmolality (test code 270 mosm/kg = 00650-0) [facility] or plasma calcium measurement (mass/volume)2019-11-04 05:20:00 Test Item Value Reference Range Interpretation Comments Calcium Level (test code = 49680-0) 8.1 mg/dL [facility]Automated blood leukocyte count (number/volume)2019-11-04 05:20:00 Test Item Value Reference Range Interpretation Comments White Blood Count (test code = 14.4 10*3/uL 6690-2) [facility]Blood erythrocytes automated count (number/volume)2019-11-04 05:20:00 Test Item Value Reference Range Interpretation Comments Red Blood Count (test code = 2.79 10*6/uL 789-8) [facility]Blood hemoglobin measurement (mass/volume) 2019-11-04 05:20:00 Test Item Value Reference Range Interpretation Comments Hemoglobin (test code = 718-7) 8.3 g/dL [facility] HospitalAutomated blood hematocrit (volume fraction) 2019-11-04 05:20:00 Test Item Value Reference Range Interpretation Comments Hematocrit (test code = 4544-3) 25.3 % [facility] HospitalAutomated erythrocyte mean corpuscular volume (MCV) [id number] 05:20:00 Test Item Value Reference Range Interpretation Comments Mean Corpuscular Volume (test code = 90.7 fL 787-2) [facility] HospitalAutomated erythrocyte mean corpuscular hemoglobin (mass per erythrocyte)2019-11-04 05:20:00 Test Item Value Reference Range Interpretation Comments Mean Corpuscular Hemoglobin (test 29.7 pg code = 785-6) [facility] HospitalAutomated erythrocyte mean corpuscular hemoglobin concentration measurement (mass/[id number] 05:20:00 Test Item Value Reference Range Interpretation Comments Mean Corpuscular Hemoglobin Concent 32.8 g/dL (test code = 786-4) [facility] width [id number] 05:20:00 Test Item Value Reference Range Interpretation Comments Red Cell Distribution Width (test code 16.3 % = 788-0) [facility] (count/volume) 2019-11-04 05:20:00 Test Item Value Reference Range Interpretation Comments Platelet Count (test code = 340 10*3/uL 777-3) [facility] platelet mean volume [id number] 05:20:00 Test Item Value Reference Range Interpretation Comments Mean Platelet Volume (test code = 10.1 fL 41678-0) [facility] comment [id number] 05:20:00 Test Item Value Reference Range Interpretation Comments Manual Differential (test code = ----- 8265-1) [facility] blood segmented neutrophils/100 [id number] 05:20:00 Test Item Value Reference Range Interpretation Comments Neutrophils % (Manual) (test code = 87 % 769-0) [facility] blood lymphocytes/100 leukocytes 2019-11-04 05:20:00 Test Item Value Reference Range Interpretation Comments Lymphocytes % (Manual) (test code = 9 % 737-7) [facility] blood monocytes/100 leukocytes 2019-11-04 05:20:00 Test Item Value Reference Range Interpretation Comments Monocytes % (Manual) (test code = 2 % 744-3) [facility] blood eosinophil count as percentage of total [id number] 05:20:00 Test Item Value Reference Range Interpretation Comments Eosinophils % (Manual) (test code = 2 % 714-6) [facility] platelet detection by light microscopy 2019-11-04 05:20:00 Test Item Value Reference Range Interpretation Comments Platelet Estimate (test code = Adequate 9317-9) [facility] erythrocyte morphology finding [id number] 05:20:00 Test Item Value Reference Range Interpretation Comments Red Blood Cell Morphology (test code = Normal 6742-1) [facility] plasma phosphate measurement (mass/volume)2019-11-03 04:40:00 Test Item Value Reference Range Interpretation Comments Phosphorus Level (test code = 3.0 mg/dL 2.3-4.7 2777-1) [facility] or plasma magnesium measurement (mass/volume)2019-11-03 04:40:00 Test Item Value Reference Range Interpretation Comments Magnesium Level (test code = 1.91 mg/dL 1.60-2.60 50328-0) [facility] or plasma total bilirubin measurement (mass/volume) 2019-11-03 04:40:00 Test Item Value Reference Range Interpretation Comments Total Bilirubin (test code = 0.9 mg/dL 0.2-1.2 1975-2) [facility] or plasma aspartate aminotransferase measurement (enzymatic activity/volume)2019-11-03 04:40:00 Test Item Value Reference Range Interpretation Comments Aspartate Amino Transf (AST/SGOT) 26 U/L 5-34 (test code = 1920-8) [facility] or plasma alanine aminotransferase measurement (enzymatic activity/volume)2019-11-03 04:40:00 Test Item Value Reference Range Interpretation Comments Alanine Aminotransferase (ALT/SGPT) 13 U/L 0-55 (test code = 1742-6) [facility]Serum or plasma protein measurement (mass/volume)2019-11-03 04:40:00 Test Item Value Reference Range Interpretation Comments Total Protein (test code = 2885-2) 6.1 g/dL 5.8-7.6 [facility]Serum or plasma albumin measurement (mass/volume)2019-11-03 04:40:00 Test Item Value Reference Range Interpretation Comments Albumin (test code = 1751-7) 3.3 g/dL 3.2-4.7 [facility] HealthSerum globulin measurement by calculation (mass/volume)2019-11-03 04:40:00 Test Item Value Reference Range Interpretation Comments Globulin (test code = 97331-6) 2.8 g/dL [facility] HealthSerum or plasma albumin/globulin mass [id number] 04:40:00 Test Item Value Reference Range Interpretation Comments Albumin/Globulin Ratio (test code = 1.2 1759-0) [facility] HealthSerum or plasma alkaline phosphatase measurement (enzymatic activity/volume)2019-11-03 04:40:00 Test Item Value Reference Range Interpretation Comments Alkaline Phosphatase (test code = 71 U/L 40-150 6768-6) [facility] HealthSerum or plasma phosphate measurement (mass/volume)2019-11-03 04:40:00 Test Item Value Reference Range Interpretation Comments Phosphorus Level (test code = 3.0 mg/dL 2777-1) [facility] magnesium measurement (mass/volume)2019-11-03 04:40:00 Test Item Value Reference Range Interpretation Comments Magnesium Level (test code = 1.91 mg/dL 43071-6) [facility] plasma total bilirubin measurement (mass/volume)2019-11-03 04:40:00 Test Item Value Reference Range Interpretation Comments Total Bilirubin (test code = 0.9 mg/dL 1975-2) [facility] or plasma aspartate aminotransferase measurement (enzymatic activity/volume)2019-11-03 04:40:00 Test Item Value Reference Range Interpretation Comments Aspartate Amino Transf (AST/SGOT) 26 U/L (test code = 1920-8) [facility] or plasma alanine aminotransferase measurement (enzymatic activity/volume)2019-11-03 04:40:00 Test Item Value Reference Range Interpretation Comments Alanine Aminotransferase (ALT/SGPT) 13 U/L (test code = 1742-6) [facility] or plasma protein measurement (mass/volume)2019-11-03 04:40:00 Test Item Value Reference Range Interpretation Comments Total Protein (test code = 2885-2) 6.1 g/dL [facility] or plasma albumin measurement (mass/volume)2019-11-03 04:40:00 Test Item Value Reference Range Interpretation Comments Albumin (test code = 1751-7) 3.3 g/dL [facility] globulin measurement by calculation (mass/volume)2019-11-03 04:40:00 Test Item Value Reference Range Interpretation Comments Globulin (test code = 13089-0) 2.8 g/dL [facility] or plasma albumin/globulin mass ratio 2019-11-03 04:40:00 Test Item Value Reference Range Interpretation Comments Albumin/Globulin Ratio (test code = 1.2 1759-0) [facility] or plasma alkaline phosphatase measurement (enzymatic activity/volume)2019-11-03 04:40:00 Test Item Value Reference Range Interpretation Comments Alkaline Phosphatase (test code = 71 U/L 6768-6) [facility] HospitalB[facility] blood [id number] 18:05:00 Test Item Value Reference Range Interpretation Comments Blood Culture (test code No growth in 24 hrs. = 600-7) [facility] [id number] 18:05:00 Test Item Value Reference Range Interpretation Comments Blood Culture (test code No growth in 24 hrs. = 600-7) [facility] blood lactic acid measurement (moles/volume)2019-11-02 18:04:00 Test Item Value Reference Range Interpretation Comments Bedside Lactic Acid Venous (test 1.18 mmol/L 0.50-2.20 code = 2519-7) [facility] blood lactic acid measurement (moles/volume)2019-11-02 18:04:00 Test Item Value Reference Range Interpretation Comments Bedside Lactic Acid Venous (test 1.18 mmol/L code = 2519-7) [facility] whole blood sodium measurement (moles/volume)2019-11-02 16:35:00 Test Item Value Reference Range Interpretation Comments Bedside Sodium (test code = 134 mmol/L 136-145 19625-9) [facility] whole blood potassium measurement (moles/volume)2019-11-02 16:35:00 Test Item Value Reference Range Interpretation Comments Bedside Potassium (test code = 2.9 mmol/L 3.5-5.1 14195-2) [facility] whole blood chloride measurement (moles/volume)2019-11-02 16:35:00 Test Item Value Reference Range Interpretation Comments Bedside Chloride (test code = 101 mmol/L 100-112 09583-8) [facility] whole blood total carbon dioxide measurement (moles/volume)2019-11-02 16:35:00 Test Item Value Reference Range Interpretation Comments Bedside Total CO2 (test code = 22.0 mmol/L 24.0-33.0 2026-1) [facility] whole blood urea nitrogen (BUN) measurement (mass/volume) 2019-11-02 16:35:00 Test Item Value Reference Range Interpretation Comments Bedside Blood Urea Nitrogen (test 5 mg/dL 8 code = 69640-3) [facility] creatinine measurement (mass/volume)2019-11-02 16:35:00 Test Item Value Reference Range Interpretation Comments Bedside Creatinine (test code = 0.7 mg/dL 0.9-1.5 30929-0) [facility] whole blood glucose measurement (mass/volume)2019-11-02 16:35:00 Test Item Value Reference Range Interpretation Comments Bedside Glucose (test code = 105 mg/dL 60-100 33944-3) [facility] blood ionized calcium measurement (moles/volume)2019-11-02 16:35:00 Test Item Value Reference Range Interpretation Comments Bedside Whole Blood Ionized 1.04 mmol/L 1.12-1.32 Calcium (test code = 1994-3) [facility] anion [id number] 16:35:00 Test Item Value Reference Range Interpretation Comments Bedside Anion Gap (test code = 10928-0) 16 8-18 [facility] [id number] 16:35:00 Test Item Value Reference Range Interpretation Comments Estimat Glomerular Filtration Rate 117 50-100 (test code = 98558-0) [facility] blood hemoglobin measurement (mass/volume)2019-11-02 16:35:00 Test Item Value Reference Range Interpretation Comments Bedside Hemoglobin (test code = 10.2 g/dL 13.0-17.5 90924-5) [facility] blood hematocrit (volume fraction)2019-11-02 16:35:00 Test Item Value Reference Range Interpretation Comments Bedside Hematocrit (test code = 30.0 % 40.0-53.0 26791-6) [facility] whole blood sodium measurement (moles/volume)2019-11-02 16:35:00 Test Item Value Reference Range Interpretation Comments Bedside Sodium (test code = 134 mmol/L 78459-2) [facility] whole blood potassium measurement (moles/volume)2019-11-02 16:35:00 Test Item Value Reference Range Interpretation Comments Bedside Potassium (test code = 2.9 mmol/L 21224-9) [facility] whole blood chloride measurement (moles/volume)2019-11-02 16:35:00 Test Item Value Reference Range Interpretation Comments Bedside Chloride (test code = 101 mmol/L 81062-8) [facility] whole blood total carbon dioxide measurement (moles/volume)2019-11-02 16:35:00 Test Item Value Reference Range Interpretation Comments Bedside Total CO2 (test code = 22.0 mmol/L 2026-1) [facility] whole blood urea nitrogen (BUN) measurement (mass/volume)2019-11-02 16:35:00 Test Item Value Reference Range Interpretation Comments Bedside Blood Urea Nitrogen (test 5 mg/dL code = 76797-6) [facility] creatinine measurement (mass/volume) 2019-11-02 16:35:00 Test Item Value Reference Range Interpretation Comments Bedside Creatinine (test code = 0.7 mg/dL 45578-6) [facility] glucose measurement (mass/volume)2019-11-02 16:35:00 Test Item Value Reference Range Interpretation Comments Bedside Glucose (test code = 105 mg/dL 28073-1) [facility] calcium measurement (moles/volume)2019-11-02 16:35:00 Test Item Value Reference Range Interpretation Comments Bedside Whole Blood Ionized 1.04 mmol/L Calcium (test code = 1994-3) [facility] anion [id number] 16:35:00 Test Item Value Reference Range Interpretation Comments Bedside Anion Gap (test code = 24165-2) 16 [facility] [id number] 16:35:00 Test Item Value Reference Range Interpretation Comments Estimat Glomerular Filtration Rate 117 (test code = 56119-0) [facility] blood hemoglobin measurement (mass/volume)2019-11-02 16:35:00 Test Item Value Reference Range Interpretation Comments Bedside Hemoglobin (test code = 10.2 g/dL 25915-4) [facility] blood hematocrit (volume fraction) 2019-11-02 16:35:00 Test Item Value Reference Range Interpretation Comments Bedside Hematocrit (test code = 30.0 % 41741-8) [facility] pH measurement by automated test strip 2019-11-02 16:30:00 Test Item Value Reference Range Interpretation Comments Urine pH (test code = 56562-6) 7.0 5.0-8.0 [facility] HealthSpecific gravity of Urine by Automated test [id number] 16:30:00 Test Item Value Reference Range Interpretation Comments Urine Specific Poth (test code = 1.005 1.005-1.030 08873-2) [facility] by automated test strip (mass/volume) 2019-11-02 16:30:00 Test Item Value Reference Range Interpretation Comments Urine Protein (test code = Negative mg/dL Negative * 18645-8) [facility] HealthUrine glucose measurement by automated test strip (mass/volume) 2019-11-02 16:30:00 Test Item Value Reference Range Interpretation Comments Urine Glucose (UA) (test code Negative mg/dL Negative * = 60607-6) [facility] ketones measurement by automated test strip (mass/volume) 2019-11-02 16:30:00 Test Item Value Reference Range Interpretation Comments Urine Ketones (test code = Negative mg/dL Negative * 90538-3) [facility] erythrocytes count by automated test strip (number/volume) 2019-11-02 16:30:00 Test Item Value Reference Range Interpretation Comments Urine Occult Blood (test code = Negative Negative * 91783-9) [facility] HealthUrine nitrite detection by automated test [id number] 16:30:00 Test Item Value Reference Range Interpretation Comments Urine Nitrite (test code = 23230-9) Negative Negative [facility]rine total bilirubin measurement by automated test strip (mass/volume)2019-11-02 16:30:00 Test Item Value Reference Range Interpretation Comments Urine Bilirubin (test code = Negative mg/dL Negative 47354-8) [facility] HealthUrine urobilinogen measurement by automated test strip (mass/volume)2019-11-02 16:30:00 Test Item Value Reference Range Interpretation Comments Urine Urobilinogen (test code Negative mg/dL 0.0-1.0 = 80845-7) [facility] HealthUrine leukocytes count by automated test strip (number/volume) 2019-11-02 16:30:00 Test Item Value Reference Range Interpretation Comments Urine Leukocyte Esterase Negative {Freddy}/uL Negative (test code = 25971-2) [facility] HealthMicroscopic examination of [id number] 16:30:00 Test Item Value Reference Range Interpretation Comments Microscopic Urinalysis (T) (test code Not Ind = 73782-1) [facility] HealthService comment 16:30:00 Test Item Value Reference Range Interpretation Comments Urinalysis Comment (test * See_Comment [A utomated message] The code = 8262-8) system which generated this result tra nsmitted reference range : *. The reference range was not used to interpr et this result as normal/abnormal . [facility] [id number] 16:30:00 Test Item Value Reference Range Interpretation Comments Urine Source (test code = 75060-6) URINE [facility] HealthColor of Urine by [id number] 16:30:00 Test Item Value Reference Range Interpretation Comments Urine Color (test code = 35477-6) Lt Yellow Yel-Kaylah * [facility] HealthUrine clarity [id number] 16:30:00 Test Item Value Reference Range Interpretation Comments Urine Appearance (test code = 98864-6) Clear Clear * [facility] total bilirubin measurement by automated test strip (mass/volume)2019-11-02 16:30:00 Test Item Value Reference Range Interpretation Comments Urine Bilirubin (test code = Negative mg/dL 59238-5) [facility] urobilinogen measurement by automated test strip (mass/volume)2019-11-02 16:30:00 Test Item Value Reference Range Interpretation Comments Urine Urobilinogen (test code Negative mg/dL = 71533-7) [facility] leukocytes count by automated test strip (number/volume)2019-11-02 16:30:00 Test Item Value Reference Range Interpretation Comments Urine Leukocyte Esterase Negative {Freddy}/uL (test code = 65386-9) [facility]Microscopic examination of [id number] 16:30:00 Test Item Value Reference Range Interpretation Comments Microscopic Urinalysis (T) (test code Not Ind = 79592-4) [facility] comment 16:30:00 Test Item Value Reference Range Interpretation Comments Urinalysis Comment (test code = 8262-8) * [facility] HospitalUrinalysis specimen collection method 2019-11-02 16:30:00 Test Item Value Reference Range Interpretation Comments Urine Source (test code = 52739-4) URINE [facility] HospitalColor of Urine by [id number] 16:30:00 Test Item Value Reference Range Interpretation Comments Urine Color (test code = 56631-0) Lt Yellow [facility] HospitalUrine clarity [id number] 16:30:00 Test Item Value Reference Range Interpretation Comments Urine Appearance (test code = 41575-2) Clear [facility] pH measurement by automated test strip 2019-11-02 16:30:00 Test Item Value Reference Range Interpretation Comments Urine pH (test code = 87837-5) 7.0 [facility]pecific gravity of Urine by Automated test [id number] 16:30:00 Test Item Value Reference Range Interpretation Comments Urine Specific Poth (test code = 1.005 28305-5) [facility] protein measurement by automated test strip (mass/volume)2019-11-02 16:30:00 Test Item Value Reference Range Interpretation Comments Urine Protein (test code = Negative mg/dL 85434-4) [facility] glucose measurement by automated test strip (mass/volume)2019-11-02 16:30:00 Test Item Value Reference Range Interpretation Comments Urine Glucose (UA) (test code Negative mg/dL = 92503-4) [facility] ketones measurement by automated test strip (mass/volume)2019-11-02 16:30:00 Test Item Value Reference Range Interpretation Comments Urine Ketones (test code = Negative mg/dL 39797-9) [facility] erythrocytes count by automated test strip (number/volume)2019-11-02 16:30:00 Test Item Value Reference Range Interpretation Comments Urine Occult Blood (test code = Negative 60458-3) [facility] nitrite detection by automated test [id number] 16:30:00 Test Item Value Reference Range Interpretation Comments Urine Nitrite (test code = 20378-0) Negative [facility]
--- NOTE | 2022-04-30 13:20 | RAD REPORT ---
EXAM DESCRIPTION: CT - C[facility]OC - 04/30/2022 1:10 pm CLINICAL HISTORY: Trauma, head and neck injury. fall COMPARISON: Head C Spine Mpr Wo Con dated 11/09/2019 TECHNIQUE: Axial 5 mm thick images of the head were obtained. Axial 2 mm thick images of the cervical spine were obtained with sagittal and coronal reconstruction images generated and reviewed. All CT scans are performed using dose optimization technique as appropriate and may include automated exposure control or mA/KV adjustment according to patient size. FINDINGS: CT HEAD WITHOUT CONTRAST: No acute hemorrhage, hydrocephalus or extra-axial collection is identified.Mild generalized brain atr ophy is present with mild periventricular and deep white matter chronic microvascular ischemic change s.No areas of brain edema or midline shift. The paranasal sinuses and mastoids are clear.The calvarium is intact. CT CERVICAL SPINE WITHOUT CONTRAST: No fracture or subluxation.Moderate lower cervical degenerative changes are present. 4 mm degenerativ e retrolisthesis of C6 on 7 is present. The odontoid is normal and the lateral masses are symmetric.N o prevertebral soft tissues swelling is identified. IMPRESSION: No acute intracranial or cervical spine findings. Moderate lower cervical spondylosis.
--- NOTE | 2022-04-30 14:30 | EDPHYS ---
Physician Documentation [facility] Name: Roxane Chávez Age: 81 yrs Sex: Male : 1940 Arrival Date: 04/30/2022 Time: 11:53 Bed 19 Private MD: Bridger Schumacher R ED Physician Luigi Gonsalves HPI: 04/30 12:45 This 81 yrs old Male presents to ER via Ambulatory with complaints of Fall cp Injury. 12:45 Details of fall: The patient fell from an upright position, while standing. Onset: The cp symptoms/episode began/occurred today. Associated injuries: The patient sustained no obvious injury. Patient is a 81-year-old male accompanied to the ER by his with complaints of falling this morning. reports patient's legs gave out causing him to fall to the floor. No injuries but reports patient has had multiple falls over the past several weeks with one episode in which he did hit his head. Patient's only complaint today is pain in the area of his right upper chest port. Historical: - Allergies: 12:39 Ciprofloxacin; vg1 - Home Meds: 12:39 Benadryl 25 mg Oral cap 2 caps once daily [Active]; Zyrtec Oral [Active]; Naproxen Oral vg1 [Active]; losartan oral [Active]; Tylenol #3 Oral [Active]; Hydroxyzine Oral [Active]; - PMHx: 12:39 GERD; Hypertension; Prostate Cancer; vg1 - Immunization history:: Client reports receiving the 2nd dose of the Covid vaccine. - Social history:: Smoking status: Patient denies any tobacco usage or history of. ROS: 12:50 Constitutional: Negative for body aches, chills, fever, poor PO intake. cp 12:50 Eyes: Negative for injury, pain, redness, and discharge. cp 12:50 ENT: Negative for drainage from ear(s), ear pain, sore throat, difficulty swallowing, difficulty handling secretions. 12:50 Cardiovascular: Negative for edema, palpitations. 12:50 Respiratory: Negative for cough, shortness of breath, wheezing. 12:50 Abdomen/GI: Negative for abdominal pain, vomiting, diarrhea, constipation. 12:50 Back: Negative for pain at rest, pain with movement. 12:50 : Negative for urinary symptoms. 12:50 MS/extremity: Negative for injury or acute deformity. 12:50 Neuro: Negative for altered mental status, dizziness, headache, loss of consciousness, syncope, weakness. 12:50 All other systems are negative. Exam: 12:55 Head/Face: Normocephalic, atraumatic. cp 12:55 Constitutional: The patient appears in no acute distress, alert, awake, non-diaphoretic, non-toxic, well developed, well nourished. 12:55 Eyes: Periorbital structures: appear normal, Pupils: equal, round, and reactive to light and accomodation, Extraocular movements: intact throughout, Conjunctiva: normal, no exudate, no injection, Lids and lashes: appear normal, bilaterally. 12:55 ENT: External ear(s): are unremarkable, Nose: is normal, Mouth: Lips: moist, Oral mucosa: moist, Posterior pharynx: Airway: no evidence of obstruction, patent. 12:55 Neck: C-spine: vertebral tenderness, is not appreciated, crepitus, is not appreciated, ROM/movement: is normal, is supple, without pain, no range of motions limitations. 12:55 Chest/axilla: Inspection: normal, Palpation: is normal, no crepitus, no tenderness. 12:55 Cardiovascular: Rate: bradycardic, Rhythm: regular, Edema: is not appreciated, JVD: is not appreciated. 12:55 Respiratory: the patient does not display signs of respiratory distress, Respirations: normal, no use of accessory muscles, no retractions, labored breathing, is not present, Breath sounds: are clear throughout, no decreased breath sounds, no stridor, no wheezing. 12:55 Abdomen/GI: Inspection: abdomen appears normal, Palpation: abdomen is soft and non-tender, in all quadrants. 12:55 Neuro: Orientation: to person, place \T\ time. Mentation: able to follow commands, Motor: moves all fours, strength is normal, Sensation: is normal. Vital Signs: 12:34 BP 105 / 57; Pulse 50; Resp 16; Temp 97.7; Pulse Ox 97% on R/A; Weight 63.5 kg; Height vg1 5 ft. 10 in. (177.80 cm); Pain 0/10; 14:23 BP 136 / 67; Pulse 51; Pulse Ox 100% on R/A; ap3 12:34 Body Mass Index 20.09 (63.50 kg, 177.80 cm) vg1 MDM: 14:16 Patient medically screened. cp 14:20 Differential diagnosis: closed head injury, contusion, fracture, multiple trauma. cp 14:29 Data reviewed: vital signs, nurses notes, radiologic studies, CT scan. cp 14:29 Counseling: I had a detailed discussion with the patient and/or guardian regarding: the cp historical points, exam findings, and any diagnostic results supporting the discharge/admit diagnosis, radiology results, to return to the emergency department if symptoms worsen or persist or if there are any questions or concerns that arise at home. 04/30 12:35 Order name: CT Head C Spine; Complete Time: 14:17 cp 04/30 14:18 Interpretation: Reviewed report. cp Administered Medications: No medications were administered Disposition: 19:06 Co-signature as Attending Physician, Luigi Gonsalves MD. rn Disposition Summary: 04/30/22 14:29 Discharge Ordered Location: Home cp Problem: new cp Symptoms: have improved cp Condition: Stable cp Diagnosis - Fall on same level, unspecified cp Followup: cp - With: Private Physician - When: 1 - 2 days - Reason: Recheck today's complaints Discharge Instructions: - Discharge Summary Sheet cp - Fall Prevention in the Home, Adult cp Forms: - Medication Reconciliation Form cp - Thank You Letter cp - Antibiotic Education cp - Prescription Opioid Use cp Signatures: Dispatcher [employer] EDLuigi Vallecillo MD MD rn Suman Irwin PA PA cp Garcia, Victoria, RN RN vg1
--- NOTE | 2022-04-30 14:30 | ER ---
Nurse's Notes [facility] Name: Roxane Chávez Age: 81 yrs Sex: Male : 1940 Arrival Date: 04/30/2022 Time: 11:53 Bed 19 Private MD: Bridger Schumacher R Diagnosis: Fall on same level, unspecified Presentation: 04/30 12:34 Chief complaint: Spouse and/or significant other states: Pt has been falling at least vg1 once a week for about "a month"; Stated "this past week he has been falling and today he fell twice and landed on his knees" Also stated "I cant remember which day but last week he did hit his head". Denies LOC or NV. Coronavirus screen: Vaccine status: Patient reports receiving the 2nd dose of the covid vaccine. Client denies travel out of the [place] in the last 14 days. Ebola Screen: Patient denies exposure to infectious person. Patient denies travel to an Ebola-affected area in the 21 days before illness onset. Initial Sepsis Screen: Does the patient meet any 2 criteria? No. Patient's initial sepsis screen is negative. Does the patient have a suspected source of infection? No. Patient's initial sepsis screen is negative. Risk Assessment: Do you want to hurt yourself or someone else? Patient reports no desire to harm self or others. Onset of symptoms was April 30, 2022. 12:34 Method Of Arrival: Ambulatory vg1 12:34 Acuity: TITO 3 vg1 Triage Assessment: 12:39 General: Appears in no apparent distress. uncomfortable, Behavior is calm, cooperative. vg1 Pain: Denies pain. 12:39 Neuro: Grubbs Agitation-Sedation Scale (RASS): 0 - Alert and Calm Level of vg1 Consciousness is awake, alert, obeys commands, Oriented to person, place, time, situation. Derm:. Musculoskeletal: Circulation, motion, and sensation intact. Historical: - Allergies: 12:39 Ciprofloxacin; vg1 - Home Meds: 12:39 Benadryl 25 mg Oral cap 2 caps once daily [Active]; Zyrtec Oral [Active]; Naproxen Oral vg1 [Active]; losartan oral [Active]; Tylenol #3 Oral [Active]; Hydroxyzine Oral [Active]; - PMHx: 12:39 GERD; Hypertension; Prostate Cancer; vg1 - Immunization history:: Client reports receiving the 2nd dose of the Covid vaccine. - Social history:: Smoking status: Patient denies any tobacco usage or history of. Screenin:38 Abuse screen: Denies threats or abuse. Nutritional screening: No deficits noted. ap3 Tuberculosis screening: No symptoms or risk factors identified. Fall Risk Fall in past 12 months (25 points). Vital Signs: 12:34 BP 105 / 57; Pulse 50; Resp 16; Temp 97.7; Pulse Ox 97% on R/A; Weight 63.5 kg; Height vg1 5 ft. 10 in. (177.80 cm); Pain 0/10; 14:23 BP 136 / 67; Pulse 51; Pulse Ox 100% on R/A; ap3 12:34 Body Mass Index 20.09 (63.50 kg, 177.80 cm) vg1 ED Course: 11:53 Patient arrived in ED. mr 11:53 Bridger Schumacher MD is Private Physician. mr 12:04 Suman Irwin PA is PHCP. cp 12:04 Luigi Gonsalves MD is Attending Physician. cp 12:39 Triage completed. vg1 12:39 Arm band placed on. vg1 13:11 CT Head C Spine In Process Unspecified. EDMD 14:13 Halle Tan, RN is Primary Nurse. ap3 14:38 Patient has correct armband on for positive identification. Bed in low position. Call ap3 light in reach. 14:38 No provider procedures requiring assistance completed. Patient did not have IV access ap3 during this emergency room visit. Administered Medications: No medications were administered Medication: 14:39 VIS not applicable for this client. ap3 Outcome: 14:29 Discharge ordered by . cp 14:39 Discharged to home ambulatory, with family. ap3 14:39 Condition: good 14:39 Discharge instructions given to patient, family, Instructed on discharge instructions, follow up and referral plans. Demonstrated understanding of instructions, follow-up care. 14:39 Patient left the ED. ap3 Signatures: Dispatcher [employer] EDMD GutierrezMichaela mr Suman Irwin PA PA cp Prokisch, Amanda, RN RN ap3 Rossi Watkins RN RN vg1
[2022-04-30 14:46] VITALS: TEMP 97.7
[2022-04-30 14:47] VITALS: BP 136/67; O2SAT 100
== END 2022-04-30 14:39 | disposition home or self-care (01) ==
LOC: ER 11:50
DX: T14.90XA Injury, unspecified, initial encounter (principal); W18.30XA Fall on same level, unspecified, initial encounter; Y93.9 Activity, unspecified; Y92.9 Unspecified place or not applicable; I10 Essential (primary) hypertension; K21.9 Gastro-esophageal reflux disease without esophagitis; Z85.46 Personal history of malignant neoplasm of prostate
CPT/HCPCS: 70450; 72125; 99283

== ENCOUNTER 2022-10-22 17:59 | Emergency (ER) | payer OTHER ==
--- OUTSIDE RECORDS SUMMARY | 2022-10-22 18:04 | XMS REPORT | Continuity of Care Document ---
:1940 Author Organization [facility] t Address [facility] [place] [address] Care Team Providers Name Role Phone FOUND, PCP NOT Primary Care Physician Unavailable Doctor Unassigned, [place] Attending Clinician Unavailable Buddy Ochoa MD Attending Clinician Sirena Roberts RN Attending Clinician Unavailable Only, Ang Db Test Attending Clinician Unavailable Axel Schwartz MD Attending Clinician AXEL SCHWARTZ Attending Clinician Unavailable Jocelyne Jones Attending Clinician JOCELYNE HERRERA Attending Clinician Unavailable Lab, Ang - Db Attending Clinician Unavailable BUDDY OCHOA Attending Clinician Unavailable BUDDY OCHOA Attending Clinician Unavailable PATRICE KEENAN Attending Clinician Unavailable Miller_S_AH Attending Clinician Unavailable DENNIS SOLIS Attending Clinician Unavailable Yelena Landry MD Attending Clinician YELENA LANDRY Attending Clinician Unavailable Radha-Mbayo_A_AH Attending Clinician Unavailable BUDDY OCHOA Admitting Clinician Unavailable Miller_S_AH Admitting Clinician Unavailable Radha-Mbayo_A_AH Admitting Clinician Unavailable Payers Payer Name Policy Type Policy Number Effective Date Expiration Date S [facility] OF [place] - [id number] 2019 [facility] 00:00:00 (MEDICARE REPLACEMENT/ADVANT AGE - HMO) Problems Condition Condition Condition Status Onset Resolution Last Treating Co mments Source Name Details Category Date Date Treatment Clinician Date No known No known Disease Unive rs active active ity of problems problems [facility] Allergies, Adverse Reactions, Alerts Allergy Allergy Status Severity Reaction(s) Onset Inactive Treating Comm ents Source Name Type Date Date Clinician NO KNOWN Drug Active Univers ALLERGIE Class ity of S [place] [facility] [place] Social History Social Habit Start Date Stop Date Quantity Comments Source Exposure to Yes University of SARS-CoV-2 [place] [facility] (event) Branch History SDAR University o f Alcohol Comment [place] [facility] Alcohol intake 2021-11-14 2021-11-14 Current drinker Unive rsity of 00:00:00 00:00:00 of alcohol [place] [facility] (finding) Branch Tobacco use and 2020-08-19 2020-08-19 Never used Universit y of exposure 00:00:00 00:00:00 [place] [facility] History SDOH 2020-08-19 2020-08-19 4 University o f Alcohol Frequency 00:00:00 00:00:00 [place] [facility] History SDOH 2020-08-19 2020-08-19 99 University o f Alcohol Std 00:00:00 00:00:00 [place] [facility] Drinks [facility] History SDOH 2020-08-19 2020-08-19 99 University o f Alcohol Binge 00:00:00 00:00:00 [place] [facility] Sex [birth year] Male [facility] 00:00:00 00:00:00 Smoking Status Start Date Stop Date Source Unknown if ever smoked [facility] Never smoker [facility] Branch Medications Ordered Filled Start Stop Current Ordering Indication Dosage Frequency Signature Comments Components Source Medication Medication Date Date Medication? Clinician (SIG) Name Name RIVASTIGMIN Yes [id number] 1{patch APPLY 1 Univers E 4.6 mg/24 1-24 } PATCH TO ity of hour patch [facility] Medical CALL Branch OFFICE WHEN SCRIPT RUNS OUT. RIVASTIGMIN Yes [id number] 1{patch APPLY 1 Univers E 4.6 mg/24 1-24 } PATCH TO ity of hour patch 00:00: SKIN [place] 00 DAILY. Medical CALL Branch OFFICE WHEN SCRIPT RUNS OUT. RIVASTIGMIN Yes [id number] 1{patch APPLY 1 Univers E 4.6 mg/24 1-24 } PATCH TO ity of hour patch 00:00: SKIN [place] 00 DAILY. Medical CALL Branch OFFICE WHEN SCRIPT RUNS OUT. RIVASTIGMIN Yes [id number] 1{patch APPLY 1 Univers E 4.6 mg/24 1-24 } PATCH TO ity of hour patch 00:00: SKIN [place] 00 DAILY. Medical CALL Branch OFFICE WHEN SCRIPT RUNS OUT. RIVASTIGMIN Yes [id number] 1{patch APPLY 1 Univers E 4.6 mg/24 1-24 } PATCH TO ity of hour patch 00:00: SKIN [place] 00 DAILY. Medical CALL Branch OFFICE WHEN SCRIPT RUNS OUT. rivastigmin 2020-11 Yes [id number] 1{patch Apply 1 Univers e 4.6 mg/24 2-28 } Patch to ity of hour patch 00:00: skin [place] 00 daily. Medical Call Branch office when script runs out. rivastigmin 2020-11 Yes [id number] 1{patch Apply 1 Univers e 4.6 mg/24 2-28 } Patch to ity of hour patch 00:00: skin [place] 00 daily. Medical Call Branch office when script runs out. rivastigmin 2020-11 Yes [id number] 1{patch Apply 1 Univers e 4.6 mg/24 2-28 } Patch to ity of hour patch 00:00: skin [place] 00 daily. Medical Call Branch office when script runs out. rivastigmin 2020-11 No [id number] 1{patch Apply 1 Univers e 4.6 mg/24 2-28 -24 } Patch to ity of hour patch 00:00: 00:00 skin [place] 00 :00 daily. Medical Call Branch office when script runs out. tadalafiL 5 2020-11 Yes 5mg Take 5 mg U nivers mg tablet 2-18 by mouth ity of 00:00: daily. [place] [facility] tadalafiL 5 2020-11 Yes 5mg Take 5 mg U nivers mg tablet 2-18 by mouth ity of 00:00: daily. [place] [facility] tadalafiL 5 2020-11 Yes 5mg Take 5 mg U nivers mg tablet 2-18 by mouth ity of 00:00: daily. [place] [facility] tadalafiL 5 2020-11 Yes 5mg Take 5 mg U nivers mg tablet 2-18 by mouth ity of 00:00: daily. [place] [facility] tadalafiL 5 2020-11 Yes 5mg Take 5 mg U nivers mg tablet 2-18 by mouth ity of 00:00: daily. Medical Branch tadalafiL 5 2020- Yes 5mg Take 5 mg U nivers mg tablet 2-18 by mouth ity of 00:00: daily. [place] [facility] tadalafiL 5 2020- Yes 5mg Take 5 mg U nivers mg tablet 2-18 by mouth ity of 00:00: daily. [place] [facility] tadalafiL 5 2020-11 Yes 5mg Take 5 mg U nivers mg tablet 2-18 by mouth ity of 00:00: daily. [place] [facility] cetirizine 2020-0 Yes TAKE 1 Unive rs 5 mg tablet 9-13 TABLET BY ity of 00:00: [place] EVERY DAY Medical NEEDED Branch cetirizine 2020-0 Yes TAKE 1 Unive rs 5 mg tablet 9-13 TABLET BY ity of 00:00: [place] EVERY DAY Medical NEEDED Branch cetirizine 2020-0 Yes TAKE 1 Unive rs 5 mg tablet 9-13 TABLET BY ity of 00:00: [facility] EVERY DAY Medical NEEDED Branch cetirizine 2020-0 Yes TAKE 1 Unive rs 5 mg tablet 9-13 TABLET BY ity of 00:00: [place] EVERY DAY Medical NEEDED Branch cetirizine 2020-0 Yes TAKE 1 Unive rs 5 mg tablet 9-13 TABLET BY ity of 00:00: [facility] EVERY DAY Medical NEEDED Branch cetirizine 2020-0 Yes TAKE 1 Unive rs 5 mg tablet 9-13 TABLET BY ity of 00:00: [place] EVERY DAY Medical NEEDED Branch cetirizine 2020-0 Yes TAKE 1 Unive rs 5 mg tablet 9-13 TABLET BY ity of 00:00: [facility] EVERY DAY Medical NEEDED Branch cetirizine 2020-0 Yes TAKE 1 Unive rs 5 mg tablet 9-13 TABLET BY ity of 00:00: [facility] EVERY DAY Medical NEEDED Branch Pantoprazol No 40mg Twice A LEE TU e Day S (Protonix) Health 40 Mg TABEC Sucralfate No 1 Before [facility] (Carafate) Meals And S 1 Gm TAB At Bedtime Healt h Pantoprazol No 40mg [facility] e S - (Protonix) [place] 40 [facility] Sucralfate No 1 [facility] (Carafate) S - 1 Gm TAB [place] [facility] Immunizations Ordered Filled Immunization Date Status Comments [facility] e Immunization Name Name SARS-COV-2 COVID-19 2021-03-16 Completed Unive rsity of MODERNA VACCINE 00:00:00 [facility] ical Branch SARS-COV-2 COVID-19 2021-03-16 Completed Unive rsity of MODERNA VACCINE 00:00:00 [facility] ical Branch SARS-COV-2 COVID-19 2021-03-16 Completed Unive rsity of MODERNA VACCINE 00:00:00 [facility] ical Branch SARS-COV-2 COVID-19 2021-03-16 Completed Unive rsity of MODERNA VACCINE 00:00:00 [facility] SARS-COV-2 COVID-19 2021-03-16 Completed Unive rsity of MODERNA VACCINE 00:00:00 [facility] SARS-COV-2 COVID-19 2021-03-16 Completed Unive rsity of MODERNA VACCINE 00:00:00 [facility] ical Branch SARS-COV-2 COVID-19 2021-03-16 Completed Unive rsity of MODERNA VACCINE 00:00:00 [facility] SARS-COV-2 COVID-19 2021-03-16 Completed Unive rsity of MODERNA VACCINE 00:00:00 [facility] ical Branch SARS-COV-2 COVID-19 2021-02-16 Completed Unive rsity of MODERNA VACCINE 00:00:00 [facility] ical Branch SARS-COV-2 COVID-19 2021-02-16 Completed Unive rsity of MODERNA VACCINE 00:00:00 [facility] ical Branch SARS-COV-2 COVID-19 2021-02-16 Completed Unive rsity of MODERNA VACCINE 00:00:00 [facility] ical Branch SARS-COV-2 COVID-19 2021-02-16 Completed Unive rsity of MODERNA VACCINE 00:00:00 [facility] SARS-COV-2 COVID-19 2021-02-16 Completed Unive rsity of MODERNA VACCINE 00:00:00 [facility] SARS-COV-2 COVID-19 2021-02-16 Completed Unive rsity of MODERNA VACCINE 00:00:00 [facility] SARS-COV-2 COVID-19 2021-02-16 Completed Unive rsity of MODERNA VACCINE 00:00:00 [facility] SARS-COV-2 COVID-19 2021-02-16 Completed Unive rsity of MODERNA VACCINE 00:00:00 [facility] Vital Signs Vital Name Observation Time Observation Value Comments Source Systolic blood 2021-11-14 20:21:00 133 mm[Hg] Univer sity of pressure [facility] Diastolic blood 2021-11-14 20:21:00 79 mm[Hg] Unive rsity of pressure [facility] Heart rate 2021-11-14 20:18:00 65 /min [facility] Body height 2021-11-14 20:18:00 180.3 cm [facility] Body weight 2021-11-14 20:18:00 75.479 kg [facility] BMI 2021-11-14 20:18:00 23.21 kg/m2 [facility] Oxygen saturation in 2021-11-14 20:18:00 98 /min [facility] Arterial blood by [facility] Pulse oximetry Branch Body Temperature 2019-11-04 12:00:00 99.5 [degF] [facility] Heart Rate 2019-11-04 12:00:00 94 /min [facility] Respiratory rate 2019-11-04 12:00:00 20 /min [facility] BP Systolic 2019-11-04 12:00:00 158 mm[Hg] [facility] BP Diastolic 2019-11-04 12:00:00 77 mm[Hg] [facility] Heart Rate 2019-11-02 23:46:00 75 /min [facility] Respiratory rate 2019-11-02 23:46:00 20 /min [facility] BP Systolic 2019-11-02 23:46:00 145 mm[Hg] [facility] BP Diastolic 2019-11-02 23:46:00 63 mm[Hg] [facility] Weight 2019-11-02 16:12:00 186 [lb_av] [facility] [place] BMI (Body Mass 2019-11-02 16:12:00 25.9 kg/m2 [facility] Health Index) Procedures Procedure Date / Time Performing Clinician Source Performed AUTHORIZATION FOR 2022-02-14 05:01:00 Doctor Unassigned, No [facility] RELEASE OF PHI Name Medical Branch X-ray of chest, two 2019-11-04 00:00:00 [facility] [place] views Computed tomography of 2019-11-03 00:00:00 [facility] [place] head or brain without contrast CT angiography of neck 2019-11-03 00:00:00 [facility] [place] X-ray of chest, single 2019-11-02 00:00:00 [facility] [place] [facility] Plan of Care Planned Activity Planned Date Details Comments Source Future Scheduled Test Bacterial blood culture [facility] [place] [code = 600-7] [facility] Future Scheduled Test Automated blood [facility] [place] leukocyte count [facility] (number/volume) [code = 6690-2] Future Scheduled Test Blood erythrocytes [facility] [place] automated count [facility] (number/volume) [code = 789-8] Future Scheduled Test Blood hemoglobin [facility] [place] measurement [facility] al (mass/volume) [code = 718-7] Future Scheduled Test Automated blood [facility] [place] hematocrit (volume [facility] fraction) [code = 4544-3] Future Scheduled Test Automated erythrocyte [facility] [place] mean corpuscular volume [facility] ([facility]) measurement [code = 787-2] Future Scheduled Test Automated erythrocyte [facility] [place] mean corpuscular [facility] spital hemoglobin (mass per erythrocyte) [code = 785-6] Future Scheduled Test Automated erythrocyte [facility] [place] mean corpuscular [facility] spital hemoglobin concentration measurement (mass/vol [code = 786-4] Future Scheduled Test Automated erythrocyte [facility] [place] distribution width [facility] ratio [code = 788-0] Future Scheduled Test Automated blood [facility] [place] platelet count [facility] (count/volume) [code = 777-3] Future Scheduled Test Automated blood [facility] [place] platelet mean volume [facility] measurement [code = 06595-3] Future Scheduled Test Service comment 04 [facility] [place] [code = 8265-1] [facility] Future Scheduled Test Serum or plasma sodium [facility] [place] measurement [facility] (moles/volume) [code = 2951-2] Future Scheduled Test Serum or plasma [facility] [place] potassium measurement [facility] (moles/volume) [code = 2823-3] Future Scheduled Test Serum or plasma [facility] [place] chloride measurement [facility] (moles/volume) [code = 2075-0] Future Scheduled Test Serum or plasma total [facility] [place] carbon dioxide [facility] (moles/volume) [code = 8-9] Future Scheduled Test Serum or plasma anion [facility] [place] gap determination [facility] o[facility]ital (moles/volume) [code = 51910-3] Future Scheduled Test Serum or plasma urea [facility] [place] nitrogen measurement [facility] (mass/volume) [code = 3094-0] Future Scheduled Test Serum or plasma [facility] [place] creatinine measurement [facility] (mass/volume) [code = 2160-0] Future Scheduled Test GFR estimate MDRD [code [facility] [place] = 31010-7] [facility] Future Scheduled Test Serum or plasma urea [facility] [place] nitrogen/creatinine [facility] mass ratio [code = 3097-3] Future Scheduled Test Serum or plasma glucose [facility] [place] measurement [facility] (mass/volume) [code = 2345-7] Future Scheduled Test Osmolality of Serum or [facility] [place] Plasma by calculation [facility] [code = 05807-5] Future Scheduled Test Serum or plasma calcium [facility] [place] measurement [facility] (mass/volume) [code = 02881-6] Instructions OTHER [facility] - [place] [facility] Encounters Start End Encounter Admission Attending Care Care Encounter Source Date/Time Date/Time Type Type Clinicians Facility Department ID 2022-02-14 2022-02-14 Orders Doctor BRIDGES 1.2.840.114 [id number] Univers 00:00:00 00:00:00 Only Unassigned, JANES [id number] ity of [place] [facility] 4.2.7.2.686 Xavier as [id number] [facility] [address] [place] 2021-12-27 2021-12-27 [facility] 1.2.840.114 [id number] Univers 00:00:00 00:00:00 Buddy Gene HE[facility] [id number] it[facility] 4.2.7.2.686 Xavier as NHI?BLEA [phone] [facility] [address] OFFICE [facility] 2021-12-19 2021-12-19 Letter CYRUS Roberts 1.2.840.114 [id number] Univers 00:00:00 00:00:00 (Out) Sirena T JANES [id number] it y of HOSPITAL 4.2.7.2.686 Xavier as [id number] [address] 2021-12-18 2021-12-18 Laboratory Only, Ang Db Test [facility] 1.2.8 40.114 [id number] Univers 14:00:00 14:15:00 Only Efren [facility] [id number] ity of [place] 4.2.7.2.686 Xavier as NHI?BLEA [id number] [facility] 370 [facility] 2021-12-18 2021-12-18 Out[facility] [id number] Univers 14:00:00 14:00:00 AXEL ity [facility] 2021-12-09 2021-12-09 [facility] 1.2.840.114 [id number] Univers 00:00:00 00:00:00 [facility] [id number] ity [facility] 4.2.7.2.686 Xavier as NHI?BLEA [phone] [address] 2021-12-07 2021-12-07 Letter CYRUS Roberts 1.2.840.114 [id number] Univers 00:00:00 00:00:00 (Out) Sirena T JANES [id number] it y of HOSPITAL 4.2.7.2.686 Xavier as [id number] [address] 2021-12-05 2021-12-05 Laboratory Only, Ang Db Test [facility] 1.2.8 40.114 [id number] Univers 16:00:00 16:15:00 Only Jocelyne Herrera [facility] [id number] ity of [place] 4.2.7.2.686 Xavier as NHI?BLEA [phone] Nd william FRANKS [address] [place] MEDICAL OFFICE [facility] 2021-12-05 2021-12-05 Outpatient R WILDER, [facility] [id number] Univers 16:00:00 16:00:00 JOCELYNE yu o f [facility] 2021-11-14 2021-11-14 Certified Nurse Aide Lab, Ang - Db [facility] 1.2.840.1 [id number] Univers 15:00:00 15:15:00 Visit Buddy Ochoa [facility] 350.1.13. 10 ity of [place] 4.2.7.2.686 Xavier as NHI?BLEA [phone] Nd william FRANKS [address] [facility] OFFICE [facility] 2021-11-14 2021-11-14 Outpatient R DONBUDDY Mcneil [facility] [id number] Univers 15:00:00 15:00:00 BUDDY OCHOA [facility] 2021-11-14 2021-11-14 Office Don [facility] 1.2.840.114 [id number] Univers 14:20:00 14:42:55 Visit [facility] [id number] ity of [place] 4.2.7.2.686 Xavier as NHI?BLEA [id number] Nd william FRANKS [facility] OFFICE [facility] 2021-11-14 2021-11-14 Outpatient R DON, BUDDY [facility] [id number] Univers 14:20:00 14:42:55 DON, BUDDY yu [facility] 2021-11-06 2021-11-06 Telephone Don [facility] 1.2.840.114 [id number] Univers 00:00:00 00:00:00 [facility] [id number] ity of [place] 4.2.7.2.686 Xavier as NHI?BLEA [phone] [address] OFFICE [facility] 2021-11-01 2021-11-01 Telephone Don [facility] 1.2.840.114 [id number] Univers 00:00:00 00:00:00 Buddy [facility] [id number] ity [facility] 4.2.7.2.686 Xavier as NHI?BLEA [id number] [address] 2021-10-24 2021-10-24 Outpatient BUDDY HA [facility] RAD [id number] Univers 13:03:02 23:59:00 BUDDY OCHOA [facility] 2021-10-24 2021-10-24 [facility] Don [facility] [id number] [id number] Univers 13:03:02 23:59:00 Encounter Buddy Dumont [place] 350.1.13.10 ity [facility] 4.2.7.2.686 [facility] [id number] [address] 2021-10-24 2021-10-24 Outpatient BUDDY HA [facility] RAD [id number] Univers 13:03:02 23:59:00 BUDDY OCHOA [facility] 2021-10-24 2021-10-24 Outpatient BUDDY HA [facility] [id number] Univers 00:00:00 00:00:00 BUDDY OCHOA [facility] 2021-10-17 2021-10-17 Outpatient BUDDY HA [facility] [id number] Univers 15:40:00 16:38:30 BUDDY OCHOA [facility] 2021-10-17 2021-10-17 Outpatient BUDDY HA [facility] [id number] Univers 15:40:00 16:38:30 BUDDY OCHOA nithya [facility] 2021-10-17 2021-10-17 Office Don [facility] 1.2.840.114 [id number] Univers 15:32:38 16:38:30 Visit Buddy [facility] 350.1.13.10 ity [facility] 4.2.7.2.686 Xavier as NHI?BLEA [phone] Me dical [place] [address] [place] MEDICAL OFFICE BUILDING 2021-10-10 2021-10-10 Orders Doctor CYRUS 1.2.840.114 [id number] Univers 00:00:00 00:00:00 Only Unassigned, JANES 350.1.13.10 ity of [place] [facility] 4.2.7.2.686 Xavier as [phone] [address] 2021-07-04 2021-07-04 Outpatient Rudi KEENAN [facility] [id number] Univers 11:00:00 11:00:00 PATRICE [facility] 2021-05-15 2021-05-15 Outpatient Miller_S_AH VFP VFP [id number] [facility] 05:08:00 05:08:00 [id number] Family Practic e 2021-03-16 2021-03-16 Outpatient Rudi SOLIS [facility] [id number] Univers 12:10:00 12:10:00 DENNIS nithya [facility] 2021-03-16 2021-03-16 Outpatient Rudi SOLIS [facility] [id number] Univers 12:10:00 12:05:46 DENNIS [facility] 2021-02-16 2021-02-16 Outpatient Rudi SOLIS [facility] [id number] Univers 12:10:00 12:10:00 DENNIS [facility] 2020-09-16 2020-09-16 Office [facility] [id number] Univers 09:53:06 10:27:37 Visit Yelena [facility] 350.1.13.10 it y of Surgical 4.2.7.2.686 Xavier as Specialti [phone] Nd rossrolando es [address] [facility] 2020-09-16 2020-09-16 Out[facility] [id number] Univers 10:00:00 10:00:00 YELENA [facility] 2020-09-13 2020-09-13 Hospital [facility] 1.2.840.114 [id number] Univers 10:00:00 23:59:00 Encounter Yelena Smart [place] 350.1.13.10 ity [facility] 4.2.7.2.686 [facility] [id number] [facility] 8[address] [place] 2020-09-13 2020-09-13 Out[facility] [id number] Univers 00:00:00 00:00:00 YELENA yu [facility] 2020-09-13 2020-09-13 Orders Doctor CYRUS 1.2.840.114 [id number] Univers 00:00:00 00:00:00 Only Unassigned, JANES 350.1.13.10 ity of [place] [facility] 4.2.7.2.686 Xavier as [id number] [address] 2020-08-19 2020-08-19 Office [facility] [id number] 09:44:23 10:10:38 Visit [facility] 350.1.13.10 Surgical 4.2.7.2.686 Specialti [phone] es [address] [place] [address] 2020-08-19 2020-08-19 Office [facility] 1.2.129.107 [id number] Univers 09:44:23 10:10:38 Visit [facility] 350.1.13.10 it y of Surgical 4.2.7.2.686 Xavier as Specialti [id number] Nd dical es [address] [facility] 2020-08-19 2020-08-19 Outpatient Rudi [facility] [id number] Univers 09:45:00 09:45:00 YELENA yu [facility] 2020-08-19 2020-08-19 Orders Doctor BRDIGES 1.2.840.114 [id number] Univers 00:00:00 00:00:00 Only Unassigned, JANSE 350.1.13.10 ity of [place] [facility]PITAL 4.2.7.2.686 Xavier as [id number] [address] 2020-01-14 2020-01-14 Outpatient Radha-Mbayo VFP VFP [id number] [facility] 06:03:00 06:03:00 _A_AH [id number] Family Practic e 2020-01-14 2020-01-14 Outpatient Radha-Mbayo VFP VFP [id number] [facility] 06:03:00 06:03:00 _A_AH [id number] Family Practic e 2020-01-14 2020-01-14 Outpatient [facility] [id number] [facility] 06:03:00 06:03:00 _A_AH [id number] Family Practic e 2019-11-02 2019-11-04 Discharged SENDY Fleming [id number] [facility] 17:41:00 13:48:[address] 2019-11-02 2019-11-04 Discharged SENDY Fleming [id number] [facility] 17:41:00 13:48:[address] Hospita l 2019-10-14 2019-10-14 Inpatient E [...] HealthAutomated erythrocyte mean corpuscular hemoglobin concentration measurement (mass/[id number] 05:20:00 Test Item Value Reference Range Interpretation Comments Mean Corpuscular Hemoglobin Concent 32.8 g/dL 33.0-37.0 (test code = 786-4) [facility] HealthAutomated erythrocyte distribution width [id number] 05:20:00 Test Item Value Reference Range Interpretation Comments Red Cell Distribution Width (test code 16.3 % 10.7-14.5 = 788-0) [facility] HealthAutomated blood platelet count (count/volume)2019-11-04 05:20:00 Test Item Value Reference Range Interpretation Comments Platelet Count (test code = 340 10*3/uL 150-450 777-3) [facility] HealthAutomated blood platelet mean volume [id number] 05:20:00 Test Item Value Reference Range Interpretation Comments Mean Platelet Volume (test code = 10.1 fL 5.7-10.7 22454-1) [facility] comment [id number] 05:20:00 Test Item Value Reference Range Interpretation Comments Manual Differential (test code = ----- 8265-1) [facility] HealthManual blood segmented neutrophils/100 fnudthgbmu1685-04-57 05:20:00 Test Item Value Reference Range Interpretation Comments Neutrophils % (Manual) (test code = 87 % 42-75 769-0) [facility] HealthManual blood lymphocytes/100 ypecbpgixg3455-04-52 05:20:00 Test Item Value Reference Range Interpretation Comments Lymphocytes % (Manual) (test code = 9 % 21-51 737-7) [facility]Manual blood monocytes/100 [id number] 05:20:00 Test Item Value Reference Range Interpretation Comments Monocytes % (Manual) (test code = 2 % 1-9 744-3) [facility]Manual blood eosinophil count as percentage of total leukocytes 2019-11-04 05:20:00 Test Item Value Reference Range Interpretation Comments Eosinophils % (Manual) (test code = 2 % 0-7 714-6) [facility] HealthBlood platelet detection by light [id number] 05:20:00 Test Item Value Reference Range Interpretation Comments Platelet Estimate (test code = Adequate 9317-9) [facility] HealthBlood erythrocyte morphology finding [id number] 05:20:00 Test Item Value Reference Range Interpretation [...] Dioxide Level (test code = 23 mmol/L 23-31 8-9) [facility] HealthSerum or plasma anion gap determination (moles/volume)2019-11-04 05:20:00 Test Item Value Reference Range Interpretation Comments Anion Gap (test code = 59619-6) 07-05 [facility] HealthSerum or plasma urea nitrogen measurement (mass/volume)2019-11-04 05:20:00 Test Item Value Reference Range Interpretation Comments Blood Urea Nitrogen (test code = 5 mg/dL 07-13 3094-0) [facility] HealthSerum or plasma creatinine measurement (mass/volume)2019-11-04 05:20:00 Test Item Value Reference Range Interpretation Comments Creatinine (test code = 2160-0) 0.6 mg/dL 0.7-1.3 [facility]GFR estimate [id number] 05:20:00 Test Item Value Reference Range Interpretation Comments Estimat Glomerular Filtration Rate 139 50-100 (test code = 78964-5) [facility] HealthSerum or plasma urea nitrogen/creatinine mass [id number] 05:20:00 Test Item Value Reference Range Interpretation Comments BUN/Creatinine Ratio (test code = 8 3097-3) [facility] HealthSerum or plasma glucose measurement (mass/volume)2019-11-04 05:20:00 Test Item Value Reference Range Interpretation Comments Glucose Level (test code = 2345-7) 112 mg/dL 60-100 [facility] HealthOsmolality of Serum or Plasma by auczpwmulxs6344-94-95 05:20:00 Test Item Value Reference Range Interpretation Comments Calculated Osmolality (test code 270 mosm/kg = 75068-7) [facility] HealthSerum or plasma calcium measurement (mass/volume)2019-11-04 05:20:00 Test Item Value Reference Range Interpretation Comments Calcium Level (test code = 68840-2) 8.1 mg/dL 8.8-10.0 [facility] (number/volume)2019-11-04 05:20:00 Test Item Value Reference Range Interpretation Comments White Blood Count (test code = 14.4 10*3/uL 4.5-11.5 6690-2) [facility] HospitalBlood erythrocytes automated count (number/volume)2019-11-04 05:20:00 Test Item Value Reference Range Interpretation Comments Red Blood Count (test code = 2.79 10*6/uL 4.4-6.2 789-8) [facility] Hospital[facility] or plasma sodium measurement (moles/volume)2019-11-04 05:20:00 Test Item Value Reference Range Interpretation Comments Sodium Level (test code = 2951-2) 136 mmol/L Serum or plasma potassium measurement (moles/volume)2019-11-04 05:20:00 Test Item Value Reference Range Interpretation Comments Potassium Level (test code = 3.1 mmol/L 2823-3) Serum or plasma chloride measurement (moles/volume)2019-11-04 05:20:00 Test Item Value Reference Range Interpretation Comments Chloride Level (test code = 104 mmol/L 5-0) Serum or plasma total carbon dioxide measurement (moles/volume)2019-11-04 05:20:00 Test Item Value Reference Range Interpretation Comments Carbon Dioxide Level (test code = 23 mmol/L 8-9) Serum or plasma anion gap determination (moles/volume)2019-11-04 05:20:00 Test Item Value Reference Range Interpretation Comments Anion Gap (test code = 71576-7) 12 Serum or plasma urea nitrogen measurement (mass/volume)2019-11-04 05:20:00 Test Item Value Reference Range Interpretation Comments Blood Urea Nitrogen (test code = 5 mg/dL 3094-0) Serum or plasma creatinine measurement (mass/volume)2019-11-04 05:20:00 Test Item Value Reference Range Interpretation Comments Creatinine (test code = 2160-0) 0.6 mg/dL GFR estimate [id number] 05:20:00 Test Item Value Reference Range Interpretation Comments Estimat Glomerular Filtration Rate 139 (test code = 51872-6) Serum or plasma urea nitrogen/creatinine mass [id number] 05:20:00 Test Item Value Reference Range Interpretation Comments BUN/Creatinine Ratio (test code = 8 3097-3) Serum or plasma glucose measurement (mass/volume)2019-11-04 05:20:00 Test Item Value Reference Range Interpretation Comments Glucose Level (test code = 2345-7) 112 mg/dL Osmolality of Serum or Plasma by [id number] 05:20:00 Test Item Value Reference Range Interpretation Comments Calculated Osmolality (test code 270 mosm/kg = 04763-5) Serum or plasma calcium measurement (mass/volume)2019-11-04 05:20:00 Test Item Value Reference Range Interpretation Comments Calcium Level (test code = 76344-9) 8.1 mg/dL Automated blood leukocyte count (number/volume)2019-11-04 05:20:00 Test Item Value Reference Range Interpretation Comments White Blood Count (test code = 14.4 10*3/uL 6690-2) Blood erythrocytes automated count (number/volume)2019-11-04 05:20:00 Test Item Value Reference Range Interpretation Comments Red Blood Count (test code = 2.79 10*6/uL 789-8) Blood hemoglobin measurement (mass/volume)2019-11-04 05:20:00 Test Item Value Reference Range Interpretation Comments Hemoglobin (test code = 718-7) 8.3 g/dL Automated blood hematocrit (volume fraction)2019-11-04 05:20:00 Test Item Value Reference Range Interpretation Comments Hematocrit (test code = 4544-3) 25.3 % Automated erythrocyte mean corpuscular volume (MCV) lhrdahshefs4887-49-45 05:20:00 Test Item Value Reference Range Interpretation Comments Mean Corpuscular Volume (test code = 90.7 fL 787-2) Automated erythrocyte mean corpuscular hemoglobin (mass per erythrocyte) 2019-11-04 05:20:00 Test Item Value Reference Range Interpretation Comments Mean Corpuscular Hemoglobin (test 29.7 pg code = 785-6) Automated erythrocyte mean corpuscular hemoglobin concentration measurement (mass/[id number] 05:20:00 Test Item Value Reference Range Interpretation Comments Mean Corpuscular Hemoglobin Concent 32.8 g/dL (test code = 786-4) Automated erythrocyte distribution width [id number] 05:20:00 Test Item Value Reference Range Interpretation Comments Red Cell Distribution Width (test code 16.3 % = 788-0) Automated blood platelet count (count/volume)2019-11-04 05:20:00 Test Item Value Reference Range Interpretation Comments Platelet Count (test code = 340 10*3/uL 777-3) Automated blood platelet mean volume tbgkbdepsao1071-21-90 05:20:00 Test Item Value Reference Range Interpretation Comments Mean Platelet Volume (test code = 10.1 fL 79131-8) Service comment [id number] 05:20:00 Test Item Value Reference Range Interpretation Comments Manual Differential (test code = ----- 8265-1) Manual blood segmented neutrophils/100 gapejogwrh9633-85-14 05:20:00 Test Item Value Reference Range Interpretation Comments Neutrophils % (Manual) (test code = 87 % 769-0) Manual blood lymphocytes/100 nppadiywhm8144-26-22 05:20:00 Test Item Value Reference Range Interpretation Comments Lymphocytes % (Manual) (test code = 9 % 737-7) Manual blood monocytes/100 djlipjicwr8267-39-28 05:20:00 Test Item Value Reference Range Interpretation Comments Monocytes % (Manual) (test code = 2 % 744-3) Manual blood eosinophil count as percentage of total kwhdukcvim4955-56-88 05:20:00 Test Item Value Reference Range Interpretation Comments Eosinophils % (Manual) (test code = 2 % 714-6) Blood platelet detection by light ppdsaepnhb0539-35-48 05:20:00 Test Item Value Reference Range Interpretation Comments Platelet Estimate (test code = Adequate 9317-9) Blood erythrocyte morphology finding skieghmonhfsli5212-92-24 05:20:00 Test Item Value Reference Range Interpretation Comments Red Blood Cell Morphology (test code = Normal 6742-1) Serum or plasma phosphate measurement (mass/volume)2019-11-03 04:40:00 Test Item Value Reference Range Interpretation Comments Phosphorus Level (test code = 3.0 mg/dL 2.3-4.7 2777-1) [facility]um or plasma magnesium measurement (mass/volume)2019-11-03 04:40:00 Test Item Value Reference Range Interpretation Comments Magnesium Level (test code = 1.91 mg/dL 1.60-2.60 78376-5) [facility] or plasma total bilirubin measurement (mass/volume) 2019-11-03 04:40:00 Test Item Value Reference Range Interpretation Comments Total Bilirubin (test code = 0.9 mg/dL 0.2-1.2 1975-2) [facility]Serum or plasma aspartate aminotransferase measurement (enzymatic activity/volume)2019-11-03 [...] Range Interpretation Comments Globulin (test code = 90884-0) 2.8 g/dL [facility]Serum or plasma albumin/globulin mass [id number] 04:40:00 Test Item Value Reference Range Interpretation Comments Albumin/Globulin Ratio (test code = 1.2 1759-0) [facility]um or plasma alkaline phosphatase measurement (enzymatic activity/volume)2019-11-03 04:40:00 Test Item Value Reference Range Interpretation Comments Alkaline Phosphatase (test code = 71 U/L 40-150 6768-6) [facility]um or plasma phosphate measurement (mass/volume)2019-11-03 04:40:00 Test Item Value Reference Range Interpretation Comments Phosphorus Level (test code = 3.0 mg/dL 2777-1) Serum or plasma magnesium measurement (mass/volume)2019-11-03 04:40:00 Test Item Value Reference Range Interpretation Comments Magnesium Level (test code = 1.91 mg/dL 40452-9) Serum or plasma total bilirubin measurement (mass/volume)2019-11-03 04:40:00 Test Item Value Reference Range Interpretation Comments Total Bilirubin (test code = 0.9 mg/dL 1975-2) Serum or plasma aspartate aminotransferase measurement (enzymatic activity/volume)2019-11-03 04:40:00 Test Item Value Reference Range Interpretation Comments Aspartate Amino Transf (AST/SGOT) 26 U/L (test code = 1920-8) Serum or plasma alanine aminotransferase measurement (enzymatic activity/volume) 2019-11-03 04:40:00 Test Item Value Reference Range Interpretation Comments Alanine Aminotransferase (ALT/SGPT) 13 U/L (test code = 1742-6) Serum or plasma protein measurement (mass/volume)2019-11-03 04:40:00 Test Item Value Reference Range Interpretation Comments Total Protein (test code = 2885-2) 6.1 g/dL Serum or plasma albumin measurement (mass/volume)2019-11-03 04:40:00 Test Item Value Reference Range Interpretation Comments Albumin (test code = 1751-7) 3.3 g/dL Serum globulin measurement by calculation (mass/volume)2019-11-03 04:40:00 Test Item Value Reference Range Interpretation Comments Globulin (test code = 40802-1) 2.8 g/dL Serum or plasma albumin/globulin mass [id number] 04:40:00 Test Item Value Reference Range Interpretation Comments Albumin/Globulin Ratio (test code = 1.2 1759-0) Serum or plasma alkaline phosphatase measurement (enzymatic activity/volume) 2019-11-03 04:40:00 Test Item Value Reference Range Interpretation Comments Alkaline Phosphatase (test code = 71 U/L 6768-6) Bacterial blood [id number] 18:05:00 Test Item Value Reference Range Interpretation Comments Blood Culture (test code No growth in 24 hrs. = 600-7) [facility] HealthBacterial blood [id number] 18:05:00 Test Item Value Reference Range Interpretation Comments Blood Culture (test code No growth in 24 hrs. = 600-7) Venous blood lactic acid measurement (moles/volume)2019-11-02 18:04:00 Test Item Value Reference Range Interpretation Comments Bedside Lactic Acid Venous (test 1.18 mmol/L 0.50-2.20 code = 2519-7) [facility] Health[facility]ous blood lactic acid measurement (moles/volume)2019-11-02 18:04:00 Test Item Value Reference Range Interpretation Comments Bedside Lactic Acid Venous (test 1.18 mmol/L code = 2519-7) Blood anion [id number] 16:35:00 Test Item Value Reference Range Interpretation Comments Bedside Anion Gap (test code = 10418-2) 16 07-05 [facility] HealthGFR estimate [id number] 16:35:00 Test Item Value Reference Range Interpretation Comments Estimat Glomerular Filtration Rate 117 50-100 (test code = 56204-9) [facility]2019-[facility]-02 16:35:00 Test Item Value Reference Range Interpretation Comments Bedside Hemoglobin (test code = 10.2 g/dL 13.0-17.5 65649-5) [facility] hematocrit (volume fraction)2019-11-02 16:35:00 Test Item Value Reference Range Interpretation Comments Bedside Hematocrit (test code = 30.0 % 40.0-53.0 95525-5) [facility] sodium measurement (moles/volume)2019-11-02 16:35:00 Test Item Value Reference Range Interpretation Comments Bedside Sodium (test code = 134 mmol/L 136-145 16212-4) [facility] potassium measurement (moles/volume)2019-11-02 16:35:00 Test Item Value Reference Range Interpretation Comments Bedside Potassium (test code = 2.9 mmol/L 3.5-5.1 44127-5) [facility] chloride measurement (moles/volume)2019-11-02 16:35:00 Test Item Value Reference Range Interpretation Comments Bedside Chloride (test code = 101 mmol/L 100-112 70364-2) [facility] total carbon dioxide measurement (moles/volume)2019-11-02 16:35:00 Test Item Value Reference Range Interpretation Comments Bedside Total CO2 (test code = 22.0 mmol/L 24.0-33.0 2026-) [facility] urea nitrogen (BUN) measurement (mass/volume) 2019-11-02 16:35:00 Test Item Value Reference Range Interpretation Comments Bedside Blood Urea Nitrogen (test 5 mg/dL 8-23 code = 07853-4) [facility] ([facility]/volume)2019-11-02 16:35:00 Test Item Value Reference Range Interpretation Comments Bedside Creatinine (test code = 0.7 mg/dL 0.9-1.5 22751-8) [facility] blood glucose measurement (mass/volume)2019-11-02 16:35:00 Test Item Value Reference Range Interpretation Comments Bedside Glucose (test code = 105 mg/dL 60-100 22263-3) [facility] blood ionized calcium measurement (moles/volume)2019-11-02 16:35:00 Test Item Value Reference Range Interpretation Comments Bedside Whole Blood Ionized 1.04 mmol/L 1.12-1.32 Calcium (test code = 1994-3) [facility] blood sodium measurement (moles/volume)2019-11-02 16:35:00 Test Item Value Reference Range Interpretation Comments Bedside Sodium (test code = 134 mmol/L 63498-8) Venous whole blood potassium measurement (moles/volume)2019-11-02 16:35:00 Test Item Value Reference Range Interpretation Comments Bedside Potassium (test code = 2.9 mmol/L 39523-7) Venous whole blood chloride measurement (moles/volume)2019-11-02 16:35:00 Test Item Value Reference Range Interpretation Comments Bedside Chloride (test code = 101 mmol/L 64756-5) Venous whole blood total carbon dioxide measurement (moles/volume)2019-11-02 16:35:00 Test Item Value Reference Range Interpretation Comments Bedside Total CO2 (test code = 22.0 mmol/L 7-1) Venous whole blood urea nitrogen (BUN) measurement (mass/volume)2019-11-02 16:35:00 Test Item Value Reference Range Interpretation Comments Bedside Blood Urea Nitrogen (test 5 mg/dL code = 47515-7) Blood creatinine measurement (mass/volume)2019-11-02 16:35:00 Test Item Value Reference Range Interpretation Comments Bedside Creatinine (test code = 0.7 mg/dL 45020-2) Venous whole blood glucose measurement (mass/volume)2019-11-02 16:35:00 Test Item Value Reference Range Interpretation Comments Bedside Glucose (test code = 105 mg/dL 68019-5) Whole blood ionized calcium measurement (moles/volume)2019-11-02 16:35:00 Test Item Value Reference Range Interpretation Comments Bedside Whole Blood Ionized 1.04 mmol/L Calcium (test code = 1994-3) Blood anion [id number] 16:35:00 Test Item Value Reference Range Interpretation Comments Bedside Anion Gap (test code = 70351-6) 16 GFR estimate [id number] 16:35:00 Test Item Value Reference Range Interpretation Comments Estimat Glomerular Filtration Rate 117 (test code = 48889-5) Venous blood hemoglobin measurement (mass/volume)2019-11-02 16:35:00 Test Item Value Reference Range Interpretation Comments Bedside Hemoglobin (test code = 10.2 g/dL 98984-5) Venous blood hematocrit (volume fraction)2019-11-02 16:35:00 Test Item Value Reference Range Interpretation Comments Bedside Hematocrit (test code = 30.0 % 17922-4) Urinalysis specimen collection [id number] 16:30:00 Test Item Value Reference Range Interpretation Comments Urine Source (test code = 05214-0) URINE [facility] Health[facility] of Urine by [id number] 16:30:00 Test Item Value Reference Range Interpretation Comments Urine Color (test code = 38831-0) Lt Yellow Yel-Kaylah * [facility] HealthUrine clarity [id number] 16:30:00 Test Item Value Reference Range Interpretation Comments Urine Appearance (test code = 23327-9) Clear Clear * [facility] HealthUrine pH measurement by automated test [id number] 16:30:00 Test Item Value Reference Range Interpretation Comments Urine pH (test code = 49961-7) 7.0 5.0-8.0 [facility] HealthSpecific gravity of Urine by Automated test [id number] 16:30:00 Test Item Value Reference Range Interpretation Comments Urine Specific [place] (test code = 1.005 1.005-1.030 75552-4) [facility] HealthUrine protein measurement by automated test strip (mass/volume) 2019-11-02 16:30:00 Test Item Value Reference Range Interpretation Comments Urine Protein (test code = Negative mg/dL Negative * 45661-3) [facility] HealthUrine glucose measurement by automated test strip (mass/volume) 2019-11-02 16:30:00 Test Item Value Reference Range Interpretation Comments Urine Glucose (UA) (test code Negative mg/dL Negative * = 87641-9) [facility] HealthUrine ketones measurement by automated test strip (mass/volume) 2019-11-02 16:30:00 Test Item Value Reference Range Interpretation Comments Urine Ketones (test code = Negative mg/dL Negative * 92016-7) [facility] Hospital[facility] erythrocytes count by automated test strip (number/volume) 2019-11-02 16:30:00 Test Item Value Reference Range Interpretation Comments Urine Occult Blood (test code = Negative Negative * 74313-7) [facility] HospitalUrine nitrite detection by automated test [id number] 16:30:00 Test Item Value Reference Range Interpretation Comments Urine Nitrite (test code = 58091-0) Negative Negative [facility] total bilirubin measurement by automated test strip (mass/volume)2019-11-02 16:30:00 Test Item Value Reference Range Interpretation Comments Urine Bilirubin (test code = Negative mg/dL Negative 55291-7) [facility] urobilinogen measurement by automated test strip (mass/volume)2019-11-02 16:30:00 Test Item Value Reference Range Interpretation Comments Urine Urobilinogen (test code Negative mg/dL 0.0-1.0 = 65058-4) [facility] leukocytes count by automated test strip (number/volume) 2019-11-02 16:30:00 Test Item Value Reference Range Interpretation Comments Urine Leukocyte Esterase Negative {Freddy}/uL Negative (test code = 86067-4) [facility] HospitalMicroscopic examination of [id number] 16:30:00 Test Item Value Reference Range Interpretation Comments Microscopic Urinalysis (T) (test code Not Ind = 37828-1) [facility] comment 16:30:00 Test Item Value Reference Range Interpretation Comments Urinalysis Comment (test * See_Comment [A utomated message] The code = 8262-8) system which generated this result tra nsmitted reference range : *. The reference range was not used to interpr et this result as normal/abnormal . [facility] HospitalColor of Urine by [id number] 16:30:00 Test Item Value Reference Range Interpretation Comments Urine Color (test code = 89964-4) Lt Yellow Urine clarity timhkwrjpnaie0690-71-54 16:30:00 Test Item Value Reference Range Interpretation Comments Urine Appearance (test code = 84095-6) Clear Urine pH measurement by automated test [id number] 16:30:00 Test Item Value Reference Range Interpretation Comments Urine pH (test code = 57417-5) 7.0 Specific gravity of Urine by Automated test [id number] 16:30:00 Test Item Value Reference Range Interpretation Comments Urine Specific [place] (test code = 1.005 25462-6) Urine protein measurement by automated test strip (mass/volume)2019-11-02 16:30:00 Test Item Value Reference Range Interpretation Comments Urine Protein (test code = Negative mg/dL 79972-5) Urine glucose measurement by automated test strip (mass/volume)2019-11-02 16:30:00 Test Item Value Reference Range Interpretation Comments Urine Glucose (UA) (test code Negative mg/dL = 70337-1) Urine ketones measurement by automated test strip (mass/volume)2019-11-02 16:30:00 Test Item Value Reference Range Interpretation Comments Urine Ketones (test code = Negative mg/dL 24919-7) Urine erythrocytes count by automated test strip (number/volume)2019-11-02 16:30:00 Test Item Value Reference Range Interpretation Comments Urine Occult Blood (test code = Negative 99121-6) Urine nitrite detection by automated test [id number] 16:30:00 Test Item Value Reference Range Interpretation Comments Urine Nitrite (test code = 68603-0) Negative Urine total bilirubin measurement by automated test strip (mass/volume) 2019-11-02 16:30:00 Test Item Value Reference Range Interpretation Comments Urine Bilirubin (test code = Negative mg/dL 60666-1) Urine urobilinogen measurement by automated test strip (mass/volume)2019-11-02 16:30:00 Test Item Value Reference Range Interpretation Comments Urine Urobilinogen (test code Negative mg/dL = 56819-8) Urine leukocytes count by automated test strip (number/volume)2019-11-02 16:30:00 Test Item Value Reference Range Interpretation Comments Urine Leukocyte Esterase Negative {Freddy}/uL (test code = 87803-4) Microscopic examination of [id number] 16:30:00 Test Item Value Reference Range Interpretation Comments Microscopic Urinalysis (T) (test code Not Ind = 58583-9) Service comment [id number] 16:30:00 Test Item Value Reference Range Interpretation Comments Urinalysis Comment (test code = 8262-8) * Urinalysis specimen collection [id number] 16:30:00 Test Item Value Reference Range Interpretation Comments Urine Source (test code = 34635-2) URINE
--- NOTE | 2022-10-22 19:16 | RAD REPORT ---
EXAM DESCRIPTION: CT - Head C Spine Cap Wo Con - 10/22/2022 6:55 pm CLINICAL HISTORY: Head and neck injury with chest and abdominal pain status post fall TECHNIQUE: Computed axial tomography of head, neck, chest, abdomen and pelvis obtained. IV and oral contrast not requested. Coronal and sagittal reconstruction performed. All CT scans are performed using dose optimization technique as appropriate and may include automated exposure control or mA/KV adjustment according to patient size. COMPARISON: July 20222018 CT head and C-spine FINDINGS: An intracranial bleed is not seen. The ventricles are normal in caliber. An extra-axial fluid collection is not noted. . Fluid within the sinuses/mastoids is not seen. A cervical fracture is not seen. No dislocation is noted. Mild chronic posterior subluxation C6 on C7 . 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 A mediastinal hematoma is not noted. A pleural effusion is not seen. A lung contusion is not present. The liver,spleen, pancreas, adrenals,kidneys and bladder do not demonstrate an acute traumatic injury Ascending thoracic aorta has an AP diameter of 4 centimeters IMPRESSION: No acute intracranial abnormality is seen. A cervical fracture is not visualized. If the patient continues have symptoms to suggest intracrania l/spinal cord pathology MRI be recommended No acute traumatic abnormality involving the chest/abdomen/pelvis.
--- NOTE | 2022-10-22 19:29 | RAD REPORT ---
EXAM DESCRIPTION: Dimitry Single View10/22/2022 6:55 pm CLINICAL HISTORY: Chest pain COMPARISON: March 2022 FINDINGS: The lungs appear clear of acute infiltrate. The heart is normal size IMPRESSION: No acute abnormalities displayed
[2022-10-22] MEDS ORDERED: NA CHLORIDE 0.9% 1,000 ML ONE (19:33)
[2022-10-22 20:21] LABS: SARS-COV-2 RT PCR NEGATIVE (NEGATIVE)
[2022-10-22 21:20] LABS: Urine Blood Negative (Negative); Urine Glucose Negative (Negative); Urine Protein Negative (Negative); Urine Specific Gravity 1.025 (1.005-1.030)
[2022-10-22 22:01] LABS: Urine Mucus Slight /HPF (None Seen); Urine RBC <5 /HPF (None Seen)
[2022-10-22 22:33] LABS: Absolute Lymphocytes (CBC) 0.5 K/uL (0.7-4.9); Hematocrit 30.1 % (39.6-49.0); MCV 108.1 fL (80-100); MPV 8.7 fL (7.6-11.3); RBC Red Blood Cell Count 2.79 M/uL (4.33-5.43)
[2022-10-22 22:50] LABS: Protime INR 0.99
[2022-10-22 23:03] LABS: Albumin 2.8 g/dL (3.4-5.0); Bilirubin Direct 0.2 mg/dL (0-0.2); Bilirubin Total 0.8 mg/dL (0.2-1.0); Magnesium 1.5 mg/dL (1.8-2.4); Potassium 4.1 mmol/L (3.5-5.1); Protein, Total 6.2 g/dL (6.4-8.2)
[2022-10-22 23:14] LABS: Troponin High Sensitivity 88.9 pg/mL (<58.9)
[2022-10-22 23:18] LABS: Blood Morphology Comment NOTED (NOT SEEN); White Blood Cell Scan OK (OK)
[2022-10-22 23:19] LABS: Macrocytosis 1+; Platelet Estimate DECR
--- NOTE | 2022-10-22 23:49 | ER ---
Nurse's Notes [facility] Name: Roxane Chávez Age: 81 yrs Sex: Male : 1940 Arrival Date: 10/22/2022 Time: 18:10 Bed 20 Private MD: Diagnosis: Altered mental status, unspecified;Neutropenia, unspecified Presentation: 10/22 18:10 Chief complaint: EMS states: client fell and hit his head on the bathtub around 1715. kc6 no LOC. Coronavirus screen: Vaccine status: Patient reports receiving the 2nd dose of the covid vaccine. At this time, the client does not indicate any symptoms associated with coronavirus-19. Ebola Screen: No symptoms or risks identified at this time. Initial Sepsis Screen: Does the patient meet any 2 criteria? RR > 20 per min. Altered Mental Status. HR > 90 bpm. Yes. Risk Assessment: Do you want to hurt yourself or someone else? Patient reports no desire to harm self or others. Onset of symptoms was October 22, 2022 at 17:15. 18:10 Method Of Arrival: EMS: [facility] kc6 18:10 Acuity: TITO 2 kc6 18:15 Care prior to arrival: None. Mechanism of Injury: Fall from standing position. Trauma kc6 event details: Injury occurred in the [facility], Injury occurred: at home. Injury occurred: October 22, 2022 Injury occurred at: 17:15. 10/23 04:45 Initial Sepsis Screen: Does the patient have a suspected source of infection? No. aa9 Patient's initial sepsis screen is negative. Trauma Activation: Alert Physician: ED Physician; Name: Dr. Arevalo; Notified At: 17:59; Arrived At: 18:01 Physician: General Surgeon; Name: ; Notified At: 17:59; Arrived At: Physician: Radiology; Name: CT \T\ central processing tech; Notified At: 17:59; Arrived At: 18:01 Physician: Respiratory; Name: ; Notified At: 17:59; Arrived At: Physician: Lab; Name: ; Notified At: 17:59; Arrived At: Historical: - Allergies: 10/22 18:13 Ciprofloxacin; kc6 - Home Meds: 18:13 Benadryl 25 mg Oral cap 2 caps once daily [Active]; kc6 - PMHx: 18:13 Prostate Cancer; skin cancer; kc6 - PSHx: 18:13 Tonsillectomy; kc6 - Immunization history:: Client reports receiving the 2nd dose of the Covid vaccine, Flu vaccine is not up to date. - Social history:: Smoking status: Patient denies any tobacco usage or history of. Patient uses alcohol, on a daily basis. - Immunization history: Last tetanus immunization: unknown. Screenin:24 Abuse screen: Denies threats or abuse. Denies injuries from another. Tuberculosis kc6 screening: No symptoms or risk factors identified. 10/23 04:46 Nutritional screening: No deficits noted. Fall Risk Fall in past 12 months (25 points). aa9 Primary Survey: 10/22 18:22 NO uncontrolled hemorrhage observed. A: The client is awake and alert. The airway is kc6 patent. Breathing/Chest: Spontaneous respiratory effort, equal unlabored respirations, breath sounds clear bilaterally, regular pattern, symmetrical chest rise and fall. Circulation: No external hemorrhage present. Regular and strong central pulse, skin warm/dry/normal color. Disability Pupils are equal, round, reactive to light and accommodation. Exposure/Environment: All clothing and personal items were removed. Forensic evidence collection is not deemed to be indicated at this time. Items placed in patient belonging bag. There is no evidence of uncontrolled external bleeding. Obvious injury(ies) are noted at this time: small laceration to the back of the head right side. 10/23 04:45 Reassessment Breathing: Spontaneous respiratory effort, equal unlabored respirations, aa9 breath sounds clear bilaterally, regular pattern with symmetrical chest rise and fall. Respiratory effort Spontaneous Breath sounds Clear. Secondary Survey: 10/22 18:24 HEENT: No deficits noted. Gastrointestinal: No deficits noted. : No signs and/or kc6 symptoms were reported regarding the genitourinary system. Musculoskeletal: No signs and/or symptoms reported regarding the musculoskeletal system. Assessment: 18:18 General: Appears in no apparent distress. comfortable, Behavior is calm, cooperative, kc6 appropriate for age. Pain: Complains of pain in back of head Pain does not radiate. Unable to use pain scale. Patient is disoriented. Does not appear to understand pain scale. FLACC scale score is 0 out of 10. Neuro: Grubbs Agitation-Sedation Scale (RASS): 0 - Alert and Calm Level of Consciousness is awake, alert, obeys commands, Oriented to person. EENT: No signs and/or symptoms were reported regarding the EENT system. Cardiovascular: Heart tones S1 S2 present Capillary refill < 3 seconds. Respiratory: Airway is patent Trachea midline Respiratory effort is even, unlabored, Respiratory pattern is regular, symmetrical, Breath sounds are clear bilaterally. GI: No signs and/or symptoms were reported involving the gastrointestinal system. : No signs and/or symptoms were reported regarding the genitourinary system. Derm: Skin has skin tears on back of head right side Skin is dry, Skin is pink, warm \T\ dry. Skin temperature is warm. Musculoskeletal: No signs and/or symptoms reported regarding the musculoskeletal system. Circulation, motion, and sensation intact. Capillary refill < 3 seconds, Range of motion: intact in all extremities. 19:30 General: Appears comfortable, slender, Behavior is calm, appropriate for age. Neuro: aa9 Level of Consciousness is awake, alert, obeys commands, Oriented to person. Respiratory: Airway is patent Respiratory effort is even, unlabored. GI: No signs and/or symptoms were reported involving the gastrointestinal system. : No signs and/or symptoms were reported regarding the genitourinary system. Derm: Skin with poor turgor Skin is dry, Skin is pink, warm \T\ dry. 22:04 Reassessment: Patient appears in no apparent distress at this time. Patient is alert, aa9 oriented x 3, equal unlabored respirations, skin warm/dry/pink. paged lab for recollect. 10/23 02:03 Reassessment: Patient appears in no apparent distress at this time. Patient is alert, aa9 oriented x 3, equal unlabored respirations, skin warm/dry/pink. 04:18 Reassessment: Patient appears in no apparent distress at this time. Patient is alert, aa9 oriented x 3, equal unlabored respirations, skin warm/dry/pink. report provided to [place] ANTHON[place] [facility] 04:44 Reassessment: Patient appears in no apparent distress at this time. report provide to eduardo Bailey EMT with [facility], pt and aware of need for transfer denies any concerns. 05:00 Reassessment: Patient appears in no apparent distress at this time. Patient is alert, aa9 oriented x 3, equal unlabored respirations, skin warm/dry/pink. pt VS stable upon transportation to ambulance via stretcher, vancomycin infusion continued. Vital Signs: 10/22 18:10 BP 137 / 85; Pulse 125; Resp 35 S; Temp 99.1(O); Pulse Ox 100% on R/A; Weight 54.43 kg kc6 (R); Height 5 ft. 11 in. (180.34 cm) (R); 23:16 BP 140 / 60; Pulse 102; Resp 24 S; Temp 98(O); Pulse Ox 96% on R/A; aa9 23:45 BP 124 / 74; Pulse 97; Resp 19 S; Pulse Ox 97% on R/A; aa9 10/23 00:30 BP 127 / 88; Pulse 86; Resp 18 S; Pulse Ox 100% on R/A; aa9 01:00 BP 139 / 59; Pulse 95; Resp 20; Pulse Ox 100% on R/A; aa9 02:00 BP 136 / 74; Pulse 103; Resp 19 S; Pulse Ox 98% on R/A; aa9 10/22 18:10 Body Mass Index 16.74 (54.43 kg, 180.34 cm) kc6 [place] Coma Score: 10/22 18:29 Eye Response: spontaneous(4). Verbal Response: confused(4). Motor Response: obeys kc6 commands(6). Total: 14. Trauma Score (Adult): 18:29 Eye Response: spontaneous(1); Verbal Response: confused(1); Motor Response: obeys kc6 commands(2); Systolic BP: > 89 mm Hg(4); Respiratory Rate: 10 to 29 per min(4); Leslie Score: 14; Trauma Score: 12 ED Course: 18:10 Patient arrived in ED. kc6 18:10 Alondra Zeng, GABRIELLE is Primary Nurse. kc6 18:13 Triage completed. kc6 18:20 Suman Irwin PA is PHCP. cp 18:20 Irving Arevalo MD is Attending Physician. cp 18:30 Patient has correct armband on for positive identification. Placed in gown. Bed in low kc6 position. Call light in reach. Side rails up X2. Adult w/ patient. 18:30 Client placed on continuous cardiac and pulse oximetry monitoring. NIBP monitoring kc6 applied. monitoring manager on. 18:31 Patient maintains SpO2 saturation greater than 95% on room air. Thermoregulation: warm kc6 blanket given to patient. 18:57 XRAY Chest (1 view) In Process Unspecified. EDMS 18:57 CT Traumagram (Head C Spine CAP wo con) In Process Unspecified. EDMS 19:10 Missed attempt(s): 20 gauge in right antecubital area. Bleeding controlled, band aid aa9 applied, catheter tip intact. 19:20 Missed attempt(s): 20 gauge in right forearm. Bleeding controlled, band aid applied, aa9 catheter tip intact. 19:35 Procalcitonin Sent. aa9 19:35 Lactate w/ 2H reflex if indic. Sent. aa9 19:35 Blood Culture Adult (2) Sent. aa9 19:35 COVID-19/FLU A+B Sent. aa9 19:35 Troponin HS Sent. aa9 19:35 PT-INR Sent. aa9 19:35 NT PRO-BNP Sent. aa9 19:35 Magnesium Sent. aa9 19:35 LFT's Sent. aa9 19:36 Basic Metabolic Panel Sent. aa9 20:10 Inserted saline lock: 22 gauge in left forearm, using aseptic technique. aa9 20:12 COVID-19/FLU A+B Sent. aa9 21:29 Urine Microscopic Only Sent. aa9 23:48 Larissa Carvalho MD is Hospitalizing Provider. 10/23 00:42 initiated a transfer with Millie from [facility]. mw2 01:02 Connected Suman [place] with the Hospitalist from [facility]. mw2 02:00 No provider procedures requiring assistance completed. IV discontinued, intact, aa9 bleeding controlled, No redness/swelling at site. Pressure dressing applied. 02:38 Lactate w/ 2H reflex if indic.: redraw at 0200 Sent. aa9 02:38 Urine Culture Sent. aa9 03:13 called [facility] to give them the repeat lab result. mw2 03:15 ABG: VBG please Sent. mw2 03:34 connected Suman [place] with the Doctor from [facility]. mw2 03:44 administrative approval given by Michelle Pinto/ patient has been accepted to [facility] mw2 to bed 2019/ Dr. Felipe accepted the patient in transfer/report to be called to [phone]. 04:46 Arm band placed on. aa9 Administered Medications: 10/22 20:12 Drug: NS 0.9% 500 ml Route: IV; Rate: bolus; Site: left forearm; aa9 20:12 Drug: NS 0.9% 500 ml Route: IV; Rate: 100 ml/hr; Site: left forearm; aa9 10/23 01:27 Drug: ceFAZolin 1 grams Volume: 50 ml; Route: IVPB; Infused Over: 30 mins; [facility]; 02:12 Follow up: Response: No adverse reaction; IV Status: Completed infusion; IV Intake: [id number] 01:27 Drug: NS 0.9% 500 ml Route: IV; Rate: bolus; Site: Port-a-cath; aa9 02:12 Follow up: Response: No adverse reaction; IV Status: Completed infusion; IV Intake: aa9 500ml 01:30 Drug: Magnesium Sulfate 2 grams Route: IVPB; Infused Over: 2 hrs; Site: Port-a-cath; aa9 03:52 Follow up: Response: No adverse reaction; IV Status: Completed infusion; IV Intake: [id number] 02:12 Drug: NS 0.9% (30 ml/kg) 30 ml/kg Route: IV; Rate: bolus; Site: Port-a-cath; aa9 02:39 Follow up: Response: No adverse reaction; IV Status: Completed infusion aa9 03:52 Drug: vancoMYCIN 1 grams Route: IVPB; Infused Over: 2 hrs; Site: Port-a-cath; aa9 05:02 Follow up: Response: No adverse reaction; IV Status: Infusion continued; IV Intake: aa9 125ml Medication: 10/22 20:15 VIS not applicable for this client. aa9 Intake: 10/23 02:12 IV: 50ml; Total: 50ml. aa9 02:12 IV: 500ml; Total: 550ml. aa9 03:52 IV: 50ml; Total: 600ml. aa9 04:46 PO: 100ml (Water); Total: 700ml. aa9 05:02 IV: 125ml; Total: 825ml. aa9 Output: 04:46 Urine: 50ml (Voided); Total: 50ml. aa9 Outcome: 10/22 23:48 Decision to Hospitalize by Provider. cp 10/23 00:34 ER care complete, transfer ordered by MD. cp 04:46 Transferred by ground EMS to [facility], Transfer form completed. aa9 04:46 Condition: stable 04:46 Patient's length of stay was not longer than 2 hours. aa9 05:01 Patient left the ED. aa9 Signatures: Dispatcher [employer] EDMS Suman Irwin PA PA cp Jamila Mason mw2 Glenda Martin RN RN aa9 Alondra Zeng RN RN kc6 Corrections: (The following items were deleted from the chart) 10/22 18:18 18:[address] Arevalo notified at 17:59; General Surgeon notified kc6 at 17:59; Radiology notified at 17:59; Respiratory notified at 17:59; Lab notified at 17:59 kc6 18:29 18:22 Reassessment Alertness and Airway: Awake and alert. The airway is patent. kc6 Breathing: Spontaneous respiratory effort, equal unlabored respirations, breath sounds clear bilaterally, regular pattern with symmetrical chest rise and fall. Circulation: No external hemorrhage noted. Regular and strong central pulse, skin warm/dry/normal color. Disability: Pupils Pupils are equal, round, reactive to light and accomodation. kc6 20:14 19:30 Inserted saline lock: 22 gauge in left forearm, using aseptic technique. Blood aa9 collected. aa9 10/23 05:02 05:00 Reassessment: Patient appears in no apparent distress at this time. Patient is aa9 alert, oriented x 3, equal unlabored respirations, skin warm/dry/pink. pt VS stable upon transportation to ambulance via stretcher aa9
--- NOTE | 2022-10-22 23:49 | EDPHYS ---
Physician Documentation [facility] Name: Roxane Chávez Age: 81 yrs Sex: Male : 1940 Arrival Date: 10/22/2022 Time: 18:10 Bed 20 Private MD: ED Physician Irving Arevalo HPI: 10/22 18:35 This 81 yrs old Male presents to ER via EMS with complaints of Altered Mental cp Status. 18:35 The patient presents with confusion. Onset: The symptoms/episode began/occurred 2 cp day(s) ago. Possible causes: head injury, a fall, while in bathroom today. Associated signs and symptoms: Pertinent positives: weakness, Pertinent negatives: abdominal pain, chest pain, fever. Patient's baseline: Neuro: alert but confused, Motor: no deficits, Ambulation: walks without assistance, Speech: normal. 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 Last chemo treatment was Oct 17. Was also patient's final treatment. Patient was seen next day for Neupogen injection. reports patient fell earlier today while in restroom and hit head. No reported LOC. Historical: - Allergies: 18:13 Ciprofloxacin; kc6 - Home Meds: 18:13 Benadryl 25 mg Oral cap 2 caps once daily [Active]; kc6 - PMHx: 18:13 Prostate Cancer; skin cancer; kc6 - PSHx: 18:13 Tonsillectomy; kc6 - Immunization history:: Client reports receiving the 2nd dose of the Covid vaccine, Flu vaccine is not up to date. - Social history:: Smoking status: Patient denies any tobacco usage or history of. Patient uses alcohol, on a daily basis. - Immunization history: Last tetanus immunization: unknown. ROS: 18:40 Constitutional: Positive for poor PO intake, Negative for body aches, chills, fever. cp 18:40 Eyes: Negative for injury, pain, redness, and discharge. cp 18:40 Cardiovascular: Negative for chest pain, edema. 18:40 Respiratory: Negative for cough, shortness of breath, wheezing. 18:40 Abdomen/GI: Negative for abdominal pain, vomiting, diarrhea, constipation, black/tarry stool, rectal bleeding. 18:40 ENT: Negative for drainage from ear(s), ear pain, sore throat, difficulty swallowing, cp difficulty handling secretions. 18:40 Skin: Negative for cellulitis, rash. 18:40 Neuro: Positive for altered mental status, weakness, Negative for headache. 18:40 All other systems are negative. Exam: 18:42 ECG was reviewed by the Attending Physician. cp 18:45 Constitutional: The patient appears in no acute distress, alert, awake, cp non-diaphoretic, non-toxic, well developed, frail. 18:45 Head/Face: Normocephalic, atraumatic. cp 18:45 Eyes: Periorbital structures: appear normal, Pupils: equal, round, and reactive to light and accomodation, Extraocular movements: intact throughout, Conjunctiva: normal, no exudate, no injection, Sclera: no appreciated abnormality, Lids and lashes: appear normal, bilaterally. 18:45 ENT: External ear(s): are unremarkable, Nose: is normal, Mouth: Lips: dry, Oral mucosa: dry, Posterior pharynx: Airway: no evidence of obstruction, patent, Tonsils: no enlargement, no erythema, no exudate, swelling, is not appreciated, erythema, is not appreciated, exudate, is not appreciated. 18:45 Neck: ROM/movement: is normal, is supple, without pain, no range of motions limitations, no meningismus, no nuchal rigidity. 18:45 Chest/axilla: Inspection: port right upper chest wall, Palpation: crepitus, is not appreciated, tenderness, is not appreciated. 18:45 Cardiovascular: Rate: tachycardic, Rhythm: regular, Edema: is not appreciated, JVD: is not appreciated. 18:45 Respiratory: the patient does not display signs of respiratory distress, Respirations: normal, no use of accessory muscles, no retractions, labored breathing, is not present, Breath sounds: are clear throughout, no decreased breath sounds, no stridor, no wheezing. 18:45 Abdomen/GI: Inspection: abdomen appears normal, Bowel sounds: active, all quadrants, Palpation: abdomen is soft and non-tender, in all quadrants. 18:45 Back: pain, is absent, ROM is normal. 18:45 Skin: cellulitis, is not appreciated, no rash present. 18:45 Neuro: Orientation: to person, Mentation: able to follow commands, confused, Motor: moves all fours, general weakness with no focal deficits, Sensation: no obvious gross deficits. Vital Signs: 18:10 BP 137 / 85; Pulse 125; Resp 35 S; Temp 99.1(O); Pulse Ox 100% on R/A; Weight 54.43 kg kc6 (R); Height 5 ft. 11 in. (180.34 cm) (R); 23:16 BP 140 / 60; Pulse 102; Resp 24 S; Temp 98(O); Pulse Ox 96% on R/A; aa9 23:45 BP 124 / 74; Pulse 97; Resp 19 S; Pulse Ox 97% on R/A; aa9 10/23 00:30 BP 127 / 88; Pulse 86; Resp 18 S; Pulse Ox 100% on R/A; aa9 01:00 BP 139 / 59; Pulse 95; Resp 20; Pulse Ox 100% on R/A; aa9 02:00 BP 136 / 74; Pulse 103; Resp 19 S; Pulse Ox 98% on R/A; aa9 10/22 18:10 Body Mass Index 16.74 (54.43 kg, 180.34 cm) kc6 [place] Com[place] Score: 10/22 18:29 Eye Response: spontaneous(4). Verbal Response: confused(4). Motor Response: obeys kc6 commands(6). Total: 14. Trauma Score (Adult): 18:29 Eye Response: spontaneous(1); Verbal Response: confused(1); Motor Response: obeys kc6 commands(2); Systolic BP: > 89 mm Hg(4); Respiratory Rate: 10 to 29 per min(4); [place] Score: 14; Trauma Score: 12 MDM: 18:33 Patient medically screened. 19:00 Differential Diagnosis: electrolyte abnormality, intracranial bleed, pneumonia, sepsis, cp UTI, volume depletion. 10/23 01:00 Physician consultation: was contacted at 01:00, regarding regarding transfer, to [facility]. patient's condition, spoke with DR Felipe who requests repeat lactate, ABG, and to give sepsis fluid bolus before accepting transfer. 03:35 Data reviewed: vital signs, nurses notes, lab test result(s), EKG, radiologic studies, cp CT scan, plain films. 03:35 Test interpretation: by ED physician or midlevel provider: ECG, plain radiologic cp studies. 03:55 Physician consultation: was contacted at 03:55, regarding regarding transfer, to [facility]. patient's condition, accepting physician will be DR Felipe, hospitalist. 10/22 18:31 Order name: Basic Metabolic Panel; Complete Time: 23:17 / 23:29 Interpretation: BUN 22. la1 10/22 18:31 Order name: CBC with Diff; Complete Time: 23:27 10/22 22:44 Interpretation: Reviewed. 10/22 18:31 Order name: LFT's; Complete Time: 23:17 / 23:33 Interpretation: Normal except: TP 6.2; ALB 2.8; A/G 0.8. / 18:31 Order name: Magnesium; Complete Time: 23:17 / 23:33 Interpretation: Abnormal: MG 1.5. 10/22 18:31 Order name: NT PRO-BNP; Complete Time: 23:17 10/22 23:39 Interpretation: Abnormal: NT PRO-BNP 1508. 10/22 18:31 Order name: PT-INR; Complete Time: 22:52 10/22 23:07 Interpretation: Reviewed. 10/22 18:31 Order name: Troponin HS; Complete Time: 23:17 10/22 23:40 Interpretation: Abnormal: Troponin HS 88.9. 10/22 18:31 Order name: COVID-19/FLU A+B; Complete Time: 21:23 10/22 18:31 Order name: Urine Microscopic Only; Complete Time: 22:44 10/22 23:08 Interpretation: Reviewed. 10/22 18:32 Order name: Blood Culture Adult (2) 10/22 18:32 Order name: Lactate w/ 2H reflex if indic.; Complete Time: 21:23 10/22 21:23 Interpretation: Abnormal: LAC 2.1. / 18:32 Order name: Procalcitonin; Complete Time: 21:23 / 21:20 Order name: Urine Dipstick-Ancillary; Complete Time: 21:23 EDND 10/22 22:45 Order name: CBC Smear Scan; Complete Time: 23:27 EDND 10/22 18:31 Order name: XRAY Chest (1 view); Complete Time: 19:33 10/22 23:08 Interpretation: Report review. 10/22 18:31 Order name: EKG; Complete Time: 18:31 10/22 18:31 Order name: Cardiac monitoring; Complete Time: 18:32 10/22 18:31 Order name: EKG - Nurse/Tech; Complete Time: 18:40 10/22 18:31 Order name: CT Traumagram (Head C Spine CAP wo con); Complete Time: 19:33 10/22 19:33 Interpretation: Report reviewed. 10/22 23:00 Order name: Lactate Sepsis 2 HR Follow-up; Complete Time: 23:07 EDMS 10/22 23:07 Interpretation: Abnormal: LACTATE SEPSIS 2.6. 10/23 01:11 Order name: Urine Culture 10/23 01:31 Order name: ABG: VBG please 10/23 01:37 Order name: Lactate w/ 2H reflex if indic.: redraw at 0200; Complete Time: 03:33 10/22 18:31 Order name: IV Saline Lock; Complete Time: 20:15 10/22 18:31 Order name: Labs collected and sent; Complete Time: 19:35 10/22 18:31 Order name: O2 Per Protocol; Complete Time: 18:32 10/22 18:31 Order name: O2 Sat Monitoring; Complete Time: 18:32 10/22 18:31 Order name: Urine Dipstick-Ancillary (obtain specimen); Complete Time: 21:29 10/22 23:12 Order name: Vital Signs: please update to include temp; Complete Time: 23:17 cp EC/05 18:42 Rate is 110 beats/min. Rhythm is regular. IA interval is normal. QRS interval is cp normal. QT interval is normal. Interpreted by me. Reviewed by me. Administered Medications: 20:12 Drug: NS 0.9% 500 ml Route: IV; Rate: bolus; Site: left forearm; aa9 20:12 Drug: NS 0.9% 500 ml Route: IV; Rate: 100 ml/hr; Site: left forearm; aa9 10/23 01:27 Drug: ceFAZolin 1 grams Volume: 50 ml; Route: IVPB; Infused Over: 30 mins; Site: aa9 Port-a-cath; 02:12 Follow up: Response: No adverse reaction; IV Status: Completed infusion; IV Intake: [id number] 01:27 Drug: NS 0.9% 500 ml Route: IV; Rate: bolus; Site: Port-a-cath; aa9 02:12 Follow up: Response: No adverse reaction; IV Status: Completed infusion; IV Intake: aa9 500ml 01:30 Drug: Magnesium Sulfate 2 grams Route: IVPB; Infused Over: 2 hrs; Site: Port-a-cath; aa9 03:52 Follow up: Response: No adverse reaction; IV Status: Completed infusion; IV Intake: [id number] 02:12 Drug: NS 0.9% (30 ml/kg) 30 ml/kg Route: IV; Rate: bolus; Site: Port-a-cath; aa9 02:39 Follow up: Response: No adverse reaction; IV Status: Completed infusion aa9 03:52 Drug: vancoMYCIN 1 grams Route: IVPB; Infused Over: 2 hrs; Site: Port-a-cath; aa9 05:02 Follow up: Response: No adverse reaction; IV Status: Infusion continued; IV Intake: aa9 125ml Disposition: 10:55 Co-signature as Attending Physician, Irving Arevalo MD I agree with the assessment and kdr plan of care. Disposition Summary: 10/23/22 00:34 Transfer Ordered Transfer Location: [facility] cp Reason: Higher level of care cp Condition: Stable(10/23/22 00:34) cp Problem: new(10/23/22 00:34) cp Symptoms: have improved(10/23/22 00:34) cp Accepting Physician: DR Felipe(10/23/22 05:01) aa9 Diagnosis - Altered mental status, unspecified cp - Neutropenia, unspecified(10/23/22 02:56) cp Forms: - Medication Reconciliation Form cp - SBAR form cp Signatures: Dispatcher [employer] EDIrving Felix MD MD kdr Attema, Lee, FNP-C FNP-Cla1 Suman Irwin PA PA cp Glenda Martin, RN RN aa9 Alondra Zeng RN RN kc6 Corrections: (The following items were deleted from the chart) 00:33 10/22 23:48 Inpatient Admission cp cp 10/23 00:10/22 23:48 Larissa Carvalho cp cp 10/23 00:10/22 23:48 Telemetry/MedSurg (Inpatient) cp cp 10/23 00:10/22 23:48 Stable cp cp 10/23 00:10/22 23:48 new cp cp 10/23 00:10/22 23:48 have improved cp cp 10/23 00:10/22 23:48 Standard cp cp 10/23 00:10/22 23:48 cp cp 10/23 00:10/22 23:48 Neutropenia, unspecified cp cp 10/23 02:56 00:34 Doctor cp cp 03:37 02:56 Doctor cp cp 05:01 03:37 DR Felipe cp aa9
[2022-10-23] MEDS ORDERED: CEFAZOLIN SODIUM 1 GM/VIAL ONE (00:29)
[2022-10-23] MEDS ORDERED: VANCOMYCIN 1 GM/VIAL ONE (00:29)
[2022-10-23] MEDS ORDERED: Magnesium Sulfate 2gm IVPB 2 G/50 ML BAG IV ONE (00:30)
[2022-10-23] MEDS ORDERED: NA CHLORIDE 0.9% 50 ML IV ONE (00:30)
[2022-10-23] MEDS ORDERED: NA CHLORIDE 0.9% 250 ML ONE (00:30)
[2022-10-23] MEDS ORDERED: NA CHLORIDE 0.9% 500 ML ONE ×2 (00:30→02:07)
[2022-10-23 03:47] LABS: Arterial Blood Carboxyhemoglob 1.6 % (0-1.5); Blood Gas Oxyhemoglobin 92.9 % (94-97); Blood O2 Saturation 95.5 % (92-98.5)
--- NOTE | 2022-10-23 08:37 | EKG ---
Test Date: 2022-10-22 Test Time: 18:35:28 Health Care Social Worker: MONSE MEASUREMENT RESULTS: Intervals: Rate: 110 ME: 162 QRSD: 90 QT: 348 QTc: 470 [place]: P: 69 ME: 162 QRS: 7 T: 68 INTERPRETIVE STATEMENTS: Sinus tachycardia with frequent premature ventricular complexes Otherwise normal ECG Compared to ECG 03/12/2022 07:40:38 Ventricular premature complex(es) now present Sinus rhythm no longer present Electronically Signed On 10-23-22 08:34:39 [employer] by Cash De La Cruz
[2022-10-23 09:08] VITALS: TEMP 98
[2022-10-23 09:17] VITALS: BP 136/74; O2SAT 98
== END 2022-10-23 05:01 | disposition short-term general hospital (02) ==
LOC: ER 17:59
DX: R41.82 Altered mental status, unspecified (principal); D70.9 Neutropenia, unspecified; Z20.822 Contact with and (suspected) exposure to COVID-19; Z88.1 Allergy status to other antibiotic agents
CPT/HCPCS: 93005; 87040 ×2; 87088; 85025; 87086; 80048; 36415; 83735; 85610; 80076; 83605 ×3; 84484; 84145; 83880; 0240U; 70450; 71250; 72125; 71045; 82805; J3370; J3475; J7050; J7040 ×3; J0690; 81003; 81015; 96365; 96367; 99285